=== PATIENT | female | born 1935 | race Caucasian/White ===

== ENCOUNTER → 2016-12-23 | Outpatient (CLI) | payer MEDICARE, OTHER ==
[~2016-12-23] MED LIST: DENOSUMAB 60 MG/ML 1 ML SYRINGE SQ ONE
[2016-12-23 13:16] VITALS: BP 130/73; PULSE 72; RESP 16; TEMP 97.7
== END | disposition home or self-care (01) ==
LOC: PROCWHC3 12:33
PROVIDERS: ATTEND Physician Assistant Medical
DX: M81.0 Age-related osteoporosis without current pathological fracture (principal)
CPT/HCPCS: 96372; J0897

== ENCOUNTER → 2017-03-25 | Outpatient (CLI) | payer MEDICARE, OTHER ==
--- NOTE | 2017-03-26 09:09 | MM ---
Reason for exam: screening (asymptomatic). Last mammogram was performed 4 years and 10 months ago. History: Patient is postmenopausal and has history of colon cancer at age 61. Family history of breast cancer in daughter at age 55. Benign excisional biopsy of the left breast. Physical Findings: A clinical breast exam by your physician is recommended on an annual basis and results should be correlated with mammographic findings. MG 3D Screening Mammo W/Cad Bilateral CC and MLO view(s) were taken. Prior study comparison: May 24, 2012, bilateral digital screening mammo w/CAD. July 16, 2010, bilateral digital screening mammogram. There are scattered fibroglandular densities. Finding: There are typically benign calcifications. There is a chronic nodularity in the right breast. ASSESSMENT: Benign, BI-RAD 2 RECOMMENDATION: Routine screening mammogram of both breasts in 1 year.
== END | disposition home or self-care (01) ==
LOC: RADMAMWWP 11:19
PROVIDERS: ATTEND Family Medicine
DX: Z12.31 Encounter for screening mammogram for malignant neoplasm of breast (principal); Z80.3 Family history of malignant neoplasm of breast
CPT/HCPCS: 77063; G0202

== ENCOUNTER → 2018-02-09 | Outpatient (CLI) | payer MEDICARE, OTHER ==
--- NOTE | 2018-02-10 10:01 | CT ---
EXAMINATION TYPE: CT abdomen pelvis w con DATE OF EXAM: 02/09/2018 COMPARISON: 09/02/2010 INDICATION: Upper Abdominal pain with nausea DLP: 604.6 mGycm, Automated exposure control for dose reduction was used. CONTRAST: 100 mL of Isovue 300. Study performed with Oral Contrast TECHNIQUE: Axial images were obtained from above the diaphragm to the pubic rami in the axial plane a t 5 mm thick sections. Reconstructed images are reviewed on the computer in the coronal plane. FINDINGS: Limited CT sections are obtained the lung bases. There is a stable 0.7 cm nodule within the posterio r right lung base. Lung bases are otherwise clear.. CT ABDOMEN: Liver: Normal Spleen: Normal Pancreas: Pancreas atrophy is present. There is a markedly dilated pancreatic duct measuring 1.0 cm i n the mid body of the pancreas and 0.5 cm at the distal tail of the pancreas. These measurements shou ld be 0.2 and 0.1 cm respectively. At the head of the pancreas there is a hypodense lesion estimated to measure 2.9 cm AP by 2.8 cm transverse. This appears to be abutting the superior mesenteric artery . Encasement is not identified. Common bile duct has mild prominence but is not dilated for postchole cystectomy patient and 0.6 cm. Adrenal glands: The adrenal glands are normal. Gallbladder: Normal Kidneys: No masses are evident. No hydronephrosis is present. No cysts are present. Delayed images were obtained through the kidneys, which remain unremarkable. Aorta: Vascular calcification is within the aorta. Inferior vena cava: Normal. CT PELVIS: Loops of bowel within the abdomen and pelvis are normal. There are loops of bowel which are incom pletely distended or lack oral contrast limiting their evaluation. Appendix: Normal as visualized. Urinary bladder: Decompressed with limited evaluation. Genitourinary structures: Uterus is not identified. There appear to be cysts on the right adnexal reg ion measuring 1.5 cm and 0.8 cm transverse. Left adnexal region is unremarkable. Osseous structures: No suspicious lytic or sclerotic lesions. Old pubic ramus fracture is evident. Sa croiliac joint degenerative changes are present. Facet degenerative changes and hypertrophy are withi n the lumbar spine. IMPRESSIONS: 1. Suspicious mass within the head of the pancreas measuring 2.9 x 2.8 cm with distal pancreatic mitchell t dilatation. Additional workup for neoplasm is recommended. 2. Suspected right ovarian cysts. A [place] level critical message alert has been initiated for Dina Sotomayor DO via the [employer] Critical Results System on 02/10/2018 9:58 AM. This message alert has been sent to Dina ortega DO via the preferences provided by the clinician for the receipt of Radiology Critical Findings. Message ID [id number].
== END | disposition home or self-care (01) ==
LOC: RADCTMAIN 16:46
PROVIDERS: ATTEND Family Medicine
DX: R74.8 Abnormal levels of other serum enzymes (principal)
CPT/HCPCS: 82565; 84520; 74177; 36415; Q9967

== ENCOUNTER → 2018-02-16 | Outpatient (CLI) | payer MEDICARE, OTHER ==
--- NOTE | 2018-02-17 01:37 | MR ---
EXAMINATION TYPE: MR pancreas wo/w con DATE OF EXAM: 02/16/2018 COMPARISON: NONE HISTORY: Mass of pancreas CONTRAST: Standard multiplanar, multisequence MRI departmental protocol utilizing 6.5 mL intravenous Gadavist g adolinium contrast. FINDINGS: Liver shows no focal defect. Bile ducts are not dilated. There is enlargement of the entire pancreatic duct with a beaded appearance. There is a 3 x 2.5 cm rounded mass involving the posterior pancreatic head with slight increased signal compared to the remainder of the gland on the T2 images . This area shows decreased enhancement compared to the remainder of the gland on the contrast images . There is fairly uniform enhancement of the spleen and liver. There is no adrenal mass. Kidneys have normal size and contour. There is no hydronephrosis. There is no retroperitoneal adenopathy. IMPRESSION: Irregularly dilated pancreatic duct consistent with chronic pancreatitis. Rounded solid mass involvin g the posterior pancreatic head suggestive of primary tumor. This appears unchanged compared to the CT scan of the abdomen of 02/09/2018.
== END | disposition home or self-care (01) ==
LOC: RADMRIMAIN 11:30
PROVIDERS: ATTEND Family Medicine
DX: K86.89 Other specified diseases of pancreas (principal)
CPT/HCPCS: 74183; A9581

== ENCOUNTER → 2018-03-19 | Outpatient (CLI) | payer MEDICARE, OTHER ==
--- NOTE | 2018-03-21 14:20 | PE ---
Nuclear medicine PET/CT HISTORY: Pancreatic carcinoma, initial Patient received 10.2 mCi F-18 FDG intravenously in delayed scanning was performed from the skull bas e to the mid thighs. Localization and attenuation correction CT scan was performed. Correlation to CT abdomen pelvis dated 02/09/2018, MR pancreas 02/16/2018 Neck and chest: There is no evident cervical adenopathy. No suspicious hypermetabolic uptake within t he neck. Coronary artery calcifications are dense, the heart is enlarged. There is no evident lung ma ss. There is a soft tissue mass within the right breast with associated hypermetabolic uptake, SUV 6.8, t he mass measures 15 mm. Abdomen pelvis: Poorly defined pancreatic head mass present measuring approximately 3.3 cm and shows an associated SUV 6.8. No additional suspicious hypermetabolic uptake, no retroperitoneal adenopathy. Inferior vena cava filter is in place. Dilated pancreatic duct is suspected. Intrahepatic biliary di lation also present, patient is post cholecystectomy. Atheromatous changes present within the abdomin al aorta. Osseous structures are within normal limits. IMPRESSION: Findings compatible with patient's history of pancreatic carcinoma. Correlate for possibl e right breast carcinoma. Indeterminate hypermetabolic uptake is noted as described. Consider mammogr aphy, right breast ultrasound.
== END | disposition home or self-care (01) ==
LOC: RADPETMAIN 14:03
PROVIDERS: ATTEND Internal Medicine Hematology & Oncology
DX: C25.0 Malignant neoplasm of head of pancreas (principal)
CPT/HCPCS: 78815; A9552

== ENCOUNTER 2018-03-30 11:46 | Inpatient (IN) | payer MEDICARE, OTHER ==
--- NOTE | 2018-03-30 12:40 | ED ---
General Adult HPI - General Chief complaint: Fall Stated complaint: Fall-Back Pain Time Seen by Provider: 03/30/18 11:49 Source: patient, RN notes reviewed, old records reviewed Mode of arrival: wheelchair Limitations: no limitations - History of Present Illness Initial comments: 83-year-old female presents status post fall. Patient was walking into the bank , she fell onto her low back. She is complaining of low back pain. According to her there was minor head injury. No loss of consciousness. Patient does not complain of head or neck pain. She was able to ambulate with assistance after the fall. She is on Coumadin for history of atrial fibrillation. Denies any focal numbness or weakness. Patient's pain is only in her lumbar spine. Location: genitals - Related Data Home Medications Medication Instructions Recorded Confirmed Isosorbide Mononitrate ER [Imdur] 30 mg PO DAILY 02/13/15 03/30/18 Metoprolol Tartrate [Lopressor] 50 mg PO BID 02/13/15 03/30/18 Mirabegron [Myrbetriq] 50 mg PO DAILY 02/13/15 03/30/18 Nitroglycerin Sl Tabs [Nitrostat] 0.4 mg SUBLINGUAL DAILY PRN 02/13/15 03/30/18 Simvastatin [Zocor] 40 mg PO HS 02/13/15 03/30/18 Calcium Carbonate/Vitamin D3 1 tab PO DAILY 03/30/18 03/30/18 [Calcium 600-Vit D3 200 Tablet] Diltiazem HCl [Cartia Xt] 240 mg PO DAILY 03/30/18 03/30/18 Ergocalciferol [Vitamin D2] 50,000 unit PO Q14D 03/30/18 03/30/18 Previous Rx's Medication Instructions Recorded Warfarin [Coumadin] 5 mg PO DAILY@1800 tab 08/06/17 Allergies Allergy/AdvReac Type Severity Reaction Status Date / Time sertraline [From Zoloft] Allergy Unknown Verified 03/30/18 12:18 Sulfa (Sulfonamide Allergy Itching Verified 03/30/18 12:18 Antibiotics) ibuprofen [From Motrin] AdvReac Diarrhea Verified 03/30/18 12:18 Penicillins AdvReac Itching Verified 03/30/18 12:18 Review of Systems ROS Statement: Those systems with pertinent positive or pertinent negative responses have been documented in the HPI. ROS Other: All systems not noted in ROS Statement are negative. Past Medical History Past Medical History: Atrial Fibrillation, Cancer, CVA/TIA, GERD/Reflux, Hyperlipidemia, Hypertension, Osteoarthritis (OA) Additional Past Medical History / Comment(s): leaky heart valve, hernia, hemmerhoids, had spinal menigitis, colon CA, DVT's, FX rib History of Any Multi-Drug Resistant Organisms: None Reported Past Surgical History: Back Surgery, Bowel Resection, Breast Surgery, Section, Hysterectomy, Joint Replacement, Orthopedic Surgery Additional Past Surgical History / Comment(s): colonoscopies, r/l eye implants, tendons repaired R leg and hand, Past Anesthesia/Blood Transfusion Reactions: No Reported Reaction Additional Past Anesthesia/Blood Transfusion Reaction / Comment(s): Pt has received blood in the past without reaction. Past Psychological History: No Psychological Hx Reported Smoking Status: Never smoker - Past Family History Daughter(s) Family Medical History: Cancer Additional Family Medical History / Comment(s): Daughter had breast cancer. Father Family Medical History: Cancer Additional Family Medical History / Comment(s): Father had colon cancer. Mother Family Medical History: Cancer Additional Family Medical History / Comment(s): Mother at the age of 29 yrs from a cerebral hemorrhage. Sister(s) Family Medical History: Deep Vein Thrombosis (DVT) General Exam Limitations: no limitations General appearance: alert, in no apparent distress Head exam: Present: atraumatic, normocephalic Eye exam: Present: normal appearance. Absent: PERRL (Right pupil 3 mm, left pupil 4 mm) ENT exam: Present: normal exam Neck exam: Present: normal inspection. Absent: tenderness, meningismus Respiratory exam: Present: normal lung sounds bilaterally Cardiovascular Exam: Present: regular rate, normal rhythm GI/Abdominal exam: Present: soft. Absent: distended, tenderness Extremities exam: Present: normal inspection, full ROM, normal capillary refill. Absent: tenderness, pedal edema, joint swelling, calf tenderness Back exam: Present: vertebral tenderness (Lumbar) Psychiatric exam: Present: normal affect, normal mood Skin exam: Present: warm, dry, intact. Absent: cyanosis, diaphoretic Course Vital Signs 03/30/18 03/30/18 11:54 14:08 Temperature 97.0 F L Pulse Rate 82 65 Respiratory 18 18 Rate Blood Pressure 114/73 118/68 O2 Sat by Pulse 98 98 Oximetry Medical Decision Making - Medical Decision Making 83-year-old female status post slip and fall with chief complaint of back pain. Patient did have minor head injury, CT is obtained as the patient is on Coumadin, CT is negative for intracranial hemorrhage or mass effect. CT cervical spine negative for fracture subluxation. Chest x-ray is negative for acute cardiopulmonary disease. Patient's INR is subtherapeutic at 1.1. Pelvis x-ray reveals concern for inferior and superior pubic rami fracture on the left , CT is obtained and this is negative for acute bony abnormality. Lumbar spine x-ray and CT is performed, shows L2 endplate compression fracture which is comminuted and minimally displaced. Case is discussed with Addi, physician surgical assistant covering Dr. Bah from orthopedics. This is nonsurgical. Given the patient's significant pain and difficulty with ambulating secondary to pain she will be admitted for further evaluation and pain control. Admitted to internal medicine with orthopedics on consult. - Lab Data Lab Results 03/30/18 Range/Units 13:22 PT 10.8 (9.0-12.0) sec INR 1.1 (<1.2) Disposition Clinical Impression: Fall, L2 vertebral fracture Disposition: ADMITTED IP TO THIS HOSP Condition: Stable Is patient prescribed a controlled substance at d/c from ED?: No Referrals: Dina Sotomayor DO [Primary Care Provider] - 1-2 days Time of Disposition: 14:59 Decision to Admit Reason: Admit from EC Decision Date: 03/30/18 Decision Time: 14:59
--- NOTE | 2018-03-30 13:00 | XR ---
EXAMINATION TYPE: XR chest 2V DATE OF EXAM: 03/30/2018 COMPARISON: 07/31/2017 HISTORY: Shortness of breath TECHNIQUE: Frontal and lateral views of the chest are obtained. FINDINGS: Scattered senescent parenchymal changes noted. Hyperinflation compatible with COPD. No evidence for infiltrate. No evidence for atelectasis. Heart size is stable. Mediastinal structures are stable and grossly unremarkable. No evidence for hilar prominence. Degenerative changes dorsal spine. IMPRESSION: 1. No evidence for acute pulmonary disease.
--- NOTE | 2018-03-30 13:02 | XR ---
EXAMINATION TYPE: XR pelvis AP view DATE OF EXAM: 03/30/2018 CLINICAL HISTORY: pain TECHNIQUE: Single view the pelvis is submitted. FINDINGS: Deformity inferior and superior pubic ramus on the left may reflect relatively recent fract ure. Correlate clinically. SI joints appear symmetric. IMPRESSION: 1. I cannot exclude acute or subacute fractures left superior and inferior pubic rami. ICD 10 closed FRACTURE, INITIAL EVALUATION
--- NOTE | 2018-03-30 13:15 | XR ---
Lumbar spine HISTORY: Trauma and pain 3 views of the lumbar spine, comparison to CT abdomen pelvis dated 02/09/2018 Superior endplate L2 shows loss of height of approximately 20%, there is cortical irregularity the an terior aspect of the superior endplate fracture, interval finding, no evident retropulsion. T12 also show some mild central depression which appears stable. Bone mineralization is reduced. Sclerosis pre sent in the posterior elements compatible with facet arthropathy. Lumbar vertebral bodies show preser estee alignment. There is multilevel spondylosis. Loss of disc height greatest at L5-S1. Inferior vena cava filter is noted incidentally in the right paraspinal location, no significant the filter at L1-2 level. There are vascular calcifications. Surgical clips present right upper quadrant. IMPRESSION: Acute superior endplate L2 fracture as described. Osteopenia. Facet arthropathy and degen erative disc disease. Additional findings above.
[2018-03-30] MEDS: MORPHINE SULFATE 4 MG/ML SYRINGE IM STA ×2 (13:18→14:28)
--- NOTE | 2018-03-30 13:36 | CT ---
EXAMINATION TYPE: CT brain kettyine wo con DATE OF EXAM: 03/30/2018 COMPARISON: CT brain August 20, 2014 HISTORY: Fall injury with headache and neck pain. Recently diagnosed pancreatic cancer. CT DLP: 1380.3 mGycm. Automated Exposure Control for Dose Reduction was Utilized. TECHNIQUE: CT scan of the head and cervical spine are performed without contrast. FINDINGS: There is no acute intracranial hemorrhage or midline shift identified. There is ventricul ar and sulcal prominence consistent with diffuse cerebral atrophy. There is low-attenuation in the pe riventricular white matter. There is progression from prior study. Suspect old infarct right strauss r adiata axial image 26. Age indeterminate but suspected old infarct right internal capsule anterior li mb axial image 19. Correlate clinically. Hyperostosis frontalis is present The globes are intact and the visualized sinuses are clear. The calvarium is intact. Cervical spine is visualized in its entirety from C1 through upper thoracic levels and demonstrates r eversal of normal cervical curvature without evidence of acute fracture or dislocation. Prevertebral soft tissue appears within normal limits. The C1-C2 articulation is within normal limits on the cor onal images. Osseous structures are demineralized. There is moderate to advanced disc space narrowing with mild to moderate spurring C4-C5 level. There is ossific fusion at C5-C6 and C6-C7 disc space levels. Posteri or spurring effaces anterior thecal sac at C4-C5 level on sagittal images. Review of axial images michael ws multilevel uncovertebral facet degenerative changes for reference bilaterally C3-C4 level axial im age 39 contributing to multilevel neural foraminal narrowing at the upper to mid cervical spine thyro id gland is normal in size. Lung apices are clear. Moderate to severe calcified plaque right greater than left carotid bulbs is present. Consider nonemergent carotid ultrasound follow-up to exclude sign ificant stenosis. IMPRESSION: 1. There is no acute fracture or dislocation evident in the cervical spine. 2. No acute intracranial hemorrhage or midline shift is seen.
[2018-03-30 13:49] LABS: INR 1.1 (<1.2); Prothrombin Time 10.8 sec (9.0-12.0)
--- NOTE | 2018-03-30 14:24 | CT ---
EXAMINATION TYPE: CT pelvis wo con DATE OF EXAM: 03/30/2018 COMPARISON: CT abdomen and pelvis February 09, 2018. PET CT March 19, 2018. HISTORY: Fall today, low back and pelvic pain. Newly diagnosed pancreatic cancer. CT DLP: 260.4 mGycm Automated exposure control for dose reduction was used. FINDINGS: Osseous structures are demineralized. There is no acute fracture or dislocation in the pelvis. There is old healed fracture deformity of the left inferior pelvic ramus unchanged from prior CT. There is mild to moderate symmetric axial joint space loss in both hips with mild to minimal acetabular spurri ng. Pubic symphysis is intact. Sacroiliac joints are maintained bilaterally. Mildly distended bladder is seen. Uterus is surgically absent or markedly atrophic. No suspicious sma ll or large bowel dilatation. Moderate calcified plaque distal abdominal aorta extending into pelvic branch vessels. Scattered pelvic phleboliths are seen bilaterally. IMPRESSION: NO ACUTE FRACTURE OR DISLOCATION IN PELVIS IS IDENTIFIED
--- NOTE | 2018-03-30 14:28 | CT ---
EXAMINATION TYPE: CT lumbar spine wo con DATE OF EXAM: 03/30/2018 2:17 PM COMPARISON: CT abdomen and pelvis February 09, 2018. Same-day lumbar spine x-ray. HISTORY: Fall today, low back pain. Newly diagnosed pancreatic cancer. CT DLP: 430.1 mGycm Automated exposure control for dose reduction was used. Unenhanced CT of the lumbar spine was performed. Bone and soft tissue window settings are submitted as well as coronal and sagittal reconstructions. 5 lumbar-type vertebra are redemonstrated. Osseous structures are demineralized. There is new acute m inimally displaced comminuted fracture involving the anterior superior L2 vertebra and endplates seen best sagittal image 32 where there is new mild height loss and mild step-off anteriorly axial image 30. No definitive extension to posterior margin or posterior retropulsion is identified. There is mil d to moderate disc space narrowing L5-S1 level otherwise disc space heights are fairly well-maintaine d. There is chronic mild height loss along superior T12 endplate redemonstrated. Review of axial images shows disc herniations and facet arthropathy L3-L4 through L5-S1 levels most p rominent L4-L5 level. There is moderate to severe calcified plaque of aorta extending into branch ves sels. There is an infrarenal IVC filter redemonstrated. There is partial visualization of duct obstru cting mass or neoplasm head uncinate process of pancreas axial image 22. IMPRESSION: New acute comminuted minimally displaced fracture involving anterior and superior endplat es L2 vertebra which correlates with same day x-ray.
[2018-03-30] MEDS ORDERED: NALOXONE 0.4 MG/ML 1 ML VIAL IV PRN (15:00)
[2018-03-30] MEDS ORDERED: MORPHINE SULFATE 2 MG/ML SYRINGE IV PRN (15:00)
--- NOTE | 2018-03-30 16:33 | P.CNOR ---
History of Present Illness - [facility] Consult date: 03/30/18 Consult reason: fracture History of present illness: This is a 83-year-old female who was recently admitted to [facility] after a fall. Patient was at the bank, she was walking to her car when she lost her balance and fell landing on her back. She was unable to ambulate, EMS was contacted and brought patient to the hospital. Upon arrival to the hospital, imaging and lab tests were done. Images demonstrated a L2 vertebral endplate fracture. I was contacted by the emergency room physician, I was able to discuss the case with him. I was unable to review the images and discussed the case with my attending Dr. Bah. Patient was then admitted under internal medicine with our orthopedic service on consult. Patient was evaluated today at bedside, she is resting comfortably. She notes most discomfort in the low back region with movement. She denies any loss of bowel or bladder function. She denies any new onset paresthesias of the lower and upper extremities. She denies any hip pain or bilateral knee pain. She denies any new onset of upper extremity pain. Review of Systems Constitutional: Reports as per HPI Past Medical History Past Medical History: Atrial Fibrillation, Cancer, CVA/TIA, Deep Vein Thrombosis (DVT), GERD/Reflux, Hyperlipidemia, Hypertension, Osteoarthritis (OA) Additional Past Medical History / Comment(s): leaky heart valve, hernia, hemmorhoids, had spinal menigitis, colon CA, DVT's, FX rib History of Any Multi-Drug Resistant Organisms: None Reported Past Surgical History: Back Surgery, Bowel Resection, Breast Surgery, Section, Hysterectomy, Joint Replacement, Orthopedic Surgery Additional Past Surgical History / Comment(s): colonoscopies, r/l eye implants, tendons repaired R leg and hand,ivc filter Past Anesthesia/Blood Transfusion Reactions: No Reported Reaction Additional Past Anesthesia/Blood Transfusion Reaction / Comm: Pt has received blood in the past without reaction. Smoking Status: Former smoker - Past Family History Daughter(s) Family Medical History: Cancer Additional Family Medical History / Comment(s): Daughter had breast cancer. Father Family Medical History: Cancer Additional Family Medical History / Comment(s): Father had colon cancer. Mother Family Medical History: Cancer Additional Family Medical History / Comment(s): Mother at the age of 29 yrs from a cerebral hemorrhage. Sister(s) Family Medical History: Deep Vein Thrombosis (DVT) Medications and Allergies Home Medications Medication Instructions Recorded Confirmed Type Isosorbide Mononitrate ER [Imdur] 30 mg PO DAILY 02/13/15 03/30/18 History Metoprolol Tartrate [Lopressor] 50 mg PO BID 02/13/15 03/30/18 History Mirabegron [Myrbetriq] 50 mg PO DAILY 02/13/15 03/30/18 History Nitroglycerin Sl Tabs [Nitrostat] 0.4 mg SUBLINGUAL DAILY PRN 02/13/15 03/30/18 History Simvastatin [Zocor] 40 mg PO HS 02/13/15 03/30/18 History Warfarin [Coumadin] 5 mg PO DAILY@1800 tab 08/06/17 03/30/18 Rx Calcium Carbonate/Vitamin D3 1 tab PO DAILY 03/30/18 03/30/18 History [Calcium 600-Vit D3 200 Tablet] Diltiazem HCl [Cartia Xt] 240 mg PO DAILY 03/30/18 03/30/18 History Ergocalciferol [Vitamin D2] 50,000 unit PO Q14D 03/30/18 03/30/18 History Allergies Allergy/AdvReac Type Severity Reaction Status Date / Time sertraline [From Zoloft] Allergy Unknown Verified 03/30/18 12:18 Sulfa (Sulfonamide Allergy Itching Verified 03/30/18 12:18 Antibiotics) ibuprofen [From Motrin] AdvReac Diarrhea Verified 03/30/18 12:18 Penicillins AdvReac Itching Verified 03/30/18 12:18 Physical Examination Orthopedic exam: No obvious open lesions or sores present throughout the bilateral lower extremities She is able to straight leg raise bilaterally Plantar flexion, dorsiflexion, EHL, FHL are intact bilaterally Dorsal pedis pulses 2+ bilaterally Sensation to light touch throughout bilateral lower extremities is intact Logroll maneuver of the bilateral lower extremities reproduces no pain There is tenderness with palpation throughout the lumbar region, also paravertebral muscles Range of motion of the upper extremities is intact, no significant strength deficits appreciated. Sensation to light touch throughout the upper extremities are intact, radial pulse bilaterally is 2+ Results - Labs Labs: Coagulation 03/30/18 Range/Units 13:22 INR 1.1 (<1.2) - Diagnostic results Lumbar AP/lateral x-ray: report reviewed CT Scan - lumbar: report reviewed, image reviewed Assessment and Plan Plan: Imaging: Multiple imaging studies were done, including pelvis x-rays and CT along with lumbar spine x-rays and CT. Images demonstrate a minimally displaced comminuted L2 endplate fracture with no retropulsion noted on the report. Assessment: 1. L2 vertebrae endplate fracture 2. Status post fall from standing 3. History of L4-L5 surgery, undetermined in an exact surgery date for patient 4. Other medical comorbidities plan: Plan: I was able to discuss the case, including physical exam findings and imaging studies with my attending Dr. Bah. No orthopedic surgical intervention needed at this time. Prescription was placed for a lumbar corset brace Once fitted for a brace, weight-bear as tolerated with walker Physical therapy evaluation Pain control GI and DVT prophylaxis per medical recommendation Medical recommendations Recommend rehab placement for therapy and assistance with activities of daily living Time with Patient: Less than 30
[2018-03-30] MEDS: traMADol 50 MG TAB PO SCH ×2 (19:10→22:26)
[2018-03-31] MEDS: traMADol 50 MG TAB PO SCH ×4 (08:41→21:52)
[2018-03-31] MEDS: ACETAMINOPHEN TAB 325 MG TAB PO PRN ×2 (10:12→16:25)
[2018-03-31] MEDS ORDERED: NITROGLYCERIN SL TABS 0.4 MG TAB SUBLINGUAL PRN (11:42)
[2018-03-31] MEDS ORDERED: ERGOCALCIFEROL 50,000 UNIT CAP PO SCH (11:45)
[2018-03-31 12:22] LABS: Basophils % (A) 1 %; Eosinophils # (A) 0.1 k/uL (0-0.7); Eosinophils % (A) 3 %; HCT 40.6 % (34.0-46.0); Lymphocytes # (A) 0.4 k/uL (1.0-4.8); Lymphocytes % (A) 9 %; MCH 32.4 pg (25.0-35.0); MCHC 34.5 g/dL (31.0-37.0); Mean Platelet Volume 6.7; Monocytes # (A) 0.3 k/uL (0-1.0); Monocytes % (A) 6 %; Neutrophils # (A) 3.3 k/uL (1.3-7.7); Neutrophils % (A) 80 %; Platelet Count 134 k/uL (150-450); RBC 4.32 m/uL (3.80-5.40); RDW 13.5 % (11.5-15.5); WBC 4.1 k/uL (3.8-10.6)
[2018-03-31 12:29] LABS: INR 1.4 (<1.2); Prothrombin Time 13.1 sec (9.0-12.0)
[2018-03-31 12:33] LABS: ALT 231 U/L (9-52); AST 132 U/L (14-36); Albumin 3.2 g/dL (3.5-5.0); Alkaline Phosphatase 159 U/L (38-126); Anion Gap 7 mmol/L; Blood Urea Nitrogen 13 mg/dL (7-17); Carbon Dioxide 30 mmol/L (22-30); Chloride 97 mmol/L (98-107); Glucose 121 mg/dL (74-99); Potassium 3.3 mmol/L (3.5-5.1); Sodium 134 mmol/L (137-145); Total Bilirubin 0.7 mg/dL (0.2-1.3); Total Protein 5.1 g/dL (6.3-8.2)
[2018-03-31] MEDS: METOPROLOL TARTRATE 50 MG TAB PO SCH ×2 (12:35→21:25)
[2018-03-31] MEDS: DILTIAZEM CD 240 MG CAP.ER.24H PO SCH (12:35)
[2018-03-31] MEDS: ISOSORBIDE MONONITRATE ER 30 MG TAB.ER.24H PO SCH (12:35)
[2018-03-31] MEDS ORDERED: POTASSIUM CHLORIDE ER 20 MEQ TAB.ER PO STA (14:49)
--- NOTE | 2018-03-31 14:56 | P.HPIM ---
History of Present Illness H&P Date: 03/31/18 Chief Complaint: Back pain with fall This is a 83-year-old female with a known past medical history of atrial fibrillation in which she is on Coumadin, CVA, hyperlipidemia, hypertension, PE and DVT status post [place] filter, history of colon cancer status post resection and chemo. Patient presented to the emergency room after a fall. Apparently she was trying to walk into the bank and which she tripped and fell backwards hitting her back and the back of her head. She denies any loss of consciousness. She was brought into the emergency room for further evaluation and treatment. Patient was able to ambulate with assistance after the fall. Patient had an x-ray and computed tomography scan of the lumbar spine showing a new acute comminuted minimally displaced fracture involving anterior and superior endplates of L2 vertebra. Patient seen by orthopedics. They're not planning any surgical intervention. They are recommending a back brace. Computed tomography scan of the brain and neck were negative. No evidence of any hemorrhage. Computed tomography scan of the pelvis was negative for any fracture. Patient is currently lying in bed comfortably no pain reported. She only has pain with movement. She denies any chest pain shortness of breath nausea vomiting bowel movement changes or urinary symptoms. Denies any fever chills or sweats. On admission INR was 1.1 did go up to 1.4. She was found to have elevated liver enzymes AST 132 ALT 231 and alk phos 159. Lipitor was discontinued. Patient also denies any numbness or tingling in the legs or feet. Patient denies any headaches, dizziness or vision changes Review of Systems Please refer to HPI otherwise unremarkable Past Medical History Past Medical History: Atrial Fibrillation, Cancer, CVA/TIA, Deep Vein Thrombosis (DVT), GERD/Reflux, Hyperlipidemia, Hypertension, Osteoarthritis (OA) Additional Past Medical History / Comment(s): leaky heart valve, hernia, hemmorhoids, had spinal menigitis, colon CA, DVT's, FX rib History of Any Multi-Drug Resistant Organisms: None Reported Past Surgical History: Back Surgery, Bowel Resection, Breast Surgery, Section, Hysterectomy, Joint Replacement, Orthopedic Surgery Additional Past Surgical History / Comment(s): colonoscopies, r/l eye implants, tendons repaired R leg and hand,ivc filter Past Anesthesia/Blood Transfusion Reactions: No Reported Reaction Additional Past Anesthesia/Blood Transfusion Reaction / Comment(s): Pt has received blood in the past without reaction. Smoking Status: Former smoker - Past Family History Daughter(s) Family Medical History: Cancer Additional Family Medical History / Comment(s): Daughter had breast cancer. Father Family Medical History: Cancer Additional Family Medical History / Comment(s): Father had colon cancer. Mother Family Medical History: Cancer Additional Family Medical History / Comment(s): Mother at the age of 29 yrs from a cerebral hemorrhage. Sister(s) Family Medical History: Deep Vein Thrombosis (DVT) Medications and Allergies Home Medications Medication Instructions Recorded Confirmed Type Isosorbide Mononitrate ER [Imdur] 30 mg PO DAILY 02/13/15 03/30/18 History Metoprolol Tartrate [Lopressor] 50 mg PO BID 02/13/15 03/30/18 History Mirabegron [Myrbetriq] 50 mg PO DAILY 02/13/15 03/30/18 History Nitroglycerin Sl Tabs [Nitrostat] 0.4 mg SUBLINGUAL DAILY PRN 02/13/15 03/30/18 History Simvastatin [Zocor] 40 mg PO HS 02/13/15 03/30/18 History Warfarin [Coumadin] 5 mg PO DAILY@1800 tab 08/06/17 03/30/18 Rx Calcium Carbonate/Vitamin D3 1 tab PO DAILY 03/30/18 03/30/18 History [Calcium 600-Vit D3 200 Tablet] Diltiazem HCl [Cartia Xt] 240 mg PO DAILY 03/30/18 03/30/18 History Ergocalciferol [Vitamin D2] 50,000 unit PO Q14D 03/30/18 03/30/18 History Allergies Allergy/AdvReac Type Severity Reaction Status Date / Time sertraline [From Zoloft] Allergy Unknown Verified 03/30/18 12:18 Sulfa (Sulfonamide Allergy Itching Verified 03/30/18 12:18 Antibiotics) ibuprofen [From Motrin] AdvReac Diarrhea Verified 03/30/18 12:18 Penicillins AdvReac Itching Verified 03/30/18 12:18 Physical Exam Vitals: Vital Signs Temp Pulse Pulse Resp BP BP Pulse Ox 03/31/18 12:37 98 113/78 03/31/18 07:30 98.3 F 83 16 115/65 03/31/18 01:30 98.2 F 83 16 97/55 94 L 03/30/18 19:53 84 16 99/56 99 03/30/18 15:37 97.1 F L 75 18 109/62 03/30/18 15:13 67 18 116/67 98 Intake and Output 03/30/18 03/31/18 03/31/18 22:59 06:59 14:59 Intake Total 400 80 658 Balance 400 80 658 Intake: IV 160 80 0.9 160 80 Oral 240 658 Other: Voiding Method Bedpan Diaper # Voids 2 1 3 Head normocephalic Neck supple Lungs clear to auscultation bilaterally no wheezing or crackles Heart regular rate and rhythm S1-S2, no rub or gallop Abdomen is soft nontender nondistended positive bowel sounds no hepatosplenomegaly Extremities no edema Neuro alert and orientated to 3 Results CBC & Chem 7: 03/31/18 12:03 03/31/18 12:03 Labs: Abnormal Lab Results - Last 24 Hours (Table) 03/31/18 03/31/18 03/31/18 Range/Units 12:03 12:03 12:03 Plt Count 134 L (150-450) k/uL Lymphocytes # 0.4 L (1.0-4.8) k/uL PT 13.1 H (9.0-12.0) sec INR 1.4 H (<1.2) Sodium 134 L (137-145) mmol/L Potassium 3.3 L (3.5-5.1) mmol/L Chloride 97 L (98-107) mmol/L Glucose 121 H (74-99) mg/dL AST 132 H (14-36) U/L ALT 231 H (9-52) U/L Alkaline Phosphatase 159 H (38-126) U/L Total Protein 5.1 L (6.3-8.2) g/dL Albumin 3.2 L (3.5-5.0) g/dL Thrombosis Risk Factor Assmnt - Choose All That Apply Any of the Below Risk Factors Present?: Yes Each Factor Represents 1 point: Obesity (BMI >25) Other Risk Factors: Yes Each Risk Factor Represents 3 Points: Age 75 years or older Thrombosis Risk Factor Assessment Total Risk Factor Score: 4 Thrombosis Risk Factor Assessment Level: Moderate Risk Assessment and Plan Assessment: 1. Fall with new acute comminuted minimally displaced fracture involving anterior and superior endplates of L2 vertebra: Patient seen by orthopedics they 've ordered a back brace and physical therapy. Also consults Dr. Springer for possible inpatient rehab 2. Fall with minor head injury. No loss of consciousness. Computed tomography scan of the brain negative for any bleed. 3. Elevated liver enzymes exact etiology unclear. Possibly medication induced. Lipitor discontinued. Check abdominal ultrasound 4. History of chronic atrial fibrillation: On Coumadin for anticoagulation. INR subtherapeutic. She'll be given Coumadin 5 mg tonight. Check PT/INR in a.m. 5. History of bilateral PE and left lower extremity DVT diagnosed in July 2017. Patient does have a [place] filter. Again note that INR is subtherapeutic's. She'll be placed on Lovenox 80 mg subcu every 12 hours until INR therapeutic 6. History of CVA 7. Hyperlipidemia 8. Essential hypertension 9. History of colon cancer in 1997: Status post colon resection and chemotherapy 10. 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 I have reviewed the Physician Shirt Presser's notes and agree with the documented findings and plan of care)
[2018-03-31] MEDS: ENOXAPARIN 80 MG/0.8 ML SYRINGE SQ SCH ×2 (15:33→21:53)
--- NOTE | 2018-03-31 17:32 | P.CONS ---
History of Present Illness - Chief Complaint Walking difficulty - History of Present Illness I had the opportunity to see patient for inpatient rehab consultation with regard to walking difficulty. She was admitted to [facility] March 30 history of fall and back pain. Lumbar x-ray and lumbar CT demonstrates L2 endplate fractures as well as facet hypertrophy L3-5. X-ray demonstrates osteopenia and facet and degenerative change. Head CT with old right strauss radiata and internal capsule infarct. C-spine CT with fusion C5, 6 as well as moderate DDD C4 with thecal effacement. Pelvic x-ray and CT negative. PT prescribed. [facility] who notes L2 fracture as well as history of lumbar surgery L4, 5. Previous functional history as elicited from patient: 83-year-old right-handed white female who is lives in one floor home with daughter and . Retired. Daughter does the cooking, laundry and driving. does some driving as well as but is in wheelchair. Patient independent with own sponge bath, gait with standard cane around the house and [address]ed walker outside the house. Dr. Son is regular doctor. History smoking but doesn't smoke or drink currently. Family history of cardiac disease in father. Review of Systems Review of systems: ENT: Denies sneezes or discharge. Eyes: Denies discharge or photophobia. Cardiac: Denies chest pain or palpitation. Pulmonary: Denies cough or shortness of breath. Breast: Denies discharge or lumps. Gastrointestinal: Denies nausea, emesis, constipation, diarrhea. Genitourinary: Denies discharge or frequency. Musculoskeletal: Low back pain. Neurologic: Denies motor or sensory change. Endocrine: Denies shakes or sweats. Oncology: Denies cancers. Dermatologic: Denies rash, itching, pruritus. ALLERGY/immunology: Denies sneezes, rashes. Past Medical History Past Medical History: Atrial Fibrillation, Cancer, CVA/TIA, Deep Vein Thrombosis (DVT), GERD/Reflux, Hyperlipidemia, Hypertension, Osteoarthritis (OA) Additional Past Medical History / Comment(s): leaky heart valve, hernia, hemmorhoids, had spinal menigitis, colon CA, DVT's, FX rib History of Any Multi-Drug Resistant Organisms: None Reported Past Surgical History: Back Surgery, Bowel Resection, Breast Surgery, Section, Hysterectomy, Joint Replacement, Orthopedic Surgery Additional Past Surgical History / Comment(s): colonoscopies, r/l eye implants, tendons repaired R leg and hand,ivc filter Past Anesthesia/Blood Transfusion Reactions: No Reported Reaction Additional Past Anesthesia/Blood Transfusion Reaction / Comm: Pt has received blood in the past without reaction. Smoking Status: Former smoker - Past Family History Daughter(s) Family Medical History: Cancer Additional Family Medical History / Comment(s): Daughter had breast cancer. Father Family Medical History: Cancer Additional Family Medical History / Comment(s): Father had colon cancer. Mother Family Medical History: Cancer Additional Family Medical History / Comment(s): Mother at the age of 29 yrs from a cerebral hemorrhage. Sister(s) Family Medical History: Deep Vein Thrombosis (DVT) Medications and Allergies Home Medications Medication Instructions Recorded Confirmed Type Isosorbide Mononitrate ER [Imdur] 30 mg PO DAILY 02/13/15 03/30/18 History Metoprolol Tartrate [Lopressor] 50 mg PO BID 02/13/15 03/30/18 History Mirabegron [Myrbetriq] 50 mg PO DAILY 02/13/15 03/30/18 History Nitroglycerin Sl Tabs [Nitrostat] 0.4 mg SUBLINGUAL DAILY PRN 02/13/15 03/30/18 History Simvastatin [Zocor] 40 mg PO HS 02/13/15 03/30/18 History Warfarin [Coumadin] 5 mg PO DAILY@1800 tab 08/06/17 03/30/18 Rx Calcium Carbonate/Vitamin D3 1 tab PO DAILY 03/30/18 03/30/18 History [Calcium 600-Vit D3 200 Tablet] Diltiazem HCl [Cartia Xt] 240 mg PO DAILY 03/30/18 03/30/18 History Ergocalciferol [Vitamin D2] 50,000 unit PO Q14D 03/30/18 03/30/18 History Allergies Allergy/AdvReac Type Severity Reaction Status Date / Time sertraline [From Zoloft] Allergy Unknown Verified 03/30/18 12:18 Sulfa (Sulfonamide Allergy Itching Verified 03/30/18 12:18 Antibiotics) ibuprofen [From Motrin] AdvReac Diarrhea Verified 03/30/18 12:18 Penicillins AdvReac Itching Verified 03/30/18 12:18 Physical Exam Vitals: Vital Signs Temp Pulse Resp BP Pulse Ox 03/31/18 14:45 97.6 F 61 16 99/64 96 03/31/18 12:37 98 113/78 03/31/18 07:30 98.3 F 83 16 115/65 03/31/18 01:30 98.2 F 83 16 97/55 94 L 03/30/18 19:53 84 16 99/56 99 Intake and Output 03/31/18 03/31/18 03/31/18 06:59 14:59 22:59 Intake Total 80 658 Balance 80 658 Intake: IV 80 0.9 80 Oral 658 Other: Voiding Method Bedpan Diaper # Voids 1 3 Skin: Atrophic, intact. General: Medium build and comfortable appearance. Head: Normocephalic, atraumatic. Eyes: Symmetric. Pupils equal round. Ears: Symmetric. Hearing within normal limits. Mouth: Clear. Neck: Supple. Carotid without bruit. Cardiac: Regular rate and rhythm. Lungs: Clear anteriorly and posteriorly. Abdomen: Soft active nontender. Extremities: Normal tone. Neurological: Mental status: Alert, cooperative, pleasant. Cranial nerves: Symmetric facial tone and trapezius. Motor: Active movement arms. Poor movement in legs, causes discomfort and back. Sensation: Intact throughout. DTRs: Symmetric and equal throughout. Mobility: Did not attempt to sit or stand on my own is having problems with back pain. Results CBC & Chem 7: 03/31/18 12:03 03/31/18 12:03 Labs: Abnormal Lab Results - Last 24 Hours (Table) 03/31/18 03/31/18 03/31/18 Range/Units 12:03 12:03 12:03 Plt Count 134 L (150-450) k/uL Lymphocytes # 0.4 L (1.0-4.8) k/uL PT 13.1 H (9.0-12.0) sec INR 1.4 H (<1.2) Sodium 134 L (137-145) mmol/L Potassium 3.3 L (3.5-5.1) mmol/L Chloride 97 L (98-107) mmol/L Glucose 121 H (74-99) mg/dL AST 132 H (14-36) U/L ALT 231 H (9-52) U/L Alkaline Phosphatase 159 H (38-126) U/L Total Protein 5.1 L (6.3-8.2) g/dL Albumin 3.2 L (3.5-5.0) g/dL Chest x-ray: report reviewed (Negative. Pelvic x-ray negative. Lumbar x-ray with L2 endplate fracture as well as osteopenia and facet and DDD changes.) CT Scan - head: report reviewed (Head with old infarcts right strauss radiata and internal capsule. C-spine with fusion C5, 6 and moderate DDD C4 with thecal effacement. Lumbar with facet hypertrophy L3-5 and L2 endplate fracture. Pelvic CT negative.) Assessment and Plan (1) L2 vertebral fracture Current Visit: Yes Status: Acute Code(s): S32.029A - UNSP FRACTURE OF SECOND LUMBAR VERTEBRA, INIT FOR CLOS FX SNOMED Code(s): 545779271 Plan: Impression: 1. Walking difficulty. 2. L2 fracture. 3. History of cervical spine and lumbar spine fusions. 4. Hypertension. 5. Discontinue. 6. History of stroke. 7. Active fibrillation. 8. Osteoarthritis. Comments and plan: PT ordered and I have added OT at this time. We will follow therapies with yourself.
[2018-03-31] MEDS: WARFARIN 5 MG TAB PO SCH (18:04)
[2018-03-31] MEDS ORDERED: diphenhydrAMINE 25 MG CAP PO PRN (20:49)
[2018-03-31] MEDS ORDERED: METOPROLOL TARTRATE 50 MG TAB PO SCH (21:00)
[2018-03-31] MEDS ORDERED: ATORVASTATIN 20 MG TAB PO SCH (21:00)
[2018-04-01] MEDS ORDERED: ACETAMINOPHEN TAB 325 MG TAB ONE (02:20)
[2018-04-01 07:08] LABS: Basophils % (A) 1 %; Eosinophils # (A) 0.1 k/uL (0-0.7); Eosinophils % (A) 3 %; HCT 41.5 % (34.0-46.0); HGB 13.9 gm/dL (11.4-16.0); Lymphocytes # (A) 0.5 k/uL (1.0-4.8); Lymphocytes % (A) 11 %; MCH 32.1 pg (25.0-35.0); MCHC 33.5 g/dL (31.0-37.0); MCV 95.9 fL (80.0-100.0); Mean Platelet Volume 6.6; Monocytes # (A) 0.3 k/uL (0-1.0); Monocytes % (A) 7 %; Neutrophils # (A) 3.6 k/uL (1.3-7.7); Neutrophils % (A) 76 %; Platelet Count 163 k/uL (150-450); RBC 4.32 m/uL (3.80-5.40); RDW 13.7 % (11.5-15.5); WBC 4.7 k/uL (3.8-10.6)
[2018-04-01 07:12] LABS: INR 1.5 (<1.2); Prothrombin Time 14.2 sec (9.0-12.0)
[2018-04-01 07:42] LABS: ALT 208 U/L (9-52); AST 131 U/L (14-36); Albumin 3.2 g/dL (3.5-5.0); Alkaline Phosphatase 183 U/L (38-126); Anion Gap 7 mmol/L; Blood Urea Nitrogen 12 mg/dL (7-17); Calcium 8.9 mg/dL (8.4-10.2); Carbon Dioxide 29 mmol/L (22-30); Chloride 97 mmol/L (98-107); Glucose 118 mg/dL (74-99); Potassium 3.1 mmol/L (3.5-5.1); Sodium 133 mmol/L (137-145); Total Bilirubin 0.9 mg/dL (0.2-1.3); Total Protein 5.2 g/dL (6.3-8.2)
--- NOTE | 2018-04-01 07:56 | P.PN ---
Progress Note - Text Progress Note Date: 04/01/18 S: The patient denies significant low back pain. O: Afebrile, vital signs stable Homans negative bilateral lower extremities Distal neurovascular status intact in the both lower extremities Minimal tenderness upper lumbar spine, no step off A/P: L2 compression fracture Ambulate with physical therapy in her lumbar corset with walker. Follow-up with Dr. Bah 2 weeks after discharge Call with any further questions.
[2018-04-01] MEDS ORDERED: POTASSIUM CHLORIDE ER 20 MEQ TAB.ER PO STA (08:18)
--- NOTE | 2018-04-01 08:23 | US ---
EXAMINATION TYPE: US liver DATE OF EXAM: 04/01/2018 COMPARISON: CT abdomen and pelvis Feb 09 2018. MRI pancreas February 16, 2018 CLINICAL HISTORY: elevated liver enzymes. Elevated LFT's, known pancreatic CA, GB removed EXAM MEASUREMENTS: Liver Length: 13.8 cm CBD: 1.3 cm Right Kidney: 9.5 x 4.0 x 4.5 cm Pancreas: Dilated pancreatic duct= 1.0 cm/ Hypoechoic lesion at panc head= 2.6 x 2.5 x 3.6 cm Liver: Intrahepatic dilatation, heterogeneous with possible vague hyperechoic lesion right posterior lobe= 1.8 x 1.4 x 1.6 cm Gallbladder: Surgically absent Evidence for sonographic Magallon's sign: No CBD: dilated= 1.3 cm Right Kidney: renal pelvis dilated with mild hydro suspected, cortical thinning IMPRESSION: Likely worsening moderate intrahepatic and extrahepatic biliary dilatation due to obstruc ting pancreatic head mass or neoplasm as enlarging common bile duct is noted and intrahepatic ductal dilatation is redemonstrated felt more prominent when comparing with prior MRI.
[2018-04-01] MEDS: ENOXAPARIN 80 MG/0.8 ML SYRINGE SQ SCH ×2 (09:24→20:29)
[2018-04-01] MEDS: traMADol 50 MG TAB PO SCH ×4 (09:24→22:18)
[2018-04-01] MEDS: ISOSORBIDE MONONITRATE ER 30 MG TAB.ER.24H PO SCH (09:25)
[2018-04-01] MEDS: CALCIUM CARB-VIT D 500MG-200UN 1 EACH TAB PO SCH (09:26)
[2018-04-01] MEDS: DILTIAZEM CD 240 MG CAP.ER.24H PO SCH (09:26)
[2018-04-01] MEDS: FAMOTIDINE 20 MG TAB PO SCH (09:31)
[2018-04-01] MEDS: METOPROLOL TARTRATE 25 MG TAB PO SCH ×2 (09:32→20:29)
[2018-04-01] MEDS: MAGNESIUM SULFATE-D5W PMX 1 GM in DEXTROSE/WATER 1 100ML.BAG IVPB SCH ×2 (10:58→12:14)
--- NOTE | 2018-04-01 11:04 | P.PN ---
Subjective Progress Note Date: 04/01/18 This is a 83-year-old female with a known past medical history of atrial fibrillation in which she is on Coumadin, CVA, hyperlipidemia, hypertension, PE and DVT status post Francine filter, history of colon cancer status post resection and chemo. Patient presented to the emergency room after a fall. Apparently she was trying to walk into the bank and which she tripped and fell backwards hitting her back and the back of her head. She denies any loss of consciousness. She was brought into the emergency room for further evaluation and treatment. Patient was able to ambulate with assistance after the fall. Patient had an x-ray and computed tomography scan of the lumbar spine showing a new acute comminuted minimally displaced fracture involving anterior and superior endplates of L2 vertebra. Patient seen by orthopedics. They're not planning any surgical intervention. They are recommending a back brace. Computed tomography scan of the brain and neck were negative. No evidence of any hemorrhage. Computed tomography scan of the pelvis was negative for any fracture. Patient is currently lying in bed comfortably no pain reported. She only has pain with movement. She denies any chest pain shortness of breath nausea vomiting bowel movement changes or urinary symptoms. Denies any fever chills or sweats. On admission INR was 1.1 did go up to 1.4. She was found to have elevated liver enzymes AST 132 ALT 231 and alk phos 159. Lipitor was discontinued. Patient also denies any numbness or tingling in the legs or feet. Patient denies any headaches, dizziness or vision changes 04/01/2018 patient is not complaining of any back pain. Has back brace in place. Orthopedics have signed off. Patient still having elevated liver enzymes does complain of some epigastric and right upper cardiac abdominal tenderness. It was brought to her attention that patient does have a history of pancreatic cancer. And apparently she follows a physician in [place]. Liver ultrasound completed showing likely worsening moderate intrahepatic and extrahepatic biliary dilation due to obstructing pancreatic head mass or neoplasm as enlarging common bile duct is noted and intrahepatic duct dilation is redemonstrated felt more prominent when comparing with prior MRI Objective - Vital Signs Vital signs: Vital Signs Temp 97.6 F 04/01/18 09:38 Pulse 65 04/01/18 09:38 Resp 16 04/01/18 09:38 BP 121/70 04/01/18 09:38 Pulse Ox 95 04/01/18 09:38 Intake & Output 03/31/18 04/01/18 04/01/18 18:59 06:59 18:59 Intake Total 778 60 118 Balance 778 60 118 Intake: IV 60 0.9 60 Oral 778 118 Other: Voiding Method Diaper Incontinent # Voids 3 2 2 - Exam Head normocephalic Neck supple Lungs clear to auscultation bilaterally no wheezing or crackles Heart regular rate and rhythm S1-S2, no rub or gallop Abdomen is soft epigastric and right upper quadrant tenderness nondistended positive bowel sounds no hepatosplenomegaly Extremities no edema Neuro alert and orientated to 3 - Labs CBC & Chem 7: 04/01/18 06:36 04/01/18 06:36 Labs: Abnormal Lab Results - Last 24 Hours (Table) 03/31/18 03/31/18 03/31/18 Range/Units 12:03 12:03 12:03 Plt Count 134 L (150-450) k/uL Lymphocytes # 0.4 L (1.0-4.8) k/uL PT 13.1 H (9.0-12.0) sec INR 1.4 H (<1.2) Sodium 134 L (137-145) mmol/L Potassium 3.3 L (3.5-5.1) mmol/L Chloride 97 L (98-107) mmol/L Glucose 121 H (74-99) mg/dL Magnesium (1.6-2.3) mg/dL AST 132 H (14-36) U/L ALT 231 H (9-52) U/L Alkaline Phosphatase 159 H (38-126) U/L Total Protein 5.1 L (6.3-8.2) g/dL Albumin 3.2 L (3.5-5.0) g/dL 04/01/18 04/01/18 04/01/18 Range/Units 06:36 06:36 06:36 Plt Count (150-450) k/uL Lymphocytes # 0.5 L (1.0-4.8) k/uL PT 14.2 H (9.0-12.0) sec INR 1.5 H (<1.2) Sodium 133 L (137-145) mmol/L Potassium 3.1 L (3.5-5.1) mmol/L Chloride 97 L (98-107) mmol/L Glucose 118 H (74-99) mg/dL Magnesium (1.6-2.3) mg/dL AST 131 H (14-36) U/L ALT 208 H (9-52) U/L Alkaline Phosphatase 183 H (38-126) U/L Total Protein 5.2 L (6.3-8.2) g/dL Albumin 3.2 L (3.5-5.0) g/dL 04/01/18 Range/Units 06:36 Plt Count (150-450) k/uL Lymphocytes # (1.0-4.8) k/uL PT (9.0-12.0) sec INR (<1.2) Sodium (137-145) mmol/L Potassium (3.5-5.1) mmol/L Chloride (98-107) mmol/L Glucose (74-99) mg/dL Magnesium 1.4 L (1.6-2.3) mg/dL AST (14-36) U/L ALT (9-52) U/L Alkaline Phosphatase (38-126) U/L Total Protein (6.3-8.2) g/dL Albumin (3.5-5.0) g/dL Assessment and Plan Assessment: 1. Fall with new acute comminuted minimally displaced fracture involving anterior and superior endplates of L2 vertebra: Patient has back brace. Pain controlled. Continue with physical therapy. She is being evaluated by Dr. Springer for possible inpatient rehab 2. Fall with minor head injury. No loss of consciousness. Computed tomography scan of the brain negative for any bleed. 3. History of pancreatic cancer: Patient having elevated liver enzymes. Intrahepatic and extrahepatic biliary dilation noted on ultrasound of the liver. Will have patient seen by GI service 4. History of chronic atrial fibrillation: On Coumadin for anticoagulation. INR subtherapeutic. She'll be given Coumadin 5 mg tonight. Check PT/INR in a.m. 5. History of bilateral PE and left lower extremity DVT diagnosed in July 2017. Patient does have a Francine filter. Again note that INR is subtherapeutic's. She'll be placed on Lovenox 80 mg subcu every 12 hours until INR therapeutic 6. History of CVA 7. Hyperlipidemia 8. Essential hypertension 9. History of colon cancer in 1997: Status post colon resection and chemotherapy 10. 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 Hypotension: Blood pressure had been in the 90s systolic. Repeat blood pressure 121/70. Decrease metoprolol to 25 mg twice a day and will continue with her Cardizem 1240 daily. Parameters have been placed on hold for systolic blood pressure less than 110 GI prophylaxis Pepcid and DVT prophylaxis Lovenox I performed an examination of the patient and discussed their management with the physician Repairer. I have reviewed the Physician Repairer's notes and agree with the documented findings and plan of care
[2018-04-01] MEDS: NON-FORMULARY DRUG (Mirabegron [Myrbetriq] 50 MG) PO SCH (12:55)
[2018-04-01] MEDS: WARFARIN 5 MG TAB PO SCH (17:29)
[2018-04-02] MEDS ORDERED: PERMETHRIN 5% CREAM 60 GM TUBE TOPICAL ONE (00:29)
[2018-04-02 06:45] LABS: Basophils % (A) 0 %; Eosinophils # (A) 0.1 k/uL (0-0.7); Eosinophils % (A) 3 %; HCT 42.7 % (34.0-46.0); HGB 14.8 gm/dL (11.4-16.0); Lymphocytes # (A) 0.4 k/uL (1.0-4.8); Lymphocytes % (A) 12 %; MCH 32.8 pg (25.0-35.0); MCHC 34.8 g/dL (31.0-37.0); MCV 94.3 fL (80.0-100.0); Mean Platelet Volume 7.1; Monocytes # (A) 0.3 k/uL (0-1.0); Monocytes % (A) 8 %; Neutrophils # (A) 2.8 k/uL (1.3-7.7); Neutrophils % (A) 76 %; Platelet Count 137 k/uL (150-450); RBC 4.53 m/uL (3.80-5.40); RDW 13.3 % (11.5-15.5); WBC 3.8 k/uL (3.8-10.6)
[2018-04-02 06:50] LABS: INR 2.2 (<1.2); Prothrombin Time 19.6 sec (9.0-12.0)
[2018-04-02 07:18] LABS: ALT 273 U/L (9-52); AST 248 U/L (14-36); Albumin 3.4 g/dL (3.5-5.0); Alkaline Phosphatase 257 U/L (38-126); Anion Gap 8 mmol/L; Blood Urea Nitrogen 7 mg/dL (7-17); Calcium 9.3 mg/dL (8.4-10.2); Carbon Dioxide 29 mmol/L (22-30); Chloride 97 mmol/L (98-107); Glucose 112 mg/dL (74-99); Potassium 3.8 mmol/L (3.5-5.1); Sodium 134 mmol/L (137-145); Total Protein 5.6 g/dL (6.3-8.2)
--- NOTE | 2018-04-02 12:01 | P.PN ---
Subjective Progress Note Date: 04/02/18 This is a 83-year-old female with a known past medical history of atrial fibrillation in which she is on Coumadin, CVA, hyperlipidemia, hypertension, PE and DVT status post Francine filter, history of colon cancer status post resection and chemo. Patient presented to the emergency room after a fall. Apparently she was trying to walk into the bank and which she tripped and fell backwards hitting her back and the back of her head. She denies any loss of consciousness. She was brought into the emergency room for further evaluation and treatment. Patient was able to ambulate with assistance after the fall. Patient had an x-ray and computed tomography scan of the lumbar spine showing a new acute comminuted minimally displaced fracture involving anterior and superior endplates of L2 vertebra. Patient seen by orthopedics. They're not planning any surgical intervention. They are recommending a back brace. Computed tomography scan of the brain and neck were negative. No evidence of any hemorrhage. Computed tomography scan of the pelvis was negative for any fracture. Patient is currently lying in bed comfortably no pain reported. She only has pain with movement. She denies any chest pain shortness of breath nausea vomiting bowel movement changes or urinary symptoms. Denies any fever chills or sweats. On admission INR was 1.1 did go up to 1.4. She was found to have elevated liver enzymes AST 132 ALT 231 and alk phos 159. Lipitor was discontinued. Patient also denies any numbness or tingling in the legs or feet. Patient denies any headaches, dizziness or vision changes 04/01/2018 patient is not complaining of any back pain. Has back brace in place. Orthopedics have signed off. Patient still having elevated liver enzymes does complain of some epigastric and right upper cardiac abdominal tenderness. It was brought to her attention that patient does have a history of pancreatic cancer. And apparently she follows a physician in [place]. Liver ultrasound completed showing likely worsening moderate intrahepatic and extrahepatic biliary dilation due to obstructing pancreatic head mass or neoplasm as enlarging common bile duct is noted and intrahepatic duct dilation is redemonstrated felt more prominent when comparing with prior MRI 04/02/2018 patient is alert and oriented 3 in no apparent distress she is complaining of some back pain otherwise no complaints, there is no fever or chills no headache or dizziness no chest pain no shortness of breath no cough no nausea or vomiting no abdominal pain no diarrhea no burning with urination no frequency or urgency and no hematuria. Objective - Vital Signs Vital signs: Vital Signs Temp 98.8 F 04/01/18 19:37 Pulse 71 04/01/18 19:37 Resp 14 04/01/18 19:37 BP 109/58 04/01/18 19:37 Pulse Ox 94 L 04/01/18 19:37 Intake & Output 04/01/18 04/02/18 04/02/18 18:59 06:59 18:59 Intake Total 708 300 Balance 708 300 Intake: Intake, IV Titration 200 Amount Magnesium Sulfate-D5w Pmx 200 1 gm In Dextrose/Water 1 100ml.bag @ 100 mls/hr IVPB Q1H [facility] Rx#: [id number] Oral 508 300 Other: Voiding Method Incontinent # Voids 2 1 1 - Exam Head normocephalic and atraumatic Neck supple no JVD no goiter no lymphadenopathy Lungs clear to auscultation bilaterally no wheezing or crackles Heart regular rate and rhythm S1-S2, no rub or gallop Abdomen is soft epigastric and right upper quadrant tenderness nondistended positive bowel sounds no hepatosplenomegaly Extremities no edema no cyanosis or clubbing Neuro alert and orientated to 3 - Labs CBC & Chem 7: 04/02/18 06:30 04/02/18 06:30 Labs: Abnormal Lab Results - Last 24 Hours (Table) 04/02/18 04/02/18 04/02/18 Range/Units 06:00 06:30 06:30 Plt Count 137 L (150-450) k/uL Lymphocytes # 0.4 L (1.0-4.8) k/uL PT 19.6 H (9.0-12.0) sec INR 2.2 H (<1.2) Sodium 134 L (137-145) mmol/L Chloride 97 L (98-107) mmol/L Creatinine 0.50 L (0.52-1.04) mg/dL Glucose 112 H (74-99) mg/dL AST 248 H (14-36) U/L ALT 273 H (9-52) U/L Alkaline Phosphatase 257 H (38-126) U/L Total Protein 5.6 L (6.3-8.2) g/dL Albumin 3.4 L (3.5-5.0) g/dL Assessment and Plan Plan: 1. Fall with new acute comminuted minimally displaced fracture involving anterior and superior endplates of L2 vertebra: Patient has back brace. Pain controlled. Continue with physical therapy. She is being evaluated by Dr. Springer for possible inpatient rehab 2. Fall with minor head injury. No loss of consciousness. Computed tomography scan of the brain negative for any bleed. 3. History of pancreatic cancer: Patient having elevated liver enzymes. Intrahepatic and extrahepatic biliary dilation noted on ultrasound of the liver. Will have patient seen by GI service, liver enzymes are increasing at this time, will discontinue Tylenol, awaiting gastroenterology input continue to monitor liver enzymes 4. History of chronic atrial fibrillation: On Coumadin for anticoagulation. INR subtherapeutic. She'll be given Coumadin 5 mg tonight. Check PT/INR in a.m. 5. History of bilateral PE and left lower extremity DVT diagnosed in July 2017. Patient does have a [place] filter. Again note that INR is subtherapeutic's. She'll be placed on Lovenox 80 mg subcu every 12 hours until INR therapeutic 6. History of CVA 7. Hyperlipidemia 8. Essential hypertension 9. History of colon cancer in 1997: Status post colon resection and chemotherapy 10. 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 Hypotension: Blood pressure had been in the 90s systolic. Repeat blood pressure 121/70. Decrease metoprolol to 25 mg twice a day and will continue with her Cardizem 1240 daily. Parameters have been placed on hold for systolic blood pressure less than 110 12. Skin rash, nursing staff were worried about the possibility of scabies, patient was given treatment last night. GI prophylaxis Pepcid and DVT prophylaxis Lovenox
[2018-04-02 12:41] LABS: Amylase 112 U/L (30-110); Lipase 448 U/L (23-300)
[2018-04-02] MEDS: NON-FORMULARY DRUG (Mirabegron [Myrbetriq] 50 MG) PO SCH (12:41)
[2018-04-02] MEDS: DILTIAZEM CD 240 MG CAP.ER.24H PO SCH (12:44)
[2018-04-02] MEDS: ISOSORBIDE MONONITRATE ER 30 MG TAB.ER.24H PO SCH (12:44)
[2018-04-02] MEDS: FAMOTIDINE 20 MG TAB PO SCH (12:44)
[2018-04-02] MEDS: CALCIUM CARB-VIT D 500MG-200UN 1 EACH TAB PO SCH (12:44)
[2018-04-02] MEDS: METOPROLOL TARTRATE 25 MG TAB PO SCH ×2 (12:44→21:05)
[2018-04-02] MEDS: traMADol 50 MG TAB PO SCH ×3 (12:45→18:29)
[2018-04-02] MEDS: ENOXAPARIN 80 MG/0.8 ML SYRINGE SQ SCH (12:59)
--- NOTE | 2018-04-02 13:51 | CONS ---
CONSULTATION DATE OF SERVICE: 04/02/2018. REQUESTING PHYSICIAN: Dr. Dina Sotomayor REASON FOR CONSULTATION: Pancreatic mass. HISTORY OF PRESENT ILLNESS: The patient is an 83-year-old pleasant white female who was admitted to the hospital after having a fall at home hitting her back and subsequently came into the emergency room and was diagnosed with an L2 fracture. from orthopedics is following the patient closely. There are no plans for any surgical intervention. While in the hospital, she had a CT of the lumbar spine which revealed minimally displaced fracture involving the L2 vertebrae. While the patient was in the hospital she had a serum transaminases and on further review of her records, she did have a CT of the abdomen as well as MRI of the abdomen done in February of 2018, which revealed a 3 x 2 cm known mass involving the posterior pancreatic head with evidence of dilated pancreatic duct and mild biliary ductal dilation. Subsequently, it appears that the patient was evaluated by Dr. Serna on an outpatient basis. The patient is an extremely poor historian. No history can be obtained from her at the present time. Presently, she denies any abdominal pain. Reports no nausea, vomiting. Denies any recent weight loss. PAST MEDICAL HISTORY: Significant for hypertension, degenerative joint disease, pancreatic mass noted 2 months ago for which she follows with Dr. Serna on an outpatient basis. At this time, I do not know if she had any further testing done or a biopsy performed. History of hypercholesteremia, atrial fibrillation on Coumadin. CURRENT MEDICATIONS: Include Imdur, Lopressor, Myrbetriq, Nitrostat, Zocor, Coumadin, Claritin, vitamin D3. ALLERGIES: TO ZOLOFT, SULFA, MOTRIN, PENICILLIN. PAST SURGICAL HISTORY: Bowel resection, breast surgery, section, back surgery, bilateral cataract surgery. FAMILY HISTORY: Mother had breast cancer. Father had colon cancer. REVIEW OF SYSTEMS: Cardiopulmonary: No chest pain, shortness of breath. Genitourinary: No dysuria or hematuria. Musculoskeletal: Unremarkable. SKIN: Unremarkable. Endocrine: Unremarkable. Psychiatric: Unremarkable. Neurological: Unremarkable. ENT vision unremarkable. Constitutional no recent weight loss. No fever, chills, night sweats. PHYSICAL EXAMINATION: Blood pressure 121/70, pulse is 65, temperature 97.6. HEENT examination unremarkable. Conjunctivae pink. Sclerae anicteric. Oral cavity no lesions. Neck no jugular venous distention or lymph node enlargement. Chest was clear to auscultation. HEART: Regular rate and rhythm. ABDOMEN: Soft. Bowel sounds are positive. No organomegaly. Extremities: No pedal edema. Skin no rashes. NEUROLOGIC: Alert and oriented x3. No focal deficits. LABS: From today WBC 3.8, hemoglobin 14.8, platelets 137, PT 19.6. INR 2.2. AST 248, ALT 273, alkaline phosphatase is 259, bilirubin is 1. IMPRESSION: 1. Elevated LFTs and recent ultrasound and prior CT scan as well as MRI of the pancreas in February of 2018 showed a 2 x 3 cm the lesion in the head of the pancreas with pancreatic ductal dilation. The patient was seen by Dr. Serna on an outpatient basis. Currently no records available from Dr. Serna's office. At this time, I do not know if she underwent endoscopic intervention or of the pancreas for a diagnosis. The patient is currently asymptomatic. She has mild elevation of serum transaminases, but clinically no obstructive jaundice. 2. Recent fall with L2 fracture for which Orthopedics following the patient closely. RECOMMENDATIONS: 1. We will consult Dr. Serna in regards to the pancreatic mass. 2. If no workup was done for the pancreatic mass, we can schedule her for an endoscopic ultrasound of the pancreas on an outpatient basis for tissue diagnosis. 3. Patient has severe . Thank you for this consultation. We will follow her closely during her hospital stay. MMODL / IJN: [id number] /
[2018-04-02] MEDS: WARFARIN 5 MG TAB PO SCH (18:29)
[2018-04-03] MEDS: traMADol 50 MG TAB PO SCH ×5 (00:19→23:09)
[2018-04-03] MEDS: HYDROcodone/APAP 5-325MG 1 EACH TAB PO PRN (03:30)
[2018-04-03 07:47] LABS: ALT 311 U/L (9-52); AST 378 U/L (14-36); Albumin 3.3 g/dL (3.5-5.0); Alkaline Phosphatase 304 U/L (38-126); Anion Gap 7 mmol/L; Blood Urea Nitrogen 10 mg/dL (7-17); Calcium 9.6 mg/dL (8.4-10.2); Carbon Dioxide 32 mmol/L (22-30); Chloride 96 mmol/L (98-107); Glucose 118 mg/dL (74-99); Potassium 3.9 mmol/L (3.5-5.1); Prothrombin Time 27.1 sec (9.0-12.0); Sodium 135 mmol/L (137-145); Total Bilirubin 1.8 mg/dL (0.2-1.3); Total Protein 5.5 g/dL (6.3-8.2)
[2018-04-03 08:08] LABS: RDW 13.5 % (11.5-15.5)
[2018-04-03 08:11] LABS: Basophils % (A) 1 %; Eosinophils # (A) 0.1 k/uL (0-0.7); Eosinophils % (A) 1 %; HCT 41.7 % (34.0-46.0); HGB 14.6 gm/dL (11.4-16.0); Lymphocytes # (A) 0.5 k/uL (1.0-4.8); Lymphocytes % (A) 13 %; MCH 33.3 pg (25.0-35.0); MCV 94.9 fL (80.0-100.0); Mean Platelet Volume 7.4; Monocytes # (A) 0.4 k/uL (0-1.0); Monocytes % (A) 10 %; Neutrophils # (A) 2.8 k/uL (1.3-7.7); Neutrophils % (A) 73 %; Platelet Count 159 k/uL (150-450); WBC 3.8 k/uL (3.8-10.6)
[2018-04-03] MEDS: NON-FORMULARY DRUG (Mirabegron [Myrbetriq] 50 MG) PO SCH (09:56)
[2018-04-03] MEDS: METOPROLOL TARTRATE 25 MG TAB PO SCH ×2 (09:57→20:16)
[2018-04-03] MEDS: FAMOTIDINE 20 MG TAB PO SCH (09:58)
[2018-04-03] MEDS: ISOSORBIDE MONONITRATE ER 30 MG TAB.ER.24H PO SCH (09:58)
[2018-04-03] MEDS: CALCIUM CARB-VIT D 500MG-200UN 1 EACH TAB PO SCH (09:59)
[2018-04-03] MEDS: DILTIAZEM CD 240 MG CAP.ER.24H PO SCH (09:59)
--- NOTE | 2018-04-03 10:34 | P.PN ---
Subjective Progress Note Date: 04/03/18 This is a 83-year-old female with a known past medical history of atrial fibrillation in which she is on Coumadin, CVA, hyperlipidemia, hypertension, PE and DVT status post Francine filter, history of colon cancer status post resection and chemo. Patient presented to the emergency room after a fall. Apparently she was trying to walk into the bank and which she tripped and fell backwards hitting her back and the back of her head. She denies any loss of consciousness. She was brought into the emergency room for further evaluation and treatment. Patient was able to ambulate with assistance after the fall. Patient had an x-ray and computed tomography scan of the lumbar spine showing a new acute comminuted minimally displaced fracture involving anterior and superior endplates of L2 vertebra. Patient seen by orthopedics. They're not planning any surgical intervention. They are recommending a back brace. Computed tomography scan of the brain and neck were negative. No evidence of any hemorrhage. Computed tomography scan of the pelvis was negative for any fracture. Patient is currently lying in bed comfortably no pain reported. She only has pain with movement. She denies any chest pain shortness of breath nausea vomiting bowel movement changes or urinary symptoms. Denies any fever chills or sweats. On admission INR was 1.1 did go up to 1.4. She was found to have elevated liver enzymes AST 132 ALT 231 and alk phos 159. Lipitor was discontinued. Patient also denies any numbness or tingling in the legs or feet. Patient denies any headaches, dizziness or vision changes 04/01/2018 patient is not complaining of any back pain. Has back brace in place. Orthopedics have signed off. Patient still having elevated liver enzymes does complain of some epigastric and right upper cardiac abdominal tenderness. It was brought to her attention that patient does have a history of pancreatic cancer. And apparently she follows a physician in [place]. Liver ultrasound completed showing likely worsening moderate intrahepatic and extrahepatic biliary dilation due to obstructing pancreatic head mass or neoplasm as enlarging common bile duct is noted and intrahepatic duct dilation is redemonstrated felt more prominent when comparing with prior MRI 04/02/2018 patient is alert and oriented 3 in no apparent distress she is complaining of some back pain otherwise no complaints, there is no fever or chills no headache or dizziness no chest pain no shortness of breath no cough no nausea or vomiting no abdominal pain no diarrhea no burning with urination no frequency or urgency and no hematuria. On 04/03/2018, patient is alert and oriented 3 in no apparent distress, she is complaining of mild back pain, she is complaining of constipation otherwise she denies any complaints, at this time total bilirubin is up to 1.8, AST is up to 378, ALT up to 311 and alkaline phosphatase up to 304. Patient was seen by gastroenterology, and they are waiting for records from oncology and from [facility] to decide in regard to further treatment steps. At this time and INR is elevated at 3.0, will hold Coumadin today and monitor INR in a.m.. Objective - Vital Signs Vital signs: Vital Signs Temp 98.0 F 04/03/18 07:01 Pulse 69 04/03/18 07:01 Resp 14 04/03/18 07:01 BP 121/70 04/03/18 07:01 Pulse Ox 94 L 04/03/18 07:01 Intake & Output 04/02/18 04/03/18 04/03/18 18:59 06:59 18:59 Intake Total 380 440 Balance 380 440 Intake: IV 130 320 0.9 130 320 Oral 250 120 Other: Voiding Method Incontinent Incontinent # Voids 1 1 - Exam Head normocephalic and atraumatic Neck supple no JVD no goiter no lymphadenopathy Lungs clear to auscultation bilaterally no wheezing or crackles Heart regular rate and rhythm S1-S2, no rub or gallop Abdomen is soft epigastric and right upper quadrant tenderness nondistended positive bowel sounds no hepatosplenomegaly Extremities no edema no cyanosis or clubbing Neuro alert and orientated to 3 - Labs CBC & Chem 7: 04/03/18 06:54 04/03/18 06:54 Labs: Abnormal Lab Results - Last 24 Hours (Table) 04/02/18 04/03/18 04/03/18 Range/Units 06:30 06:54 06:54 Lymphocytes # 0.5 L (1.0-4.8) k/uL PT 27.1 H (9.0-12.0) sec INR 3.0 H (<1.2) Sodium (137-145) mmol/L Chloride (98-107) mmol/L Carbon Dioxide (22-30) mmol/L Glucose (74-99) mg/dL Total Bilirubin (0.2-1.3) mg/dL AST (14-36) U/L ALT (9-52) U/L Alkaline Phosphatase (38-126) U/L Total Protein (6.3-8.2) g/dL Albumin (3.5-5.0) g/dL Amylase 112 H (30-110) U/L Lipase 448 H (23-300) U/L / Range/Units 06:54 Lymphocytes # (1.0-4.8) k/uL PT (9.0-12.0) sec INR (<1.2) Sodium 135 L (137-145) mmol/L Chloride 96 L (98-107) mmol/L Carbon Dioxide 32 H (22-30) mmol/L Glucose 118 H (74-99) mg/dL Total Bilirubin 1.8 H (0.2-1.3) mg/dL AST 378 H (14-36) U/L ALT 311 H (9-52) U/L Alkaline Phosphatase 304 H (38-126) U/L Total Protein 5.5 L (6.3-8.2) g/dL Albumin 3.3 L (3.5-5.0) g/dL Amylase (30-110) U/L Lipase (23-300) U/L Assessment and Plan Plan: 1. Fall with new acute comminuted minimally displaced fracture involving anterior and superior endplates of L2 vertebra: Patient has back brace. Pain controlled. Continue with physical therapy. She is being evaluated by Dr. Springer for possible inpatient rehab 2. Fall with minor head injury. No loss of consciousness. Computed tomography scan of the brain negative for any bleed. 3. History of pancreatic cancer: Patient having elevated liver enzymes. Intrahepatic and extrahepatic biliary dilation noted on ultrasound of the liver. Will have patient seen by GI service, liver enzymes are increasing at this time, will discontinue Tylenol, awaiting gastroenterology input continue to monitor liver enzymes. Patient was seen by Dr. Yael Johnson surgical garment assembly supervisor, awaiting records from oncology and [facility] to decide further management steps. Case was discussed with Dr. Johnson today. 4. History of chronic atrial fibrillation: On Coumadin for anticoagulation. INR subtherapeutic. She'll be given Coumadin 5 mg tonight. Check PT/INR in a.m. 5. History of bilateral PE and left lower extremity DVT diagnosed in July 2017. Patient does have a [place] filter. Again note that INR is subtherapeutic's. She'll be placed on Lovenox 80 mg subcu every 12 hours until INR therapeutic 6. History of CVA 7. Hyperlipidemia 8. Essential hypertension 9. History of colon cancer in 1997: Status post colon resection and chemotherapy 10. 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 Hypotension: Blood pressure had been in the 90s systolic. Repeat blood pressure 121/70. Decrease metoprolol to 25 mg twice a day and will continue with her Cardizem 1240 daily. Parameters have been placed on hold for systolic blood pressure less than 110 12. Skin rash, nursing staff were worried about the possibility of scabies, patient was given treatment last night. GI prophylaxis Pepcid and DVT prophylaxis Lovenox
--- NOTE | 2018-04-03 10:58 | PN ---
PROGRESS NOTE DATE OF SERVICE: April 03, 2018. REQUESTING PHYSICIAN: Dr. Ponce The patient is an 83-year-old pleasant white female admitted to hospital with recent fall and L2 fracture which is being managed conservatively. She was noted to have elevated LFTs and hence we are consulted. Ultrasound of the abdomen did show evidence of a pancreatic mass. It appears the patient has been seen by oncology and was referred to [facility] but patient has dementia and could not provide with any information. At this time, it is unclear if she underwent an ERCP/US of the pancreas. In any event, she is doing well. She has no complaints. PHYSICAL EXAMINATION: Blood pressure is 129/69, pulse rate 78, temperature 97.2. HEENT examination unremarkable. Conjunctivae pink. Sclerae anicteric. Oral cavity no lesions. Neck no jugular venous distention or lymph node enlargement. Chest was clear to auscultation. HEART: Regular rate and rhythm. ABDOMEN: Soft, nontender, nondistended. Bowel sounds are positive. No organomegaly. Extremities: No pedal edema. Skin no rashes. NEUROLOGIC: Alert and oriented x3. No focal deficits. LABS: From today T-bilirubin is 1.8, AST 378, ALT 311, alkaline phosphatase is 304 and bilirubin is 1.8. INR is 3. IMPRESSION: Elevated LFTs and mild jaundice secondary to biliary obstruction from pancreatic mass which was diagnosed 2 months ago. She was evaluated by Oncology in the last couple of months. It is unclear whether she had endoscopy intervention and US of the pancreas. RECOMMENDATIONS: 1. Oncology has been consulted. We will be evaluating the patient today. 2. We will discuss with them and based on her previous workup, I will consider if she needs any endoscopy intervention and CBD stent placement. Thank you for this consultation. MMODL / IJN: [id number] /
--- NOTE | 2018-04-03 11:18 | P.CONS ---
History of Present Illness - Reason for Consult Consult date: 04/02/18 Pancreatic mass, ?biopsy obtained? Requesting physician: Michelle Ponce - Chief Complaint Fall, back pain and L2 fracture - History of Present Illness Ms. Grewal is a pleasant 83 yo female who is here after fall for L2 fracture. She has a history of recently found pancreatic head mass. MRI from showed a pancreatic head mass. She underwent biopsy at OSH, path revealing adenocarcinoma. PET scan from 03/19/18 without evidence of metastatic disease. She was referred to surgery although likely not a surgical candidate due to her comorbidities and poor PS. She had a fall unfortunately and ended up hospitalized. Work up with CT head/c-spine and X rays of lower spine showed L2 fracture. Plan on conservative management per orthopedics and pain improved with brace. GI on board as she was also found to have mild transaminitis. Plan on possible EGD and wondering pt biopsy already done as no record in our EMR and pt poor historian. Pt overall currently feels well without any current pain. Denies any complaints. She does not recall having the biopsy although I did confirm with Dr. Serna that she has and pathology is adenocarcinoma. No smoking, alcohol or drugs. States her son has some type of cancer, diagnosed in his 50's. No other known family history of cancer. Review of Systems All systems: negative Constitutional: Reports as per HPI Past Medical History Past Medical History: Atrial Fibrillation, Cancer, CVA/TIA, Deep Vein Thrombosis (DVT), GERD/Reflux, Hyperlipidemia, Hypertension, Osteoarthritis (OA) Additional Past Medical History / Comment(s): leaky heart valve, hernia, hemmorhoids, had spinal menigitis, colon CA, DVT's, FX rib History of Any Multi-Drug Resistant Organisms: None Reported Past Surgical History: Back Surgery, Bowel Resection, Breast Surgery, Section, Hysterectomy, Joint Replacement, Orthopedic Surgery Additional Past Surgical History / Comment(s): colonoscopies, r/l eye implants, tendons repaired R leg and hand,ivc filter Past Anesthesia/Blood Transfusion Reactions: No Reported Reaction Additional Past Anesthesia/Blood Transfusion Reaction / Comm: Pt has received blood in the past without reaction. Smoking Status: Former smoker - Past Family History Daughter(s) Family Medical History: Cancer Additional Family Medical History / Comment(s): Daughter had breast cancer. Father Family Medical History: Cancer Additional Family Medical History / Comment(s): Father had colon cancer. Mother Family Medical History: Cancer Additional Family Medical History / Comment(s): Mother at the age of 29 yrs from a cerebral hemorrhage. Sister(s) Family Medical History: Deep Vein Thrombosis (DVT) Medications and Allergies Home Medications Medication Instructions Recorded Confirmed Type Isosorbide Mononitrate ER [Imdur] 30 mg PO DAILY 02/13/15 03/30/18 History Metoprolol Tartrate [Lopressor] 50 mg PO BID 02/13/15 03/30/18 History Mirabegron [Myrbetriq] 50 mg PO DAILY 02/13/15 03/30/18 History Nitroglycerin Sl Tabs [Nitrostat] 0.4 mg SUBLINGUAL DAILY PRN 02/13/15 03/30/18 History Simvastatin [Zocor] 40 mg PO HS 02/13/15 03/30/18 History Warfarin [Coumadin] 5 mg PO DAILY@1800 tab 08/06/17 03/30/18 Rx Calcium Carbonate/Vitamin D3 1 tab PO DAILY 03/30/18 03/30/18 History [Calcium 600-Vit D3 200 Tablet] Diltiazem HCl [Cartia Xt] 240 mg PO DAILY 03/30/18 03/30/18 History Ergocalciferol [Vitamin D2] 50,000 unit PO Q14D 03/30/18 03/30/18 History Allergies Allergy/AdvReac Type Severity Reaction Status Date / Time sertraline [From Zoloft] Allergy Unknown Verified 03/30/18 12:18 Sulfa (Sulfonamide Allergy Itching Verified 03/30/18 12:18 Antibiotics) ibuprofen [From Motrin] AdvReac Diarrhea Verified 03/30/18 12:18 Penicillins AdvReac Itching Verified 03/30/18 12:18 Physical Exam Vitals: Vital Signs Temp Pulse Resp BP Pulse Ox 04/02/18 19:29 97.2 F L 78 16 123/69 94 L 04/02/18 14:28 98 F 63 16 141/67 95 04/02/18 09:30 96.1 F L 78 16 130/75 94 L Intake and Output 04/02/18 04/02/18 04/02/18 06:59 14:59 22:59 Intake Total 380 280 Balance 380 280 Intake: IV 130 160 0.9 130 160 Oral 250 120 Other: Voiding Method Incontinent Incontinent Incontinent # Voids 1 1 1 Constitutional: No acute distress. Thin. Sitting up in chair wearing back brace. HEENT: Mucosa moist. Neck: Neck supple. Lymph: No neck/cervical LAD. Lungs: CTA-B. Heart: RRR. No LE edema. Abdomen: Soft, nontender, nondistended. MSK: 4/4 strength in all 4 extremities. Neuro: Alert and oriented x 3. No obvious gross neurologic deficits. Skin: No jaundice or rash. Psych: Appropriate affect. Results CBC & Chem 7: 04/03/18 06:54 04/03/18 06:54 Labs: Abnormal Lab Results - Last 24 Hours (Table) 04/02/18 04/02/18 04/02/18 Range/Units 06:00 06:30 06:30 Plt Count 137 L (150-450) k/uL Lymphocytes # 0.4 L (1.0-4.8) k/uL PT 19.6 H (9.0-12.0) sec INR 2.2 H (<1.2) Sodium 134 L (137-145) mmol/L Chloride 97 L (98-107) mmol/L Creatinine 0.50 L (0.52-1.04) mg/dL Glucose 112 H (74-99) mg/dL AST 248 H (14-36) U/L ALT 273 H (9-52) U/L Alkaline Phosphatase 257 H (38-126) U/L Total Protein 5.6 L (6.3-8.2) g/dL Albumin 3.4 L (3.5-5.0) g/dL Amylase (30-110) U/L Lipase (23-300) U/L 04/02/18 Range/Units 06:30 Plt Count (150-450) k/uL Lymphocytes # (1.0-4.8) k/uL PT (9.0-12.0) sec INR (<1.2) Sodium (137-145) mmol/L Chloride (98-107) mmol/L Creatinine (0.52-1.04) mg/dL Glucose (74-99) mg/dL AST (14-36) U/L ALT (9-52) U/L Alkaline Phosphatase (38-126) U/L Total Protein (6.3-8.2) g/dL Albumin (3.5-5.0) g/dL Amylase 112 H (30-110) U/L Lipase 448 H (23-300) U/L Comments: Spine X ray reviewed. CT head and C spine reviewed. Chest x-ray: report reviewed MRI - abdomen: report reviewed Assessment and Plan Assessment: 1. Pancreatic head adenocarcinoma 2. L2 fracture due to trauma/fall 3. Transaminitis Plan: Ms. Grewal is an 83 yo female with history of multiple comorbidities as listed above in history including recently found pancreatic head adenocarcinoma without evidence of metastatic disease, here for fall resulting in L2 fracture, which is being treated conservatively. I discussed pt's case with Dr. Srena, her primary oncologist. Unfortunately I do not have access to the office notes and records at this time. It seems that she has had staging work up and a biopsy, which revealed localized pancreatic adenocarcinoma. She does not seem to be a surgical candidate due to comorbidities and poor PS at baseline, however was referred to GI surgeon for possible whipple. For now, agree with GI work up regarding transaminitis. If unclear etiology, would consider checking liver MRI or PET scan to assess for possible liver met's contributing to her transaminitis prior to finalizing treatment plan.
[2018-04-04 06:59] LABS: Basophils % (A) 0 %; Eosinophils # (A) 0.1 k/uL (0-0.7); Eosinophils % (A) 2 %; HCT 45.3 % (34.0-46.0); HGB 15.3 gm/dL (11.4-16.0); Lymphocytes # (A) 0.5 k/uL (1.0-4.8); Lymphocytes % (A) 13 %; MCH 32.2 pg (25.0-35.0); MCHC 33.8 g/dL (31.0-37.0); MCV 95.1 fL (80.0-100.0); Mean Platelet Volume 6.9; Monocytes # (A) 0.4 k/uL (0-1.0); Monocytes % (A) 10 %; Neutrophils # (A) 2.7 k/uL (1.3-7.7); Neutrophils % (A) 73 %; Platelet Count 167 k/uL (150-450); RBC 4.77 m/uL (3.80-5.40); RDW 13.6 % (11.5-15.5); WBC 3.7 k/uL (3.8-10.6)
[2018-04-04 07:18] LABS: ALT 407 U/L (9-52); AST 500 U/L (14-36); Albumin 3.2 g/dL (3.5-5.0); Alkaline Phosphatase 307 U/L (38-126); Anion Gap 9 mmol/L; Blood Urea Nitrogen 11 mg/dL (7-17); Calcium 9.2 mg/dL (8.4-10.2); Carbon Dioxide 28 mmol/L (22-30); Chloride 98 mmol/L (98-107); Glucose 133 mg/dL (74-99); Potassium 3.5 mmol/L (3.5-5.1); Sodium 135 mmol/L (137-145); Total Bilirubin 2.3 mg/dL (0.2-1.3); Total Protein 5.4 g/dL (6.3-8.2)
[2018-04-04] MEDS: CALCIUM CARB-VIT D 500MG-200UN 1 EACH TAB PO SCH (08:41)
[2018-04-04] MEDS: DILTIAZEM CD 240 MG CAP.ER.24H PO SCH (08:41)
[2018-04-04] MEDS: traMADol 50 MG TAB PO SCH ×4 (08:41→23:38)
[2018-04-04] MEDS: FAMOTIDINE 20 MG TAB PO SCH (08:41)
[2018-04-04] MEDS: ISOSORBIDE MONONITRATE ER 30 MG TAB.ER.24H PO SCH (08:41)
[2018-04-04] MEDS: METOPROLOL TARTRATE 25 MG TAB PO SCH ×2 (08:41→21:31)
[2018-04-04] MEDS: NON-FORMULARY DRUG (Mirabegron [Myrbetriq] 50 MG) PO SCH (08:42)
--- NOTE | 2018-04-04 12:12 | P.PN ---
Subjective Progress Note Date: 04/04/18 This is a 83-year-old female with a known past medical history of atrial fibrillation in which she is on Coumadin, CVA, hyperlipidemia, hypertension, PE and DVT status post Francine filter, history of colon cancer status post resection and chemo. Patient presented to the emergency room after a fall. Apparently she was trying to walk into the bank and which she tripped and fell backwards hitting her back and the back of her head. She denies any loss of consciousness. She was brought into the emergency room for further evaluation and treatment. Patient was able to ambulate with assistance after the fall. Patient had an x-ray and computed tomography scan of the lumbar spine showing a new acute comminuted minimally displaced fracture involving anterior and superior endplates of L2 vertebra. Patient seen by orthopedics. They're not planning any surgical intervention. They are recommending a back brace. Computed tomography scan of the brain and neck were negative. No evidence of any hemorrhage. Computed tomography scan of the pelvis was negative for any fracture. Patient is currently lying in bed comfortably no pain reported. She only has pain with movement. She denies any chest pain shortness of breath nausea vomiting bowel movement changes or urinary symptoms. Denies any fever chills or sweats. On admission INR was 1.1 did go up to 1.4. She was found to have elevated liver enzymes AST 132 ALT 231 and alk phos 159. Lipitor was discontinued. Patient also denies any numbness or tingling in the legs or feet. Patient denies any headaches, dizziness or vision changes 04/01/2018 patient is not complaining of any back pain. Has back brace in place. Orthopedics have signed off. Patient still having elevated liver enzymes does complain of some epigastric and right upper cardiac abdominal tenderness. It was brought to her attention that patient does have a history of pancreatic cancer. And apparently she follows a physician in [place]. Liver ultrasound completed showing likely worsening moderate intrahepatic and extrahepatic biliary dilation due to obstructing pancreatic head mass or neoplasm as enlarging common bile duct is noted and intrahepatic duct dilation is redemonstrated felt more prominent when comparing with prior MRI 04/02/2018 patient is alert and oriented 3 in no apparent distress she is complaining of some back pain otherwise no complaints, there is no fever or chills no headache or dizziness no chest pain no shortness of breath no cough no nausea or vomiting no abdominal pain no diarrhea no burning with urination no frequency or urgency and no hematuria. On 04/03/2018, patient is alert and oriented 3 in no apparent distress, she is complaining of mild back pain, she is complaining of constipation otherwise she denies any complaints, at this time total bilirubin is up to 1.8, AST is up to 378, ALT up to 311 and alkaline phosphatase up to 304. Patient was seen by gastroenterology, and they are waiting for records from oncology and from [facility] to decide in regard to further treatment steps. At this time and INR is elevated at 3.0, will hold Coumadin today and monitor INR in a.m.. 04/04/2018 patient lying in bed comfortably. Denies any back pain or stomach pain. Patient's liver enzymes are worsening. Total bili has gone up from 1.8- 2.3. AST 378-500, ALT 311-407, alk phos 304-307. Awaiting reports from [facility] Objective - Vital Signs Vital signs: Vital Signs Temp 98.3 F 04/04/18 07:00 Pulse 73 04/04/18 07:00 Resp 16 04/04/18 07:00 BP 111/74 04/04/18 07:00 Pulse Ox 94 L 04/04/18 07:00 Intake & Output 04/03/18 04/04/18 04/04/18 18:59 06:59 18:59 Intake Total 240 560 Balance 240 560 Intake: IV 320 0.9 320 Oral 240 240 Other: Voiding Method Incontinent Incontinent # Voids 1 1 - Exam Head normocephalic Neck supple Lungs clear to auscultation bilaterally no wheezing or crackles Heart regular rate and rhythm S1-S2, no rub or gallop Abdomen is soft nontender nondistended positive bowel sounds Extremities no edema patient has excoriation and scabbing markings on her hands Neuro alert and orientated to 3 - Labs CBC & Chem 7: 04/04/18 06:29 04/04/18 06:29 Labs: Abnormal Lab Results - Last 24 Hours (Table) 04/04/18 04/04/18 Range/Units 06:29 06:29 WBC 3.7 L (3.8-10.6) k/uL Lymphocytes # 0.5 L (1.0-4.8) k/uL Sodium 135 L (137-145) mmol/L Glucose 133 H (74-99) mg/dL Total Bilirubin 2.3 H (0.2-1.3) mg/dL AST 500 H (14-36) U/L ALT 407 H (9-52) U/L Alkaline Phosphatase 307 H (38-126) U/L Total Protein 5.4 L (6.3-8.2) g/dL Albumin 3.2 L (3.5-5.0) g/dL Assessment and Plan Assessment: 1. Fall with new acute comminuted minimally displaced fracture involving anterior and superior endplates of L2 vertebra: Patient has back brace. Pain controlled. Continue with physical therapy. 2. Fall with minor head injury. No loss of consciousness. Computed tomography scan of the brain negative for any bleed. 3. History of pancreatic cancer: Elevated LFTs and mild jaundice secondary to biliary obstruction from pancreatic mass which was diagnosed 2 months ago. She has been followed by GI and oncology services. Awaiting further reports that were completed at [facility]. We'll await further recommendations per GI and oncology services for possible intervention 4. History of chronic atrial fibrillation: INR 3.0 yesterday. Coumadin held. Recheck PT/INR 5. History of bilateral PE and left lower extremity DVT diagnosed in July 2017. Patient does have a Francine filter. Continue monitor PT/INR 6. History of CVA 7. Hyperlipidemia 8. Essential hypertension 9. History of colon cancer in 1997: Status post colon resection and chemotherapy 10. 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 Hypotension: Blood pressure had been in the 90s systolic. Repeat blood pressure 121/70. Decrease metoprolol to 25 mg twice a day and will continue with her Cardizem 1240 daily. Parameters have been placed on hold for systolic blood pressure less than 110 12. Skin rash, nursing staff were worried about the possibility of scabies, patient was given treatment during this admission. But also rash could be related to jaundice GI prophylaxis Pepcid and DVT prophylaxis Lovenox Patient will be discharged to [facility] when medically stable I performed an examination of the patient and discussed their management with the physician Wet Process Miller Head Assistant. I have reviewed the Physician Wet Process Miller Head Assistant's notes and agree with the documented findings and plan of care
[2018-04-04 13:07] LABS: INR 3.3 (<1.2); Prothrombin Time 29.4 sec (9.0-12.0)
[2018-04-04] MEDS ORDERED: PHYTONADIONE ORAL 5 MG/5 ML ORAL.SYRG PO STA (13:51)
--- NOTE | 2018-04-04 20:04 | PN ---
PROGRESS NOTE Patient is an 83-year-old pleasant white female admitted to the hospital with a back fall following which she had an L2 fracture. While in the hospital she was noted elevated transaminases and bilirubin up to 3. She was diagnosed with pancreatic adenocarcinoma on endoscopic ultrasound of the pancreas done at [facility] about a month ago. At the bedside, the patient remains asymptomatic. PHYSICAL EXAMINATION: She appears comfortable. No apparent distress. VITAL SIGNS: Stable. Blood pressure is 112/86, pulse rate 74, temperature 97.7. HEENT: Examination unremarkable. Conjunctivae pink. Sclerae anicteric. Oral cavity, no lesions. Neck: No JVD or lymph node enlargement. Chest was clear to auscultation. HEART: Regular rate and rhythm. Abdomen is soft. Bowel sounds are positive. No organomegaly. EXTREMITIES: No pedal edema. SKIN: No rashes. NEUROLOGIC: Alert and oriented x3. No focal deficits. LAB: From today, bilirubin is 2.3, AST 500, ALT 407, alkaline phosphatase 307. INR is 3.3. IMPRESSION: 1. This is a lady with recently diagnosed pancreatic adenocarcinoma with endoscopic ultrasound with biopsy about a month ago when she presented with abdominal pain but normal serum transaminases. However, during this hospitalization, she is noted to have elevated LFTs and bilirubin up to 2.3. Ultrasound of the abdomen showed evidence of extrahepatic biliary obstruction, most likely related to pancreatic mass. No evidence of liver metastasis on recent ultrasound of the abdomen. 2. Recent L2 fracture. 3. History of deep venous thrombosis/pulmonary embolism on Coumadin with INR of 3.3. RECOMMENDATIONS: Discussed with the patient's family as well as the patient at the bedside. In view of elevated serum transaminases and bilirubin up to 2.3, which indicates possible GI obstruction related to pancreatic head mass, she will need to have a biliary drainage procedure with an ERCP and CBD stent placement. I discussed with the family the risks, benefits, and complications of procedure and also discussed with the RN regarding reversal of coagulopathy and once INR is 1.5 will plan on ERCP during this hospitalization. Thank you for this consultation. GAYLE / REBECA: [id number] /
[2018-04-05 07:40] LABS: Basophils % (A) 1 %; Eosinophils # (A) 0.1 k/uL (0-0.7); Eosinophils % (A) 2 %; HGB 14.8 gm/dL (11.4-16.0); Lymphocytes # (A) 0.5 k/uL (1.0-4.8); Lymphocytes % (A) 13 %; MCH 32.1 pg (25.0-35.0); MCHC 33.6 g/dL (31.0-37.0); MCV 95.7 fL (80.0-100.0); Mean Platelet Volume 7.1; Monocytes # (A) 0.4 k/uL (0-1.0); Monocytes % (A) 10 %; Neutrophils # (A) 2.7 k/uL (1.3-7.7); Neutrophils % (A) 71 %; Platelet Count 157 k/uL (150-450); RDW 13.5 % (11.5-15.5); WBC 3.8 k/uL (3.8-10.6)
[2018-04-05 07:52] LABS: INR 1.9 (<1.2); Prothrombin Time 16.9 sec (9.0-12.0)
[2018-04-05 08:12] LABS: ALT 436 U/L (9-52); AST 452 U/L (14-36); Albumin 3.2 g/dL (3.5-5.0); Alkaline Phosphatase 324 U/L (38-126); Anion Gap 8 mmol/L; Blood Urea Nitrogen 13 mg/dL (7-17); Carbon Dioxide 26 mmol/L (22-30); Chloride 100 mmol/L (98-107); Glucose 107 mg/dL (74-99); Potassium 3.6 mmol/L (3.5-5.1); Sodium 134 mmol/L (137-145); Total Bilirubin 4.3 mg/dL (0.2-1.3); Total Protein 5.3 g/dL (6.3-8.2)
[2018-04-05] MEDS: NON-FORMULARY DRUG (Mirabegron [Myrbetriq] 50 MG) PO SCH (08:31)
[2018-04-05] MEDS: traMADol 50 MG TAB PO SCH ×3 (08:34→17:36)
[2018-04-05] MEDS: DILTIAZEM CD 240 MG CAP.ER.24H PO SCH (08:34)
[2018-04-05] MEDS: CALCIUM CARB-VIT D 500MG-200UN 1 EACH TAB PO SCH (08:34)
[2018-04-05] MEDS: FAMOTIDINE 20 MG TAB PO SCH (08:35)
[2018-04-05] MEDS: METOPROLOL TARTRATE 25 MG TAB PO SCH ×2 (08:35→21:43)
[2018-04-05] MEDS: ISOSORBIDE MONONITRATE ER 30 MG TAB.ER.24H PO SCH (08:35)
--- NOTE | 2018-04-05 08:46 | P.PN ---
Subjective Progress Note Date: 04/05/18 Principal diagnosis: Elevated liver enzymes obstructive jaundice pancreatic mass Denies abdominal pain. LFTs increased total bilirubin 4.3. INR improved with vitamin K presently 1.9. Afebrile. Objective - Vital Signs Vital signs: Vital Signs Temp 97.5 F L 04/05/18 07:40 Pulse 96 04/05/18 07:40 Resp 16 04/05/18 07:40 BP 149/91 04/05/18 07:40 Pulse Ox 95 04/05/18 07:40 Intake & Output 04/04/18 04/05/18 04/05/18 18:59 06:59 18:59 Intake Total 82 120 Balance 82 120 Intake: IV 80 0.9 80 Oral 2 120 Other: Voiding Method Incontinent # Voids 1 - Exam General: Jaundice. Sclerae icterus. The patient is alert, oriented, in no acute distress. HET: Head is normocephalic and atraumatic. Pupils are equal and reactive. Oropharynx is clear without lesions. Neck: Supple without lymphadenopathy. Trachea midline. Heart: S1 S2. Regular rate and rhythm. Lungs: No crackles or wheezes are heard. Abdomen: Soft, nontender, nondistended with bowel sounds. No peritoneal signs. No palpable organomegaly or masses. Extremities: Normal skin color and turgor. No cyanosis, rash, ulceration, clubbing, or edema. Radial and pedal pulses are 2/4 bilaterally. Neurological: No focal deficits. Strength and sensation are grossly intact. - Labs CBC & Chem 7: 04/05/18 06:36 04/05/18 06:36 Labs: Abnormal Lab Results - Last 24 Hours (Table) 04/04/18 04/05/18 04/05/18 Range/Units 12:31 06:36 06:36 Lymphocytes # 0.5 L (1.0-4.8) k/uL PT 29.4 H (9.0-12.0) sec INR 3.3 H (<1.2) Sodium 134 L (137-145) mmol/L Glucose 107 H (74-99) mg/dL Total Bilirubin 4.3 H (0.2-1.3) mg/dL AST 452 H (14-36) U/L ALT 436 H (9-52) U/L Alkaline Phosphatase 324 H (38-126) U/L Total Protein 5.3 L (6.3-8.2) g/dL Albumin 3.2 L (3.5-5.0) g/dL 04/05/18 Range/Units 06:36 Lymphocytes # (1.0-4.8) k/uL PT 16.9 H (9.0-12.0) sec INR 1.9 H (<1.2) Sodium (137-145) mmol/L Glucose (74-99) mg/dL Total Bilirubin (0.2-1.3) mg/dL AST (14-36) U/L ALT (9-52) U/L Alkaline Phosphatase (38-126) U/L Total Protein (6.3-8.2) g/dL Albumin (3.5-5.0) g/dL Assessment and Plan (1) Obstructive jaundice due to cancer Current Visit: Yes Status: Acute Code(s): K83.1 - OBSTRUCTION OF BILE DUCT; C80.1 - MALIGNANT (PRIMARY) NEOPLASM, UNSPECIFIED SNOMED Code(s): 78150830 (2) Pancreatic cancer Current Visit: Yes Status: Acute Code(s): C25.9 - MALIGNANT NEOPLASM OF PANCREAS, UNSPECIFIED SNOMED Code(s): 895858815 (3) Elevated liver enzymes Current Visit: Yes Status: Acute Code(s): R74.8 - ABNORMAL LEVELS OF OTHER SERUM ENZYMES SNOMED Code(s): 594011700 (4) Warfarin-induced coagulopathy Current Visit: Yes Status: Acute Code(s): D68.32 - HEMORRHAGIC DISORD D/T EXTRINSIC CIRCULATING ANTICOAGULANTS; T45.515A - ADVERSE EFFECT OF ANTICOAGULANTS, INITIAL ENCOUNTER SNOMED Code(s): 21133578 Plan: 1. Clear liquid diet for dinner followed by nothing by mouth after midnight. ERCP evaluation tomorrow. Repeat CMP/PT/INR in a.m. Continue to hold anticoagulation. The safety person has discussed the risks, benefits and alternative therapies for the above-mentioned procedure and for both sedation/analgesia as well as necessary blood product administration, if indicated, as they pertain to this patient. The patient has indicated understanding and acceptance of the risks and procedures discussed. Assessment and plan a care discussed with Dr. Johnson
--- NOTE | 2018-04-05 13:17 | P.PN ---
Subjective Progress Note Date: 04/05/18 This is a 83-year-old female with a known past medical history of atrial fibrillation in which she is on Coumadin, CVA, hyperlipidemia, hypertension, PE and DVT status post Francine filter, history of colon cancer status post resection and chemo. Patient presented to the emergency room after a fall. Apparently she was trying to walk into the bank and which she tripped and fell backwards hitting her back and the back of her head. She denies any loss of consciousness. She was brought into the emergency room for further evaluation and treatment. Patient was able to ambulate with assistance after the fall. Patient had an x-ray and computed tomography scan of the lumbar spine showing a new acute comminuted minimally displaced fracture involving anterior and superior endplates of L2 vertebra. Patient seen by orthopedics. They're not planning any surgical intervention. They are recommending a back brace. Computed tomography scan of the brain and neck were negative. No evidence of any hemorrhage. Computed tomography scan of the pelvis was negative for any fracture. Patient is currently lying in bed comfortably no pain reported. She only has pain with movement. She denies any chest pain shortness of breath nausea vomiting bowel movement changes or urinary symptoms. Denies any fever chills or sweats. On admission INR was 1.1 did go up to 1.4. She was found to have elevated liver enzymes AST 132 ALT 231 and alk phos 159. Lipitor was discontinued. Patient also denies any numbness or tingling in the legs or feet. Patient denies any headaches, dizziness or vision changes 04/01/2018 patient is not complaining of any back pain. Has back brace in place. Orthopedics have signed off. Patient still having elevated liver enzymes does complain of some epigastric and right upper cardiac abdominal tenderness. It was brought to her attention that patient does have a history of pancreatic cancer. And apparently she follows a physician in [place]. Liver ultrasound completed showing likely worsening moderate intrahepatic and extrahepatic biliary dilation due to obstructing pancreatic head mass or neoplasm as enlarging common bile duct is noted and intrahepatic duct dilation is redemonstrated felt more prominent when comparing with prior MRI 04/02/2018 patient is alert and oriented 3 in no apparent distress she is complaining of some back pain otherwise no complaints, there is no fever or chills no headache or dizziness no chest pain no shortness of breath no cough no nausea or vomiting no abdominal pain no diarrhea no burning with urination no frequency or urgency and no hematuria. On 04/03/2018, patient is alert and oriented 3 in no apparent distress, she is complaining of mild back pain, she is complaining of constipation otherwise she denies any complaints, at this time total bilirubin is up to 1.8, AST is up to 378, ALT up to 311 and alkaline phosphatase up to 304. Patient was seen by gastroenterology, and they are waiting for records from oncology and from [facility] to decide in regard to further treatment steps. At this time and INR is elevated at 3.0, will hold Coumadin today and monitor INR in a.m.. 04/04/2018 patient lying in bed comfortably. Denies any back pain or stomach pain. Patient's liver enzymes are worsening. Total bili has gone up from 1.8- 2.3. AST 378-500, ALT 311-407, alk phos 304-307. Awaiting reports from [facility] 04/05/2018 patient's INR is down to 1.9. ERCP with stent scheduled for tomorrow. Patient denies any stomach or back pain. Total bili 4.3 AST 432 and ALT 436. Patient complaining of constipation. Objective - Vital Signs Vital signs: Vital Signs Temp 97.5 F L 04/05/18 07:40 Pulse 96 04/05/18 07:40 Resp 16 04/05/18 07:40 BP 149/91 04/05/18 07:40 Pulse Ox 95 04/05/18 07:40 Intake & Output 04/04/18 04/05/18 04/05/18 18:59 06:59 18:59 Intake Total 82 120 Balance 82 120 Intake: IV 80 0.9 80 Oral 2 120 Other: Voiding Method Incontinent Diaper # Voids 1 2 - Exam Head normocephalic. Scleral icterus jaundice Neck supple Lungs clear to auscultation bilaterally no wheezing or crackles Heart regular rate and rhythm S1-S2, no rub or gallop Abdomen is soft nontender nondistended positive bowel sounds Extremities no edema patient has excoriation and scabbing markings on her hands Neuro alert and orientated to 3 - Labs CBC & Chem 7: 04/05/18 06:36 04/05/18 06:36 Labs: Abnormal Lab Results - Last 24 Hours (Table) 04/04/18 04/05/18 04/05/18 Range/Units 12:31 06:36 06:36 Lymphocytes # 0.5 L (1.0-4.8) k/uL PT 29.4 H (9.0-12.0) sec INR 3.3 H (<1.2) Sodium 134 L (137-145) mmol/L Glucose 107 H (74-99) mg/dL Total Bilirubin 4.3 H (0.2-1.3) mg/dL AST 452 H (14-36) U/L ALT 436 H (9-52) U/L Alkaline Phosphatase 324 H (38-126) U/L Total Protein 5.3 L (6.3-8.2) g/dL Albumin 3.2 L (3.5-5.0) g/dL 04/05/18 Range/Units 06:36 Lymphocytes # (1.0-4.8) k/uL PT 16.9 H (9.0-12.0) sec INR 1.9 H (<1.2) Sodium (137-145) mmol/L Glucose (74-99) mg/dL Total Bilirubin (0.2-1.3) mg/dL AST (14-36) U/L ALT (9-52) U/L Alkaline Phosphatase (38-126) U/L Total Protein (6.3-8.2) g/dL Albumin (3.5-5.0) g/dL Assessment and Plan Assessment: 1. Fall with new acute comminuted minimally displaced fracture involving anterior and superior endplates of L2 vertebra: Patient has back brace. Pain controlled. Continue with physical therapy. 2. Fall with minor head injury. No loss of consciousness. Computed tomography scan of the brain negative for any bleed. 3. History of pancreatic cancer: Elevated LFTs and mild jaundice secondary to biliary obstruction from pancreatic mass which was diagnosed 2 months ago. She has been followed by GI and oncology services. Patient scheduled for ERCP evaluation tomorrow 4. History of chronic atrial fibrillation: 1.9 after vitamin K. Readdress anticoagulation tomorrow after procedure 5. History of bilateral PE and left lower extremity DVT diagnosed in July 2017. Patient does have a [place] filter. Continue monitor PT/INR 6. History of CVA 7. Hyperlipidemia 8. Essential hypertension 9. History of colon cancer in 1997: Status post colon resection and chemotherapy 10. 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 Hypotension: Blood pressure had been in the 90s systolic. Repeat blood pressure 121/70. Decrease metoprolol to 25 mg twice a day and will continue with her Cardizem 240 daily. Parameters have been placed on hold for systolic blood pressure less than 110. Blood pressures are stable 12. Skin rash, nursing staff were worried about the possibility of scabies, patient was given treatment during this admission. But also rash could be related to jaundice GI prophylaxis Pepcid and DVT prophylaxis Lovenox Patient will be discharged to [facility] when medically stable I performed an examination of the patient and discussed their management with the physician Neurology Tech. I have reviewed the Physician Neurology Tech's notes and agree with the documented findings and plan of care
[2018-04-05] MEDS: DOCUSATE 100 MG CAP PO SCH (21:43)
[2018-04-05] MEDS: diphenhydrAMINE 25 MG CAP PO PRN (21:44)
[2018-04-06] MEDS: traMADol 50 MG TAB PO SCH ×5 (02:03→21:27)
[2018-04-06] MEDS: diphenhydrAMINE 25 MG CAP PO PRN (05:45)
[2018-04-06] MEDS: HYDROcodone/APAP 5-325MG 1 EACH TAB PO PRN (05:45)
[2018-04-06 07:46] LABS: INR 1.6 (<1.2)
[2018-04-06 07:48] LABS: ALT 426 U/L (9-52); AST 396 U/L (14-36); Albumin 3.1 g/dL (3.5-5.0); Alkaline Phosphatase 357 U/L (38-126); Anion Gap 8 mmol/L; Basophils % (A) 1 %; Blood Urea Nitrogen 10 mg/dL (7-17); Carbon Dioxide 25 mmol/L (22-30); Chloride 102 mmol/L (98-107); Eosinophils # (A) 0.1 k/uL (0-0.7); Eosinophils % (A) 2 %; Glucose 108 mg/dL (74-99); HCT 43.8 % (34.0-46.0); Lymphocytes # (A) 0.5 k/uL (1.0-4.8); Lymphocytes % (A) 13 %; MCH 30.7 pg (25.0-35.0); MCHC 31.9 g/dL (31.0-37.0); MCV 96.4 fL (80.0-100.0); Mean Platelet Volume 7.4; Monocytes # (A) 0.4 k/uL (0-1.0); Monocytes % (A) 9 %; Neutrophils # (A) 2.9 k/uL (1.3-7.7); Neutrophils % (A) 73 %; Platelet Count 173 k/uL (150-450); Potassium 3.4 mmol/L (3.5-5.1); RBC 4.55 m/uL (3.80-5.40); RDW 13.7 % (11.5-15.5); Sodium 135 mmol/L (137-145); Total Bilirubin 6.2 mg/dL (0.2-1.3); Total Protein 5.2 g/dL (6.3-8.2)
[2018-04-06] MEDS: DILTIAZEM CD 240 MG CAP.ER.24H PO SCH (09:58)
[2018-04-06] MEDS: METOPROLOL TARTRATE 25 MG TAB PO SCH ×2 (09:58→20:11)
[2018-04-06] MEDS: ISOSORBIDE MONONITRATE ER 30 MG TAB.ER.24H PO SCH (09:59)
[2018-04-06 11:49] VITALS: BMI 30.5
--- NOTE | 2018-04-06 11:52 | P.PN ---
Subjective Progress Note Date: 04/06/18 This is a 83-year-old female with a known past medical history of atrial fibrillation in which she is on Coumadin, CVA, hyperlipidemia, hypertension, PE and DVT status post Francine filter, history of colon cancer status post resection and chemo. Patient presented to the emergency room after a fall. Apparently she was trying to walk into the bank and which she tripped and fell backwards hitting her back and the back of her head. She denies any loss of consciousness. She was brought into the emergency room for further evaluation and treatment. Patient was able to ambulate with assistance after the fall. Patient had an x-ray and computed tomography scan of the lumbar spine showing a new acute comminuted minimally displaced fracture involving anterior and superior endplates of L2 vertebra. Patient seen by orthopedics. They're not planning any surgical intervention. They are recommending a back brace. Computed tomography scan of the brain and neck were negative. No evidence of any hemorrhage. Computed tomography scan of the pelvis was negative for any fracture. Patient is currently lying in bed comfortably no pain reported. She only has pain with movement. She denies any chest pain shortness of breath nausea vomiting bowel movement changes or urinary symptoms. Denies any fever chills or sweats. On admission INR was 1.1 did go up to 1.4. She was found to have elevated liver enzymes AST 132 ALT 231 and alk phos 159. Lipitor was discontinued. Patient also denies any numbness or tingling in the legs or feet. Patient denies any headaches, dizziness or vision changes 04/01/2018 patient is not complaining of any back pain. Has back brace in place. Orthopedics have signed off. Patient still having elevated liver enzymes does complain of some epigastric and right upper cardiac abdominal tenderness. It was brought to her attention that patient does have a history of pancreatic cancer. And apparently she follows a physician in [place]. Liver ultrasound completed showing likely worsening moderate intrahepatic and extrahepatic biliary dilation due to obstructing pancreatic head mass or neoplasm as enlarging common bile duct is noted and intrahepatic duct dilation is redemonstrated felt more prominent when comparing with prior MRI 04/02/2018 patient is alert and oriented 3 in no apparent distress she is complaining of some back pain otherwise no complaints, there is no fever or chills no headache or dizziness no chest pain no shortness of breath no cough no nausea or vomiting no abdominal pain no diarrhea no burning with urination no frequency or urgency and no hematuria. On 04/03/2018, patient is alert and oriented 3 in no apparent distress, she is complaining of mild back pain, she is complaining of constipation otherwise she denies any complaints, at this time total bilirubin is up to 1.8, AST is up to 378, ALT up to 311 and alkaline phosphatase up to 304. Patient was seen by gastroenterology, and they are waiting for records from oncology and from [facility] to decide in regard to further treatment steps. At this time and INR is elevated at 3.0, will hold Coumadin today and monitor INR in a.m.. 04/04/2018 patient lying in bed comfortably. Denies any back pain or stomach pain. Patient's liver enzymes are worsening. Total bili has gone up from 1.8- 2.3. AST 378-500, ALT 311-407, alk phos 304-307. Awaiting reports from [facility] 04/05/2018 patient's INR is down to 1.9. ERCP with stent scheduled for tomorrow. Patient denies any stomach or back pain. Total bili 4.3 AST 432 and ALT 436. Patient complaining of constipation. On 04/06/2018 patient is planning for ERCP with stent for today. Patient is currently resting comfortably in chair awaiting procedure. AST 396, ALT 426, total bilirubin 6.2. No complaints of chest pain or shortness of breath at this time. Objective - Vital Signs Vital signs: Vital Signs Temp 97.8 F 04/06/18 07:00 Pulse 86 04/06/18 07:00 Resp 16 04/06/18 07:00 BP 130/62 04/06/18 07:00 Pulse Ox 95 04/06/18 07:00 Intake & Output 04/05/18 04/06/18 04/06/18 18:59 06:59 18:59 Intake Total 535 Balance 535 Intake: Oral 535 Other: Voiding Method Diaper Diaper Diaper # Voids 2 1 - Exam Head normocephalic Head Normocephalic. Scleral icterus jaundice Neck supple Lungs clear to auscultation bilaterally no wheezing or crackles Heart regular rate and rhythm S1-S2, no rub or gallop Abdomen is soft nontender nondistended positive bowel sounds no hepatosplenomegaly Extremities no edema. no edema patient has excoriation and scabbing markings on her hands. Back brace remains in place. Neuro alert and orientated to 3 - Labs CBC & Chem 7: 04/06/18 06:56 04/06/18 06:56 Labs: Abnormal Lab Results - Last 24 Hours (Table) 04/06/18 04/06/18 04/06/18 Range/Units 06:56 06:56 06:56 Lymphocytes # 0.5 L (1.0-4.8) k/uL PT 15.0 H (9.0-12.0) sec INR 1.6 H (<1.2) Sodium 135 L (137-145) mmol/L Potassium 3.4 L (3.5-5.1) mmol/L Glucose 108 H (74-99) mg/dL Total Bilirubin 6.2 H (0.2-1.3) mg/dL AST 396 H (14-36) U/L ALT 426 H (9-52) U/L Alkaline Phosphatase 357 H (38-126) U/L Total Protein 5.2 L (6.3-8.2) g/dL Albumin 3.1 L (3.5-5.0) g/dL Assessment and Plan Assessment: 1. Fall with new acute comminuted minimally displaced fracture involving anterior and superior endplates of L2 vertebra: Patient has back brace. Pain controlled. Continue with physical therapy. 2. Fall with minor head injury. No loss of consciousness. Computed tomography scan of the brain negative for any bleed. 3. History of pancreatic cancer: Elevated LFTs and mild jaundice secondary to biliary obstruction from pancreatic mass which was diagnosed 2 months ago. She has been followed by GI and oncology services. Patient scheduled for ERCP evaluation today 4. History of chronic atrial fibrillation: 1.9 after vitamin K. Readdress anticoagulation today after procedure. Today prior to procedure INR 1. 5. History of bilateral PE and left lower extremity DVT diagnosed in July 2017. Patient does have a [place] filter. Continue monitor PT/INR 6. History of CVA 7. Hyperlipidemia 8. Essential hypertension 9. History of colon cancer in 1997: Status post colon resection and chemotherapy 10. 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 Hypotension: Blood pressure had been in the 90s systolic. Repeat blood pressure 121/70. Decrease metoprolol to 25 mg twice a day and will continue with her Cardizem 240 daily. Parameters have been placed on hold for systolic blood pressure less than 110. Blood pressures are stable 12. Skin rash, nursing staff were worried about the possibility of scabies, patient was given treatment during this admission. But also rash could be related to jaundice GI prophylaxis Pepcid and DVT prophylaxis Lovenox Patient will be discharged to [facility] when medically stable I performed an examination of the patient and discussed their management with the Nurse Practitioner. I have reviewed the Nurse Practitioner's notes and agree with the documented findings and plan of care
[2018-04-06] MEDS ORDERED: INDOMETHACIN 50MG SUPPOSITORY RECTAL ONE (12:00)
[2018-04-06] MEDS ORDERED: KETAMINE 10 MG/ML 20 ML VIAL ONE (12:00)
[2018-04-06] MEDS ORDERED: LEVOFLOXACIN 500MG-D5W PMX 500 MG in DEXTROSE/WATER 1 100ML.BAG IVPB ONE (12:00)
[2018-04-06] MEDS ORDERED: PROPOFOL 10 MG/ML 20 ML VIAL IV ONE (12:00)
[2018-04-06] MEDS ORDERED: IOPAMIDOL-300 50ML BTL MISCELLANE ONE (12:28)
--- NOTE | 2018-04-06 12:31 | P.PCN ---
Date of Procedure: 04/06/18 Procedure(s) Performed: Brief history: Patient is a 83 year-old pleasant lady scheduled for an ERCP as part of evaluation of obstructive jaundice. She was recently diagnosed with pancreatic adenocarcinoma 1 month ago when she was noted to have pancreatic mass on CT of the abdomen and pelvis in January 2018. She was hospitalized for an L2 fracture and during this hospitalization started having elevated LFTs and jaundice and hence scheduled for an ERCP for biliary drainage. Procedure performed: ERCP with CBD stent placement Preoperative diagnoses: History of pancreatic adenocarcinoma diagnosed a month ago now with obstructive jaundice IV sedation per anesthesia: Procedure: After informed consent was obtained from the patient and after the risks benefits and complications including bleeding perforation and pancreatitis explained in detail the patient was brought into the endoscopy unit. The patient was placed in prone position and IV conscious sedation was administered by anesthesia under continuous monitoring. The Olympus side-viewing duodenoscope was then inserted into the mouth and esophagus intubated without any difficulty. The scope was gradually advanced into the stomach and duodenum. The major papilla was identified without any difficulty. Initial cannulation resulted in opacification of the common bile duct using a guidewire technique. The common bile duct was significantly dilated with a distal irregular stricture measuring 4 cm in length. At this time I proceeded with a 7 -[place] 7 cm pigtail stent which was placed in the proximal CBD without any difficulty and the patient tolerated the procedure well. The pancreatic duct was intentionally not cannulated during the entire procedure. 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 Recommendations: The findings of this examination were discussed with the patient as well as a family. She'll be started on a regular diet. She can be discharged home tomorrow. Coumadin can be resumed tonight.
[2018-04-06] MEDS ORDERED: SODIUM CHLORIDE 0.9% 700 ML IV ONE (12:37)
--- NOTE | 2018-04-06 12:48 | FL ---
EXAMINATION TYPE: FL ERCP HISTORY: Fluoroscopy time Impression: 1. Fluoroscopy support provided to the referring physician. 2 minutes and 15 seconds of fluoroscopy p rovided.
[2018-04-06] MEDS: POTASSIUM CHLORIDE 10 MEQ in WATER FOR INJECTION 1 100ML.BAG IVPB SCH ×2 (12:55→15:14)
[2018-04-06] MEDS: FAMOTIDINE 20 MG TAB PO SCH (15:44)
[2018-04-06] MEDS: CALCIUM CARB-VIT D 500MG-200UN 1 EACH TAB PO SCH (15:44)
[2018-04-06] MEDS: DOCUSATE 100 MG CAP PO SCH ×2 (15:44→20:11)
[2018-04-06] MEDS: NON-FORMULARY DRUG (Mirabegron [Myrbetriq] 50 MG) PO SCH (15:44)
[2018-04-07 07:13] LABS: Basophils % (A) 0 %; Eosinophils # (A) 0.1 k/uL (0-0.7); Eosinophils % (A) 1 %; HCT 42.4 % (34.0-46.0); Lymphocytes # (A) 0.4 k/uL (1.0-4.8); Lymphocytes % (A) 8 %; Mean Platelet Volume 6.9; Monocytes # (A) 0.3 k/uL (0-1.0); Monocytes % (A) 7 %; Neutrophils # (A) 4.1 k/uL (1.3-7.7); Neutrophils % (A) 82 %; Platelet Count 153 k/uL (150-450); RBC 4.38 m/uL (3.80-5.40); RDW 13.7 % (11.5-15.5)
[2018-04-07 07:24] LABS: INR 1.9 (<1.2); Prothrombin Time 17.1 sec (9.0-12.0)
[2018-04-07 08:00] LABS: ALT 319 U/L (9-52); AST 172 U/L (14-36); Albumin 2.9 g/dL (3.5-5.0); Alkaline Phosphatase 297 U/L (38-126); Anion Gap 7 mmol/L; Blood Urea Nitrogen 12 mg/dL (7-17); Calcium 8.7 mg/dL (8.4-10.2); Carbon Dioxide 25 mmol/L (22-30); Chloride 103 mmol/L (98-107); Glucose 113 mg/dL (74-99); Sodium 135 mmol/L (137-145); Total Bilirubin 1.7 mg/dL (0.2-1.3); Total Protein 5.1 g/dL (6.3-8.2)
[2018-04-07 08:22] LABS: Potassium 4.1 mmol/L (3.5-5.1)
[2018-04-07] MEDS: NON-FORMULARY DRUG (Mirabegron [Myrbetriq] 50 MG) PO SCH (09:37)
[2018-04-07] MEDS: traMADol 50 MG TAB PO SCH ×4 (09:39→20:25)
[2018-04-07] MEDS: FAMOTIDINE 20 MG TAB PO SCH (09:39)
[2018-04-07] MEDS: ISOSORBIDE MONONITRATE ER 30 MG TAB.ER.24H PO SCH (09:39)
[2018-04-07] MEDS: DILTIAZEM CD 240 MG CAP.ER.24H PO SCH (09:40)
[2018-04-07] MEDS: CALCIUM CARB-VIT D 500MG-200UN 1 EACH TAB PO SCH (09:40)
[2018-04-07] MEDS: METOPROLOL TARTRATE 25 MG TAB PO SCH ×2 (09:40→20:25)
[2018-04-07] MEDS: DOCUSATE 100 MG CAP PO SCH ×2 (09:40→20:25)
--- NOTE | 2018-04-07 13:18 | P.DS ---
Providers Date of admission: 03/30/18 15:00 Expected date of discharge: 04/07/18 Attending physician: Michelle Ponce Consults: 03/30/18 15:00 Consult Physician Routine Consulting Provider: Jasbir Bah Consult Reason/Comments: L2 fracture, intractable pain Do you want consulting provider notified?: Yes 03/31/18 12:43 Consult Physician Routine Consulting Provider: Addi Springer Consult Reason/Comments: inpatient rehab Do you want consulting provider notified?: Yes 04/01/18 10:57 Consult Physician Routine Consulting Provider: Yael Johnson Consult Reason/Comments: Pancreatic mass and dilated hepatic ducts Do you want consulting provider notified?: Yes 04/02/18 11:45 Consult Physician Routine Consulting Provider: Andrew Serna Consult Reason/Comments: Pancreatic mass Do you want consulting provider notified?: Yes Primary care physician: Dina Sotomayor Hospital Course: Discharge diagnosis 1. Fall with new acute comminuted minimally displaced fracture involving anterior and superior endplates of L2 vertebra: Patient has back brace. Pain controlled. Continue with physical therapy. 2. Fall with minor head injury. No loss of consciousness. Computed tomography scan of the brain negative for any bleed. 3. History of pancreatic cancer: Elevated LFTs and mild jaundice secondary to biliary obstruction from pancreatic mass which was diagnosed 2 months ago. Patient status post ERCP with stent placement 4. History of chronic atrial fibrillation: INR 1.9 at discharge. Blood and resumed. 5. History of bilateral PE and left lower extremity DVT diagnosed in July 2017. Patient does have a [place] filter. Continue monitor PT/INR 6. History of CVA 7. Hyperlipidemia 8. Essential hypertension 9. History of colon cancer in 1997: Status post colon resection and chemotherapy 10. 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 Hypotension likely related to a pressure and pain medications: Resolved. Patient restarted on her home dose of metoprolol. Continue with the Cardizem 12. Skin rash, nursing staff were worried about the possibility of scabies, patient was given treatment during this admission. But also rash could be related to jaundice Hospital course This is a 83-year-old female with a known past medical history of atrial fibrillation in which she is on Coumadin, CVA, hyperlipidemia, hypertension, PE and DVT status post [place] filter, history of colon cancer status post resection and chemo. Patient presented to the emergency room after a fall. Apparently she was trying to walk into the bank and which she tripped and fell backwards hitting her back and the back of her head. She denies any loss of consciousness. She was brought into the emergency room for further evaluation and treatment. Patient was able to ambulate with assistance after the fall. Patient had an x-ray and computed tomography scan of the lumbar spine showing a new acute comminuted minimally displaced fracture involving anterior and superior endplates of L2 vertebra. Patient seen by orthopedics. They're not planning any surgical intervention. They are recommending a back brace. Computed tomography scan of the brain and neck were negative. No evidence of any hemorrhage. Computed tomography scan of the pelvis was negative for any fracture. Patient is currently lying in bed comfortably no pain reported. She only has pain with movement. She denies any chest pain shortness of breath nausea vomiting bowel movement changes or urinary symptoms. Denies any fever chills or sweats. On admission INR was 1.1 did go up to 1.4. She was found to have elevated liver enzymes AST 132 ALT 231 and alk phos 159. Lipitor was discontinued. Patient also denies any numbness or tingling in the legs or feet. Patient denies any headaches, dizziness or vision changes 04/01/2018 patient is not complaining of any back pain. Has back brace in place. Orthopedics have signed off. Patient still having elevated liver enzymes does complain of some epigastric and right upper cardiac abdominal tenderness. It was brought to her attention that patient does have a history of pancreatic cancer. And apparently she follows a physician in [place]. Liver ultrasound completed showing likely worsening moderate intrahepatic and extrahepatic biliary dilation due to obstructing pancreatic head mass or neoplasm as enlarging common bile duct is noted and intrahepatic duct dilation is redemonstrated felt more prominent when comparing with prior MRI 04/02/2018 patient is alert and oriented 3 in no apparent distress she is complaining of some back pain otherwise no complaints, there is no fever or chills no headache or dizziness no chest pain no shortness of breath no cough no nausea or vomiting no abdominal pain no diarrhea no burning with urination no frequency or urgency and no hematuria. On 04/03/2018, patient is alert and oriented 3 in no apparent distress, she is complaining of mild back pain, she is complaining of constipation otherwise she denies any complaints, at this time total bilirubin is up to 1.8, AST is up to 378, ALT up to 311 and alkaline phosphatase up to 304. Patient was seen by gastroenterology, and they are waiting for records from oncology and from [facility] to decide in regard to further treatment steps. At this time and INR is elevated at 3.0, will hold Coumadin today and monitor INR in a.m.. 04/04/2018 patient lying in bed comfortably. Denies any back pain or stomach pain. Patient's liver enzymes are worsening. Total bili has gone up from 1.8- 2.3. AST 378-500, ALT 311-407, alk phos 304-307. Awaiting reports from [facility] 04/05/2018 patient's INR is down to 1.9. ERCP with stent scheduled for tomorrow. Patient denies any stomach or back pain. Total bili 4.3 AST 432 and ALT 436. Patient complaining of constipation. On 04/06/2018 patient is planning for ERCP with stent for today. Patient is currently resting comfortably in chair awaiting procedure. AST 396, ALT 426, total bilirubin 6.2. No complaints of chest pain or shortness of breath at this time. Patient underwent ERCP with stent placement. Per GI service, they noted a dilated proximal common bile duct with a 4 cm distal irregular stricture status post common bile duct stent placement. Patient denies any abdominal pain. Her LFTs and total bilirubin are trending down. Total bili 1.7 AST 172 ALT 319 and alk phos 297 at discharge. Labs are all showing improvement. Patient is tolerating diet. GI service has cleared her for discharge. She'll follow up with GI service in 4 weeks. Also during this admission she had a back fracture seen by orthopedics has back brace. They have cleared her for discharge. Pain is controlled with Ultram. Patient is medical stable for discharge. She'll be discharged to [facility] for further rehabilitation Patient will be followed by Dr. Ponce at [facility] I performed an examination of the patient and discussed their management with the physician Mount Loader. I have reviewed the Physician Mount Loader's notes and agree with the documented findings and plan of care Patient Condition at Discharge: Stable Plan - Discharge Summary Discharge Rx Participant: No New Discharge Prescriptions: New Docusate [Colace] 100 mg PO BID cap traMADol HCl [Ultram] 50 mg PO TID PRN #9 tab PRN Reason: Pain Continue Isosorbide Mononitrate ER [Imdur] 30 mg PO DAILY Metoprolol Tartrate [Lopressor] 50 mg PO BID Mirabegron [Myrbetriq] 50 mg PO DAILY Nitroglycerin Sl Tabs [Nitrostat] 0.4 mg SUBLINGUAL DAILY PRN PRN Reason: Angina Warfarin [Coumadin] 5 mg PO DAILY@1800 tab Calcium Carbonate/Vitamin D3 [Calcium 600-Vit D3 200 Tablet] 1 tab PO DAILY Diltiazem HCl [Cartia Xt] 240 mg PO DAILY Ergocalciferol [Vitamin D2 (DRISDOL)] 50,000 unit PO Q14D Discontinued Simvastatin [Zocor] 40 mg PO HS Discharge Medication List Isosorbide Mononitrate ER [Imdur] 30 mg PO DAILY 02/13/15 [History] Metoprolol Tartrate [Lopressor] 50 mg PO BID 02/13/15 [History] Mirabegron [Myrbetriq] 50 mg PO DAILY 02/13/15 [History] Nitroglycerin Sl Tabs [Nitrostat] 0.4 mg SUBLINGUAL DAILY PRN 02/13/15 [History] Warfarin [Coumadin] 5 mg PO DAILY@1800 tab 08/06/17 [Rx] Calcium Carbonate/Vitamin D3 [Calcium 600-Vit D3 200 Tablet] 1 tab PO DAILY [History] Diltiazem HCl [Cartia Xt] 240 mg PO DAILY 03/30/18 [History] Ergocalciferol [Vitamin D2 (DRISDOL)] 50,000 unit PO Q14D 03/30/18 [History] Docusate [Colace] 100 mg PO BID cap 04/07/18 [Rx] traMADol HCl [Ultram] 50 mg PO TID PRN #9 tab 04/07/18 [Rx] Follow up Appointment(s)/Referral(s): Yael Johnson MD [STAFF PHYSICIAN] - 4 Weeks Dina Sotomayor DO [Primary Care Provider] - 1 Week Ambulatory/Diagnostic Orders: Comprehensive Metabolic Panel [LAB.AMB] Time Frame: 1 Week, Location: None Selected Prothrombin Time INR [LAB.AMB] Time Frame: 1 Week, Location: None Selected Activity/Diet/Wound Care/Special Instructions: Diet: regular Activity: as tolerated Patient is medically stable for discharge to [facility]. Dr. Ponce to follow at [facility] Discharge Disposition: TRANSFER TO SNF/ECF
--- NOTE | 2018-04-07 17:33 | P.PN ---
Progress Note - Text Progress Note Date: 04/07/18 Pt not seen. From Hem/Onc standpoint there are no plans at this time for chemo or radiation. Pt PS is poor and she is going to rehab 1st. Pt requires a Surgical Consult then follow up with medical Oncology after rehab before any treatment plans can be made.
[2018-04-07] MEDS ORDERED: MORPHINE ORAL SOLN 10 MG/5 ML CUP PO PRN (18:19)
[2018-04-08 07:10] LABS: Basophils % (A) 1 %; Eosinophils # (A) 0.1 k/uL (0-0.7); Eosinophils % (A) 3 %; HCT 42.3 % (34.0-46.0); HGB 13.6 gm/dL (11.4-16.0); Lymphocytes # (A) 0.5 k/uL (1.0-4.8); Lymphocytes % (A) 11 %; MCH 31.1 pg (25.0-35.0); MCHC 32.3 g/dL (31.0-37.0); MCV 96.5 fL (80.0-100.0); Monocytes # (A) 0.4 k/uL (0-1.0); Monocytes % (A) 9 %; Neutrophils # (A) 3.3 k/uL (1.3-7.7); Neutrophils % (A) 75 %; Platelet Count 168 k/uL (150-450); RBC 4.38 m/uL (3.80-5.40); RDW 13.5 % (11.5-15.5); WBC 4.4 k/uL (3.8-10.6)
[2018-04-08 07:18] LABS: INR 1.5 (<1.2); Prothrombin Time 14.1 sec (9.0-12.0)
[2018-04-08 07:34] LABS: ALT 235 U/L (9-52); AST 84 U/L (14-36); Albumin 2.8 g/dL (3.5-5.0); Alkaline Phosphatase 262 U/L (38-126); Anion Gap 6 mmol/L; Blood Urea Nitrogen 10 mg/dL (7-17); Calcium 9.1 mg/dL (8.4-10.2); Carbon Dioxide 28 mmol/L (22-30); Chloride 101 mmol/L (98-107); Glucose 122 mg/dL (74-99); Potassium 3.8 mmol/L (3.5-5.1); Sodium 135 mmol/L (137-145); Total Bilirubin 1.3 mg/dL (0.2-1.3)
[2018-04-08 07:36] VITALS: BP 146/82; PULSE 74; RESP 12; TEMP 98.2
[2018-04-08] MEDS: ISOSORBIDE MONONITRATE ER 30 MG TAB.ER.24H PO SCH (09:28)
[2018-04-08] MEDS: traMADol 50 MG TAB PO SCH (09:28)
[2018-04-08] MEDS: METOPROLOL TARTRATE 25 MG TAB PO SCH (09:28)
[2018-04-08] MEDS: FAMOTIDINE 20 MG TAB PO SCH (09:28)
[2018-04-08] MEDS: DILTIAZEM CD 240 MG CAP.ER.24H PO SCH (09:28)
[2018-04-08] MEDS: CALCIUM CARB-VIT D 500MG-200UN 1 EACH TAB PO SCH (09:29)
[2018-04-08] MEDS: DOCUSATE 100 MG CAP PO SCH (09:29)
[2018-04-08] MEDS: NON-FORMULARY DRUG (Mirabegron [Myrbetriq] 50 MG) PO SCH (09:30)
[2018-04-08] MEDS: HYDROcodone/APAP 5-325MG 1 EACH TAB PO PRN (11:13)
[2018-04-08] MEDS ORDERED: WARFARIN 5 MG TAB PO ONE (18:00)
== END 2018-04-08 11:33 | DRG 542 ==
LOC: EC 11:46 → 3SUR 15:00
PROVIDERS: ADMIT Internal Medicine; ATTEND Internal Medicine
PROC: 0F798DZ Dilation of Common Bile Duct with Intraluminal Device, Via Natural or Artificial Opening Endoscopic (ICD-10-PCS; principal; 2018-04-06 13:50)
DX: M48.56XA Collapsed vertebra, not elsewhere classified, lumbar region, initial encounter for fracture (principal); K83.1 Obstruction of bile duct; C25.0 Malignant neoplasm of head of pancreas; E78.00 Pure hypercholesterolemia, unspecified; E78.5 Hyperlipidemia, unspecified; F03.90 Unspecified dementia, unspecified severity, without behavioral disturbance, psychotic disturbance, mood disturbance, and anxiety; I10 Essential (primary) hypertension; I48.2 Chronic atrial fibrillation; K21.9 Gastro-esophageal reflux disease without esophagitis; K59.00 Constipation, unspecified; M19.90 Unspecified osteoarthritis, unspecified site; R79.1 Abnormal coagulation profile; T45.515A Adverse effect of anticoagulants, initial encounter; W01.0XXA Fall on same level from slipping, tripping and stumbling without subsequent striking against object, initial encounter; Y93.01 Activity, walking, marching and hiking; Z79.01 Long term (current) use of anticoagulants; Z79.899 Other long term (current) drug therapy; Z80.0 Family history of malignant neoplasm of digestive organs; Z80.3 Family history of malignant neoplasm of breast; Z82.49 Family history of ischemic heart disease and other diseases of the circulatory system; Z85.038 Personal history of other malignant neoplasm of large intestine; Z86.711 Personal history of pulmonary embolism; Z86.718 Personal history of other venous thrombosis and embolism; Z86.73 Personal history of transient ischemic attack (TIA), and cerebral infarction without residual deficits; Z87.891 Personal history of nicotine dependence; Z90.49 Acquired absence of other specified parts of digestive tract; Z90.710 Acquired absence of both cervix and uterus; Z92.21 Personal history of antineoplastic chemotherapy; Z88.6 Allergy status to analgesic agent; Z88.0 Allergy status to penicillin; Z88.2 Allergy status to sulfonamides; R40.2142 Coma scale, eyes open, spontaneous, at arrival to emergency department; R40.2362 Coma scale, best motor response, obeys commands, at arrival to emergency department; R40.2252 Coma scale, best verbal response, oriented, at arrival to emergency department; I95.9 Hypotension, unspecified
CPT/HCPCS: 36415; 43274; 70450; 71046; 72100; 72125; 72131; 72170; 72192; 74330; 76705; 80053; 82150; 83690; 83735; 85025; 85610; 96372; 99285

== ENCOUNTER → 2018-05-03 | Outpatient (CLI) | payer MEDICARE, OTHER ==
--- NOTE | 2018-05-04 09:18 | MM ---
Reason for exam: additional evaluation requested from prior study. Last mammogram was performed 1 year and 1 month ago. History: Patient is postmenopausal, has history of colon cancer at age 61, and history of other cancer. Family history of breast cancer in daughter at age 55. Benign excisional biopsy of the left breast. Physical Findings: Nurse did not find any significant physical abnormalities on exam. MG 3D Diag Mammo W/Cad REBA Bilateral CC and MLO view(s) were taken. Technologist: RT Nikhil (R)(M) Prior study comparison: March 25, 2017, bilateral MG 3d screening mammo w/cad. May 24, 2012, bilateral digital screening mammo w/CAD. There are scattered fibroglandular densities. Asymmetric breast tissue right medial lower breat 5cm from nipple. This finding is changed when compared with previous exams. These results were verbally communicated with the patient and result sheet given to the patient on 05/03/18. ASSESSMENT: Incomplete: need additional imaging evaluation, BI-RAD 0 RECOMMENDATION: Ultrasound of the right breast.
--- NOTE | 2018-05-04 09:20 | USB ---
Reason for exam: additional evaluation requested from abnormal screening. History: Patient is postmenopausal, has history of colon cancer at age 61, and history of other cancer. Family history of breast cancer in daughter at age 55. Benign excisional biopsy of the left breast. US Breast Limited RT Right limited breast ultrasound including focal area of concern, retroareolar and axilla demonstrates a 1.6 x 1.3 x 1.7cm solid, vascular lesion at 3 o'clock and axilla nodes. These results were verbally communicated with the patient and result sheet given to the patient on 05/03/18. ASSESSMENT: Suspicious, BI-RAD 4 RECOMMENDATION: Surgical consultation of the right breast. Called Dr. Serna with mammographic findings. PRELIMINARY REPORT CALLED AND FAXED TO DR. SERNA ON 05/04/18.
== END | disposition home or self-care (01) ==
LOC: RADMAMWWP 13:45
PROVIDERS: ATTEND Internal Medicine Hematology & Oncology
DX: N63.0 Unspecified lump in unspecified breast (principal); R92.8 Other abnormal and inconclusive findings on diagnostic imaging of breast
CPT/HCPCS: 77066; 76642; G0279; 77062

== ENCOUNTER → 2018-05-06 | Outpatient (CLI) | payer MEDICARE, OTHER ==
--- NOTE | 2018-05-06 12:43 | FL ---
EXAMINATION TYPE: FL barium swallow w video DATE OF EXAM: 05/06/2018 MODIFIED SWALLOW / DEGLUTITION STUDY CLINICAL HISTORY: Dysphagia. TECHNIQUE: Deglutition study is performed utilizing thin liquid barium and barium thick applesauce o nly. Patient refused additional modalities. A total of 1 minute 5 seconds of fluoroscopic time was ut ilized during procedure. 0 spot images are saved to PACS. COMPARISON: None. FINDINGS: The oral and pharyngeal phases show satisfactory initiation and propagation with all modali ties tested. There is no evidence of penetration or aspiration with any modality tested. No signific ant pharyngeal residue was appreciated. IMPRESSION: No penetration or aspiration observed. Please refer to speech therapist notes for further details if necessary.
== END | disposition home or self-care (01) ==
LOC: RADFLMAIN 11:30
PROVIDERS: ATTEND Internal Medicine Gastroenterology
DX: R13.10 Dysphagia, unspecified (principal)
CPT/HCPCS: 74230

== ENCOUNTER → 2018-05-09 | Outpatient (CLI) | payer MEDICARE, OTHER ==
--- NOTE | 2018-05-09 13:40 | FL ---
EXAMINATION TYPE: FL esophagus cervic/pharynx DATE OF EXAM: 05/09/2018 HISTORY: 83-year-old female remote stroke, reports trouble swallowing with food and drink sticking in the esophagus. Patient taking only puree consistency. History of old stroke 30 years ago. Current hi story of pancreatic cancer. COMPARISON: Correlation CT cervical spine 03/30/2018 and dynamic swallow study 05/06/2018 TECHNIQUE: A double contrast esophagram is performed utilizing air and thick barium. Total fluoroscopy time: 2.27 minutes. Total images: 44. FINDINGS: There is slightly distorted appearance to the posterior oropharynx and hypopharynx with some soft tis katty thickening. Suspect positional change and underlying lingual tonsillar hypertrophy when correlati ng to the patient's recent CT cervical spine. There is mild silent aspiration with the initial swallow. Subsequent swallows did not show additional episodes of aspiration. The esophagus shows normal course, caliber, mucosa with appropriate emptying into the stomach. Limite d assessment of motility as prone imaging with thin barium was not utilized due to patient's risk of aspiration. There is a tiny sliding hiatal hernia. IMPRESSION: 1. Slightly distorted and thickened appearance to the posterior oropharynx and hypopharynx likely pos itional. Some lingual tonsillar hypertrophy is also noted on the patient's recent CT cervical spine. No mass is appreciated when correlating with the recent CT. 2. Mild silent aspiration at the initial swallow. 3. Tiny sliding hiatal hernia. The esophagus shows no mucosal abnormality or stricture.
== END | disposition home or self-care (01) ==
LOC: RADFLMAIN 10:55
PROVIDERS: ATTEND Internal Medicine Gastroenterology
DX: K44.9 Diaphragmatic hernia without obstruction or gangrene (principal); J35.1 Hypertrophy of tonsils; J39.2 Other diseases of pharynx
CPT/HCPCS: 74210

== ENCOUNTER 2018-06-03 16:35 | Inpatient (IN) | payer MEDICARE, OTHER ==
[2018-06-03] MEDS ORDERED: SODIUM CHLORIDE 0.9% 1,000 ML IV STA (17:12)
[2018-06-03] MEDS ORDERED: PANTOPRAZOLE 40 MG/10 ML VIAL IVP STA (17:12)
[2018-06-03] MEDS ORDERED: ONDANSETRON 4 MG/2 ML VIAL IVP STA (17:12)
[2018-06-03] MEDS ORDERED: MORPHINE SULFATE 4 MG/ML SYRINGE IV STA (17:12)
[2018-06-03 17:43] LABS: Basophils % (A) 0 %; Eosinophils % (A) 1 %; HCT 48.6 % (34.0-46.0); HGB 16.2 gm/dL (11.4-16.0); Lymphocytes # (A) 0.3 k/uL (1.0-4.8); Lymphocytes % (A) 3 %; MCH 32.6 pg (25.0-35.0); MCHC 33.4 g/dL (31.0-37.0); MCV 97.6 fL (80.0-100.0); Mean Platelet Volume 7.7; Monocytes # (A) 0.3 k/uL (0-1.0); Monocytes % (A) 3 %; Neutrophils # (A) 8.3 k/uL (1.3-7.7); Neutrophils % (A) 92 %; Platelet Count 218 k/uL (150-450); RBC 4.98 m/uL (3.80-5.40); RDW 13.6 % (11.5-15.5)
[2018-06-03 17:58] LABS: Albumin 3.1 g/dL (3.5-5.0); Calcium 9.1 mg/dL (8.4-10.2); Potassium 4.1 mmol/L (3.5-5.1); Total Bilirubin 0.8 mg/dL (0.2-1.3); Total Protein 5.3 g/dL (6.3-8.2)
--- NOTE | 2018-06-03 18:48 | XR ---
EXAMINATION TYPE: XR abdomen acute w cxr DATE OF EXAM: 06/03/2018 COMPARISON: 12/24/2010 HISTORY: Bowel obstruction abdominal pain TECHNIQUE: Chest x-ray with supine and upright abdomen FINDINGS: There is no heart failure. There is linear density at the left lung base. Heart size is normal. There are multiple gas-filled distended small bowel loops in the mid abdomen. There is large bowel ga s extending down to the rectum. I see no sign of pneumoperitoneum. There is inferior vena cava filter noted. There are chest leads. There are no pathologic calcifications over the kidneys. There is righ t upper quadrant catheter that could be a biliary stent. IMPRESSION: Mild atelectasis at the left lung base is new compared to old exam. Gas pattern is suggestive of smal l bowel ileus. This appears new compared to old exam.
--- NOTE | 2018-06-03 18:58 | ED ---
General Adult HPI - General Chief complaint: Nausea/Vomiting/Diarrhea Stated complaint: Poss Bowel Obstruction Time Seen by Provider: 06/03/18 16:36 Source: family, EMS, RN notes reviewed, old records reviewed Mode of arrival: EMS Limitations: no limitations - History of Present Illness Initial comments: This is a 83-year-old female the ER for evaluation. This patient presents today for evaluation regards toabdominal pain nausea vomiting. Patient does have known history of CVA, patient himself is poor sore history is obtained from family members. Patient has known end-stage CVA, has had significant nausea vomiting all day. Just started today. No fevers. Patient does complain of abdominal pain - Related Data Home Medications Medication Instructions Recorded Confirmed Mirabegron [Myrbetriq] 50 mg PO DAILY 02/13/15 06/03/18 Nitroglycerin Sl Tabs [Nitrostat] 0.4 mg SUBLINGUAL DAILY PRN 02/13/15 06/03/18 Calcium Carbonate/Vitamin D3 1 tab PO DAILY 03/30/18 06/03/18 [Calcium 600-Vit D3 200 Tablet] Diltiazem HCl [Cartia Xt] 240 mg PO DAILY 03/30/18 06/03/18 Docusate [Colace] 100 mg PO BID PRN 06/03/18 06/03/18 Warfarin Sodium 2.5 mg PO SUMOTUFRSA 06/03/18 06/03/18 Warfarin [Coumadin] 5 mg PO WETH 06/03/18 06/03/18 traMADol HCl [Ultram] 50 mg PO Q8H PRN 06/03/18 06/03/18 Allergies Allergy/AdvReac Type Severity Reaction Status Date / Time sertraline [From Zoloft] Allergy Unknown Verified 06/03/18 17:55 Sulfa (Sulfonamide Allergy Itching Verified 06/03/18 17:55 Antibiotics) ibuprofen [From Motrin] AdvReac Diarrhea Verified 06/03/18 17:55 Penicillins AdvReac Itching Verified 06/03/18 17:55 Review of Systems ROS Statement: Those systems with pertinent positive or pertinent negative responses have been documented in the HPI. ROS Other: All systems not noted in ROS Statement are negative. Past Medical History Past Medical History: Atrial Fibrillation, Cancer, CVA/TIA, Deep Vein Thrombosis (DVT), GERD/Reflux, Hyperlipidemia, Hypertension, Osteoarthritis (OA) Additional Past Medical History / Comment(s): leaky heart valve, hernia, hemmorhoids, had spinal menigitis, colon CA, DVT's, FX rib History of Any Multi-Drug Resistant Organisms: None Reported Past Surgical History: Back Surgery, Bowel Resection, Breast Surgery, Section, Hysterectomy, Joint Replacement, Orthopedic Surgery Additional Past Surgical History / Comment(s): colonoscopies, r/l eye implants, tendons repaired R leg and hand,ivc filter Past Anesthesia/Blood Transfusion Reactions: No Reported Reaction Additional Past Anesthesia/Blood Transfusion Reaction / Comment(s): Pt has received blood in the past without reaction. Past Psychological History: No Psychological Hx Reported Smoking Status: Former smoker Past Alcohol Use History: None Reported Past Drug Use History: None Reported - Past Family History Daughter(s) Family Medical History: Cancer Additional Family Medical History / Comment(s): Daughter had breast cancer. Father Family Medical History: Cancer Additional Family Medical History / Comment(s): Father had colon cancer. Mother Family Medical History: Cancer Additional Family Medical History / Comment(s): Mother at the age of 29 yrs from a cerebral hemorrhage. Sister(s) Family Medical History: Deep Vein Thrombosis (DVT) General Exam Limitations: no limitations General appearance: alert, in no apparent distress Head exam: Present: atraumatic, normocephalic, normal inspection Eye exam: Present: normal appearance, PERRL, EOMI. Absent: scleral icterus, conjunctival injection, periorbital swelling ENT exam: Present: normal exam, mucous membranes moist Neck exam: Present: normal inspection. Absent: tenderness, meningismus, lymphadenopathy Respiratory exam: Present: normal lung sounds bilaterally. Absent: respiratory distress, wheezes, rales, rhonchi, stridor Cardiovascular Exam: Present: regular rate, normal rhythm, normal heart sounds. Absent: systolic murmur, diastolic murmur, rubs, gallop, clicks GI/Abdominal exam: Present: soft, tenderness, guarding, normal bowel sounds. Absent: distended, rebound, rigid Extremities exam: Present: normal inspection, full ROM, normal capillary refill. Absent: tenderness, pedal edema, joint swelling, calf tenderness Back exam: Present: normal inspection Neurological exam: Present: alert, oriented X3, CN II-XII intact Psychiatric exam: Present: normal affect, normal mood Skin exam: Present: warm, dry, intact, normal color. Absent: rash Course Vital Signs 06/03/18 06/03/18 06/03/18 16:43 19:23 20:39 Temperature 96 F L Pulse Rate 106 H 103 H 87 Respiratory 22 18 18 Rate Blood Pressure 162/97 109/60 126/68 O2 Sat by Pulse 97 96 97 Oximetry 06/03/18 21:07 Temperature 97.6 F Pulse Rate Respiratory Rate Blood Pressure O2 Sat by Pulse Oximetry - Reevaluation(s) Reevaluation #1: medical record and significant CVA history is reviewed Medical Decision Making - Medical Decision Making 83 female the ER for evaluation, positive abdominal pain nausea vomiting and ileus. We'll admit for IV hydration and symptom management - Lab Data Result diagrams: 06/07/18 07:36 06/07/18 07:36 Lab Results 06/03/18 06/03/18 06/03/18 Range/Units 17:10 17:10 18:50 WBC 9.0 (3.8-10.6) k/uL RBC 4.98 (3.80-5.40) m/uL Hgb 16.2 H (11.4-16.0) gm/dL Hct 48.6 H (34.0-46.0) % MCV 97.6 (80.0-100.0) fL MCH 32.6 (25.0-35.0) pg MCHC 33.4 (31.0-37.0) g/dL RDW 13.6 (11.5-15.5) % Plt Count 218 (150-450) k/uL Neutrophils % 92 % Lymphocytes % 3 % Monocytes % 3 % Eosinophils % 1 % Basophils % 0 % Neutrophils # 8.3 H (1.3-7.7) k/uL Lymphocytes # 0.3 L (1.0-4.8) k/uL Monocytes # 0.3 (0-1.0) k/uL Eosinophils # 0.0 (0-0.7) k/uL Basophils # 0.0 (0-0.2) k/uL Sodium 138 (137-145) mmol/L Potassium 4.1 (3.5-5.1) mmol/L Chloride 101 (98-107) mmol/L Carbon Dioxide 25 (22-30) mmol/L Anion Gap 12 mmol/L BUN 14 (7-17) mg/dL Creatinine 0.73 (0.52-1.04) mg/dL Est GFR (CKD-EPI)AfAm 90 (>60 ml/min/1.73 sqM) Est GFR (CKD-EPI)NonAf 78 (>60 ml/min/1.73 sqM) Glucose 233 H (74-99) mg/dL Calcium 9.1 (8.4-10.2) mg/dL Total Bilirubin 0.8 (0.2-1.3) mg/dL AST 38 H (14-36) U/L ALT 44 (9-52) U/L Alkaline Phosphatase 68 (38-126) U/L Total Protein 5.3 L (6.3-8.2) g/dL Albumin 3.1 L (3.5-5.0) g/dL Amylase 69 (30-110) U/L Lipase 232 (23-300) U/L Urine Color Yellow Urine Appearance Cloudy H (Clear) Urine pH 6.5 (5.0-8.0) Ur Specific [place] 1.014 (1.001-1.035) Urine Protein 1+ H (Negative) Urine Glucose (UA) 2+ H (Negative) Urine Ketones Negative (Negative) Urine Blood Negative (Negative) Urine Nitrite Negative (Negative) Urine Bilirubin Negative (Negative) Urine Urobilinogen <2.0 (<2.0) mg/dL Ur Leukocyte Esterase Large H (Negative) Urine RBC 5 (0-5) /hpf Urine WBC 66 H (0-5) /hpf Ur Squamous Epith Cells 10 H (0-4) /hpf Hyaline Casts 7 H (0-2) /lpf Urine Mucus Rare H (None) /hpf - Radiology Data Radiology results: report reviewed (x-ray of abdominal seriess and chest shows positive ileus), image reviewed Disposition Clinical Impression: Nausea and vomiting, Ileus Disposition: ADMITTED IP TO THIS HOSP Condition: Fair Is patient prescribed a controlled substance at d/c from ED?: No
[2018-06-03 19:03] LABS: Appearance,Urine Cloudy (Clear); Bilirubin,Urine Negative (Negative); Blood,Urine Negative (Negative); Color,Urine Yellow; Glucose,Urine (UA) 2+ (Negative); Hyaline Casts,Urine 7 /lpf (0-2); Ketones,Urine Negative (Negative); Leukocyte Esterase,Urine Large (Negative); Mucus,Urine Rare /hpf; Nitrite,Urine Negative (Negative); PH, Urine 6.5 (5.0-8.0); Protein,Urine 1+ (Negative); RBC,Urine 5 /hpf (0-5); Specific Gravity,Urine 1.014 (1.001-1.035); Squamous Epithelial Cell,Urine 10 /hpf (0-4); Urobilinogen,Urine <2.0 mg/dL (<2.0); WBC,Urine 66 /hpf (0-5)
[2018-06-03] MEDS ORDERED: cefTRIAXone 2,000 MG in SODIUM CHLORIDE 0.9% 100 ML IVPB STA (19:40)
[2018-06-03] MEDS ORDERED: SODIUM CHLORIDE 0.9% 1,000 ML IV ONE (19:42)
[2018-06-03] MEDS ORDERED: ONDANSETRON 4 MG/2 ML VIAL IVP PRN (19:44)
[2018-06-03] MEDS: MORPHINE SULFATE 4 MG/ML SYRINGE IVP PRN (22:59)
[2018-06-04] MEDS: MORPHINE SULFATE 4 MG/ML SYRINGE IVP PRN (05:41)
[2018-06-04] MEDS: PANTOPRAZOLE 40 MG/10 ML VIAL IVP SCH (08:27)
[2018-06-04] MEDS: ENOXAPARIN 40 MG/0.4 ML SYRINGE SQ SCH (08:27)
--- NOTE | 2018-06-04 10:05 | P.GSCN ---
History of Present Illness Consult date: 06/04/18 Reason for Consult: Ileus History of present illness: This is an 83-year-old female known to myself. Patient was admitted through the hospital last night. Her abdominal x-rays were suggestive of possible ileus or small bowel structure. Patient denies any abdominal pain this morning. She's had flatus. Past Medical History Past Medical History: Atrial Fibrillation, Cancer, CVA/TIA, Deep Vein Thrombosis (DVT), GERD/Reflux, Hyperlipidemia, Hypertension, Osteoarthritis (OA) Additional Past Medical History / Comment(s): leaky heart valve, hernia, hemmorhoids, had spinal menigitis, colon CA, DVT's, FX rib History of Any Multi-Drug Resistant Organisms: None Reported Past Surgical History: Back Surgery, Bowel Resection, Breast Surgery, Section, Hysterectomy, Joint Replacement, Orthopedic Surgery Additional Past Surgical History / Comment(s): colonoscopies, r/l eye implants, tendons repaired R leg and hand,ivc filter Past Anesthesia/Blood Transfusion Reactions: No Reported Reaction Additional Past Anesthesia/Blood Transfusion Reaction / Comm: Pt has received blood in the past without reaction. Past Psychological History: No Psychological Hx Reported Additional Psychological History / Comment(s): Pt and her spouse reside with pt' s daughter, Florencia. Pt has a 4 pronged cane and a walker to use. Pt no longer drives, her spouse is able to drive. Pt is otherwise independent. Smoking Status: Former smoker Past Alcohol Use History: None Reported Additional Past Alcohol Use History / Comment(s): Pt started smoking in 9 and quit in 1963. Past Drug Use History: None Reported - Past Family History Daughter(s) Family Medical History: Cancer Additional Family Medical History / Comment(s): Daughter had breast cancer. Father Family Medical History: Cancer Additional Family Medical History / Comment(s): Father had colon cancer. Mother Family Medical History: Cancer Additional Family Medical History / Comment(s): Mother at the age of 29 yrs from a cerebral hemorrhage. Sister(s) Family Medical History: Deep Vein Thrombosis (DVT) Medications and Allergies Home Medications Medication Instructions Recorded Confirmed Type Mirabegron [Myrbetriq] 50 mg PO DAILY 02/13/15 06/03/18 History Nitroglycerin Sl Tabs [Nitrostat] 0.4 mg SUBLINGUAL DAILY PRN 02/13/15 06/03/18 History Calcium Carbonate/Vitamin D3 1 tab PO DAILY 03/30/18 06/03/18 History [Calcium 600-Vit D3 200 Tablet] Diltiazem HCl [Cartia Xt] 240 mg PO DAILY 03/30/18 06/03/18 History Docusate [Colace] 100 mg PO BID PRN 06/03/18 06/03/18 History Warfarin Sodium 2.5 mg PO SUMOTUFRSA 06/03/18 06/03/18 History Warfarin [Coumadin] 5 mg PO WETH 06/03/18 06/03/18 History traMADol HCl [Ultram] 50 mg PO Q8H PRN 06/03/18 06/03/18 History Allergies Allergy/AdvReac Type Severity Reaction Status Date / Time sertraline [From Zoloft] Allergy Unknown Verified 06/03/18 17:55 Sulfa (Sulfonamide Allergy Itching Verified 06/03/18 17:55 Antibiotics) ibuprofen [From Motrin] AdvReac Diarrhea Verified 06/03/18 17:55 Penicillins AdvReac Itching Verified 06/03/18 17:55 Surgical - Exam Vital Signs Temp Pulse Resp BP Pulse Ox 96 F L 106 H 22 162/97 97 06/03/18 16:43 06/03/18 16:43 06/03/18 16:43 06/03/18 16:43 06/03/18 16:43 - General well developed, no distress - Eyes PERRL - ENT normal pinna - Neck no masses - Respiratory normal expansion - Cardiovascular Rhythm: regular - Abdomen Abdomen: soft, non tender Results - Labs 06/03/18 17:10 06/03/18 17:10 Abnormal Lab Results - Last 24 Hours (Table) 06/03/18 06/03/18 06/03/18 Range/Units 17:10 17:10 18:50 Hgb 16.2 H (11.4-16.0) gm/dL Hct 48.6 H (34.0-46.0) % Neutrophils # 8.3 H (1.3-7.7) k/uL Lymphocytes # 0.3 L (1.0-4.8) k/uL Glucose 233 H (74-99) mg/dL AST 38 H (14-36) U/L Total Protein 5.3 L (6.3-8.2) g/dL Albumin 3.1 L (3.5-5.0) g/dL Urine Appearance Cloudy H (Clear) Urine Protein 1+ H (Negative) Urine Glucose (UA) 2+ H (Negative) Ur Leukocyte Esterase Large H (Negative) Urine WBC 66 H (0-5) /hpf Ur Squamous Epith Cells 10 H (0-4) /hpf Hyaline Casts 7 H (0-2) /lpf Urine Mucus Rare H (None) /hpf Microbiology - Last 24 Hours (Table) 06/03/18 18:50 Urine Culture - Preliminary Urine,Catheterized Diabetes panel 06/03/18 Range/Units 17:10 Sodium 138 (137-145) mmol/L Potassium 4.1 (3.5-5.1) mmol/L Chloride 101 (98-107) mmol/L Carbon Dioxide 25 (22-30) mmol/L BUN 14 (7-17) mg/dL Creatinine 0.73 (0.52-1.04) mg/dL Glucose 233 H (74-99) mg/dL Calcium 9.1 (8.4-10.2) mg/dL AST 38 H (14-36) U/L ALT 44 (9-52) U/L Alkaline Phosphatase 68 (38-126) U/L Total Protein 5.3 L (6.3-8.2) g/dL Albumin 3.1 L (3.5-5.0) g/dL Calcium panel 06/03/18 Range/Units 17:10 Calcium 9.1 (8.4-10.2) mg/dL Albumin 3.1 L (3.5-5.0) g/dL Pituitary panel 06/03/18 Range/Units 17:10 Sodium 138 (137-145) mmol/L Potassium 4.1 (3.5-5.1) mmol/L Chloride 101 (98-107) mmol/L Carbon Dioxide 25 (22-30) mmol/L BUN 14 (7-17) mg/dL Creatinine 0.73 (0.52-1.04) mg/dL Glucose 233 H (74-99) mg/dL Calcium 9.1 (8.4-10.2) mg/dL Adrenal panel 06/03/18 Range/Units 17:10 Sodium 138 (137-145) mmol/L Potassium 4.1 (3.5-5.1) mmol/L Chloride 101 (98-107) mmol/L Carbon Dioxide 25 (22-30) mmol/L BUN 14 (7-17) mg/dL Creatinine 0.73 (0.52-1.04) mg/dL Glucose 233 H (74-99) mg/dL Calcium 9.1 (8.4-10.2) mg/dL Total Bilirubin 0.8 (0.2-1.3) mg/dL AST 38 H (14-36) U/L ALT 44 (9-52) U/L Alkaline Phosphatase 68 (38-126) U/L Total Protein 5.3 L (6.3-8.2) g/dL Albumin 3.1 L (3.5-5.0) g/dL Assessment and Plan Assessment: The patient's ileus appears to resolve. Her abdomen is soft nontender. She will start on diet.
[2018-06-04 12:08] LABS: INR 2.5 (<1.2); Prothrombin Time 22.3 sec (9.0-12.0)
[2018-06-04 13:24] VITALS: BMI 21.2
--- NOTE | 2018-06-04 17:05 | P.HPIM ---
History of Present Illness H&P Date: 06/04/18 Chief Complaint: Nausea and vomiting Hayde Grewal is an 89 year old female who presented to [facility] emergency room with a chief complaint of nausea vomiting and abdominal discomfort she was evaluated in the emergency room, white blood count was within normal limits at 9.8, patient was afebrile at 96 urine analysis revealed evidence of urinary tract infection abdomen x-ray revealed evidence of small bowel ileus which is new compared to old exam, she was kept nothing by mouth and was admitted to medical floor surgical consultation with Dr. Avilez was requested. Patient has known previous history of colon cancer was previous bowel resection. Past medical history significant for #1 history of atrial fibrillation, maintained on Coumadin #2 history of stroke affecting the left side mostly left lower extremity weakness. #3 history of lower extremity DVT and PE patient has a [place] filter placed in the past #4 history of osteoporosis with L2 vertebral fracture. #5 history of hypertension #6 history of hyperlipidemia #7 history of osteoarthritis #8 history of colon cancer with partial bowel resection #9 history of falls with rib fracture Past Medical History Past Medical History: Atrial Fibrillation, Cancer, CVA/TIA, Deep Vein Thrombosis (DVT), GERD/Reflux, Hyperlipidemia, Hypertension, Osteoarthritis (OA) Additional Past Medical History / Comment(s): leaky heart valve, hernia, hemmorhoids, had spinal menigitis, colon CA, DVT's, FX rib History of Any Multi-Drug Resistant Organisms: None Reported Past Surgical History: Back Surgery, Bowel Resection, Breast Surgery, Section, Hysterectomy, Joint Replacement, Orthopedic Surgery Additional Past Surgical History / Comment(s): colonoscopies, r/l eye implants, tendons repaired R leg and hand,ivc filter Past Anesthesia/Blood Transfusion Reactions: No Reported Reaction Additional Past Anesthesia/Blood Transfusion Reaction / Comment(s): Pt has received blood in the past without reaction. Past Psychological History: No Psychological Hx Reported Additional Psychological History / Comment(s): Pt and her spouse reside with pt' s daughter, Florencia. Pt has a 4 pronged cane and a walker to use. Pt no longer drives, her spouse is able to drive. Pt is otherwise independent. Smoking Status: Former smoker Past Alcohol Use History: None Reported Additional Past Alcohol Use History / Comment(s): Pt started smoking in 9 and quit in 1963. Past Drug Use History: None Reported - Past Family History Daughter(s) Family Medical History: Cancer Additional Family Medical History / Comment(s): Daughter had breast cancer. Father Family Medical History: Cancer Additional Family Medical History / Comment(s): Father had colon cancer. Mother Family Medical History: Cancer Additional Family Medical History / Comment(s): Mother at the age of 29 yrs from a cerebral hemorrhage. Sister(s) Family Medical History: Deep Vein Thrombosis (DVT) Medications and Allergies Home Medications Medication Instructions Recorded Confirmed Type Mirabegron [Myrbetriq] 50 mg PO DAILY 02/13/15 06/03/18 History Nitroglycerin Sl Tabs [Nitrostat] 0.4 mg SUBLINGUAL DAILY PRN 02/13/15 06/03/18 History Calcium Carbonate/Vitamin D3 1 tab PO DAILY 03/30/18 06/03/18 History [Calcium 600-Vit D3 200 Tablet] Diltiazem HCl [Cartia Xt] 240 mg PO DAILY 03/30/18 06/03/18 History Docusate [Colace] 100 mg PO BID PRN 06/03/18 06/03/18 History Warfarin Sodium 2.5 mg PO SUMOTUFRSA 06/03/18 06/03/18 History Warfarin [Coumadin] 5 mg PO WETH 06/03/18 06/03/18 History traMADol HCl [Ultram] 50 mg PO Q8H PRN 06/03/18 06/03/18 History Allergies Allergy/AdvReac Type Severity Reaction Status Date / Time sertraline [From Zoloft] Allergy Unknown Verified 06/03/18 17:55 Sulfa (Sulfonamide Allergy Itching Verified 06/03/18 17:55 Antibiotics) ibuprofen [From Motrin] AdvReac Diarrhea Verified 06/03/18 17:55 Penicillins AdvReac Itching Verified 06/03/18 17:55 Physical Exam Vitals: Vital Signs Temp Pulse Pulse Resp BP BP Pulse Ox 06/04/18 15:09 88 16 06/04/18 13:45 97.8 F 88 16 95/54 96 06/04/18 07:24 102 H 100/56 06/04/18 05:54 97.2 F L 90 16 92/51 06/04/18 00:00 90 16 09/21/18 21:20 97.4 F L 93 16 118/70 93 L 06/03/18 21:07 97.6 F 06/03/18 20:39 87 18 126/68 97 06/03/18 19:23 103 H 18 109/60 96 Intake and Output 06/04/18 06/04/18 06/04/18 06:59 14:59 22:59 Intake Total 1180 Balance 1180 Intake: Intake, IV Titration 1150 Amount Sodium Chloride 0.9% 1, 1100 000 ml @ 100 mls/hr IV . Q10H [facility] Rx#:[id number] cefTRIAXone 1,000 mg In 50 Sodium Chloride 0.9% 50 ml @ 100 mls/hr IVPB Q24HR [facility] Rx#:[id number] Oral 30 Other: Voiding Method Bedside Commode Bedside Commode Bedside Commode Incontinent # Voids 2 3 3 Weight 54.431 kg 54.431 kg In general patient is alert and oriented 3 in no apparent distress HEENT head normocephalic and atraumatic Neck is supple no JVD no goiter no lymphadenopathy Chest exam reveals a few scattered crackles no wheezing Cardiac exam reveals regular heart sounds S1 and S2 no gallops no murmurs Abdomen is soft nontender no organomegaly with normal bowel sounds Extremity exam reveals no edema no cyanosis or clubbing Neurological examination reveals left sided weakness mostly in the left lower extremity which is chronic Results CBC & Chem 7: 06/03/18 17:10 06/03/18 17:10 Labs: Abnormal Lab Results - Last 24 Hours (Table) 06/03/18 06/03/18 06/03/18 Range/Units 17:10 17:10 18:50 Hgb 16.2 H (11.4-16.0) gm/dL Hct 48.6 H (34.0-46.0) % Neutrophils # 8.3 H (1.3-7.7) k/uL Lymphocytes # 0.3 L (1.0-4.8) k/uL PT (9.0-12.0) sec INR (<1.2) Glucose 233 H (74-99) mg/dL AST 38 H (14-36) U/L Total Protein 5.3 L (6.3-8.2) g/dL Albumin 3.1 L (3.5-5.0) g/dL Urine Appearance Cloudy H (Clear) Urine Protein 1+ H (Negative) Urine Glucose (UA) 2+ H (Negative) Ur Leukocyte Esterase Large H (Negative) Urine WBC 66 H (0-5) /hpf Ur Squamous Epith Cells 10 H (0-4) /hpf Hyaline Casts 7 H (0-2) /lpf Urine Mucus Rare H (None) /hpf 06/04/18 Range/Units 11:55 Hgb (11.4-16.0) gm/dL Hct (34.0-46.0) % Neutrophils # (1.3-7.7) k/uL Lymphocytes # (1.0-4.8) k/uL PT 22.3 H (9.0-12.0) sec INR 2.5 H (<1.2) Glucose (74-99) mg/dL AST (14-36) U/L Total Protein (6.3-8.2) g/dL Albumin (3.5-5.0) g/dL Urine Appearance (Clear) Urine Protein (Negative) Urine Glucose (UA) (Negative) Ur Leukocyte Esterase (Negative) Urine WBC (0-5) /hpf Ur Squamous Epith Cells (0-4) /hpf Hyaline Casts (0-2) /lpf Urine Mucus (None) /hpf Microbiology - Last 24 Hours (Table) 06/03/18 18:50 Urine Culture - Preliminary Urine,Catheterized Thrombosis Risk Factor Assmnt - Choose All That Apply Each Risk Factor Represents 3 Points: Age 75 years or older, History of DVT/PE Thrombosis Risk Factor Assessment Total Risk Factor Score: 6 Thrombosis Risk Factor Assessment Level: High Risk Assessment and Plan Plan: #1 partial bowel obstruction patient is kept nothing by mouth surgical consultation requested will monitor progress, no surgical intervention is recommended at this time. #2 Urinary tract infection, patient was started on Rocephin in the emergency room will continue eating urine culture #3 underlying history of atrial fibrillation will resume Coumadin. #4 hypertension well-controlled on current medication will continue #5 previous history of DVT with PE and has [place] filter placed, will resume Coumadin. At this time patient was evaluated by Dr. Avilez no surgical intervention recommended she has no abdominal pain she will be started on clear liquid diet will monitor progress closely will continue with IV Rocephin and resume Coumadin will recheck labs in a.m.
[2018-06-04] MEDS ORDERED: WARFARIN 5 MG TAB PO ONE (18:00)
[2018-06-05] MEDS: PANTOPRAZOLE 40 MG/10 ML VIAL IVP SCH (07:26)
[2018-06-05] MEDS: ENOXAPARIN 40 MG/0.4 ML SYRINGE SQ SCH (07:26)
[2018-06-05 07:38] LABS: Basophils % (A) 1 %; Eosinophils # (A) 0.1 k/uL (0-0.7); Eosinophils % (A) 3 %; HCT 38.6 % (34.0-46.0); Lymphocytes # (A) 0.7 k/uL (1.0-4.8); Lymphocytes % (A) 17 %; MCH 33.4 pg (25.0-35.0); MCHC 34.1 g/dL (31.0-37.0); MCV 97.7 fL (80.0-100.0); Mean Platelet Volume 6.9; Monocytes # (A) 0.3 k/uL (0-1.0); Monocytes % (A) 7 %; Neutrophils % (A) 72 %; Platelet Count 143 k/uL (150-450); RBC 3.95 m/uL (3.80-5.40); RDW 13.6 % (11.5-15.5); WBC 4.1 k/uL (3.8-10.6)
[2018-06-05 07:41] LABS: INR 2.4 (<1.2); Prothrombin Time 21.9 sec (9.0-12.0)
[2018-06-05 07:49] LABS: HGB 13.2 gm/dL (11.4-16.0)
[2018-06-05 08:42] LABS: ALT 40 U/L (9-52); AST 31 U/L (14-36); Albumin 2.5 g/dL (3.5-5.0); Alkaline Phosphatase 55 U/L (38-126); Anion Gap 4 mmol/L; Blood Urea Nitrogen 6 mg/dL (7-17); Calcium 8.5 mg/dL (8.4-10.2); Carbon Dioxide 24 mmol/L (22-30); Chloride 108 mmol/L (98-107); Glucose 107 mg/dL (74-99); Potassium 3.5 mmol/L (3.5-5.1); Sodium 136 mmol/L (137-145); Total Bilirubin 0.4 mg/dL (0.2-1.3); Total Protein 4.7 g/dL (6.3-8.2)
--- NOTE | 2018-06-05 11:44 | P.PN ---
Progress Note - Text Progress Note Date: 06/05/18 Patient is lying comfortably in bed. She states she feels some anxiety. She denies any abdominal pain. She is tolerating liquids. On exam her vital signs are stable. Her abdomen soft. The patient's ileus appears to have resolved. She will have her diet advanced as tolerated.
--- NOTE | 2018-06-05 13:17 | P.PN ---
Subjective Progress Note Date: 06/05/18 Hayde Grewal is an 89 year old female who presented to [facility] emergency room with a chief complaint of nausea vomiting and abdominal discomfort she was evaluated in the emergency room, white blood count was within normal limits at 9.8, patient was afebrile at 96 urine analysis revealed evidence of urinary tract infection abdomen x-ray revealed evidence of small bowel ileus which is new compared to old exam, she was kept nothing by mouth and was admitted to medical floor surgical consultation with Dr. Avilez was requested. Patient has known previous history of colon cancer was previous bowel resection. On 06/05/2018 patient was seen and examined, she is alert and oriented 3, she is tolerating diet well, she is passing gas but has not had any bowel movement, there is no nausea or vomiting or abdominal pain, at this time plan is to advance diet and monitor Objective - Vital Signs Vital signs: Vital Signs Temp 98.2 F 06/05/18 06:00 Pulse 92 06/05/18 06:00 Resp 16 06/05/18 06:00 BP 118/66 06/05/18 06:00 Pulse Ox 95 06/05/18 06:00 Intake & Output 06/04/18 06/05/18 06/05/18 18:59 06:59 18:59 Intake Total 1180 1200 Balance 1180 1200 Weight 54.431 kg 54.431 kg Intake: Intake, IV Titration 1150 800 Amount Sodium Chloride 0.9% 1, 1100 800 000 ml @ 100 mls/hr IV . Q10H [facility] Rx#:[id number] cefTRIAXone 1,000 mg In 50 Sodium Chloride 0.9% 50 ml @ 100 mls/hr IVPB Q24HR [facility] Rx#:[id number] Oral 30 400 Other: Voiding Method Bedside Commode Bedside Commode Bedside Commode Diaper # Voids 3 1 2 - Exam In general patient is alert and oriented 3 in no apparent distress HEENT head normocephalic and atraumatic Neck is supple no JVD no goiter no lymphadenopathy Chest exam reveals a few scattered crackles no wheezing Cardiac exam reveals regular heart sounds S1 and S2 no gallops no murmurs Abdomen is soft nontender no organomegaly with normal bowel sounds Extremity exam reveals no edema no cyanosis or clubbing Neurological examination reveals left sided weakness mostly in the left lower extremity which is chronic - Labs CBC & Chem 7: 06/05/18 07:07 06/05/18 07:07 Labs: Abnormal Lab Results - Last 24 Hours (Table) 06/05/18 06/05/18 06/05/18 Range/Units 07:07 07:07 07:07 Plt Count 143 L (150-450) k/uL Lymphocytes # 0.7 L (1.0-4.8) k/uL PT 21.9 H (9.0-12.0) sec INR 2.4 H (<1.2) Sodium 136 L (137-145) mmol/L Chloride 108 H (98-107) mmol/L BUN 6 L (7-17) mg/dL Creatinine 0.48 L (0.52-1.04) mg/dL Glucose 107 H (74-99) mg/dL Total Protein 4.7 L (6.3-8.2) g/dL Albumin 2.5 L (3.5-5.0) g/dL Microbiology - Last 24 Hours (Table) 06/03/18 18:50 Urine Culture - Final Urine,Catheterized Assessment and Plan Plan: #1 partial bowel obstruction patient is kept nothing by mouth surgical consultation requested will monitor progress, no surgical intervention is recommended at this time. #2 Urinary tract infection, patient was started on Rocephin in the emergency room will continue eating urine culture #3 underlying history of atrial fibrillation will resume Coumadin. #4 hypertension well-controlled on current medication will continue #5 previous history of DVT with PE and has Francine filter placed, will resume Coumadin. At this time patient was evaluated by Dr. Avilez no surgical intervention recommended she has no abdominal pain she will be started on clear liquid diet, she was advanced today to full liquid diet will monitor progress closely will continue with IV Rocephin and resume Coumadin will recheck labs in a.m.
[2018-06-05] MEDS: SODIUM CHLORIDE 0.9% 1,000 ML IV SCH (16:12)
[2018-06-05] MEDS ORDERED: WARFARIN 2.5 MG TAB PO ONE (18:00)
[2018-06-06 07:13] LABS: Basophils % (A) 1 %; Eosinophils # (A) 0.1 k/uL (0-0.7); Eosinophils % (A) 3 %; HCT 41.1 % (34.0-46.0); HGB 14.2 gm/dL (11.4-16.0); Lymphocytes # (A) 0.7 k/uL (1.0-4.8); Lymphocytes % (A) 18 %; MCH 33.3 pg (25.0-35.0); MCHC 34.6 g/dL (31.0-37.0); MCV 96.1 fL (80.0-100.0); Mean Platelet Volume 7.2; Monocytes # (A) 0.3 k/uL (0-1.0); Monocytes % (A) 7 %; Neutrophils # (A) 2.7 k/uL (1.3-7.7); Neutrophils % (A) 69 %; Platelet Count 146 k/uL (150-450); RBC 4.28 m/uL (3.80-5.40); RDW 13.4 % (11.5-15.5); WBC 3.9 k/uL (3.8-10.6)
[2018-06-06 07:18] LABS: INR 3.7 (<1.2); Prothrombin Time 32.8 sec (9.0-12.0)
[2018-06-06 08:07] LABS: ALT 37 U/L (9-52); AST 29 U/L (14-36); Albumin 2.7 g/dL (3.5-5.0); Alkaline Phosphatase 65 U/L (38-126); Anion Gap 5 mmol/L; Blood Urea Nitrogen 5 mg/dL (7-17); Calcium 8.7 mg/dL (8.4-10.2); Carbon Dioxide 28 mmol/L (22-30); Chloride 104 mmol/L (98-107); Glucose 128 mg/dL (74-99); Potassium 3.4 mmol/L (3.5-5.1); Sodium 137 mmol/L (137-145); Total Bilirubin 0.5 mg/dL (0.2-1.3); Total Protein 4.9 g/dL (6.3-8.2)
[2018-06-06] MEDS ORDERED: Potassium Replacement Protocol 1 EACH MISC MISCELLANE PRN ×2 (08:34→11:59)
--- NOTE | 2018-06-06 08:45 | XR ---
Abdomen HISTORY: Abdominal pain, resolving ileus Frontal view of the abdomen on 2 images correlated to prior exam 12/24/2010, 06/03/2018 there is an inferior vena cava filter at the right paraspinal location with the nose the filter stabl e compared to prior exam. Lung bases show some blunting of the costophrenic angles suggesting small e ffusions. There is a catheter present over the midline just double-J. There are air-fluid levels pres ent with gas distended loops of bowel. Bone mineralization mildly reduced. Vascular calcifications no sandy in the pelvis. IMPRESSION: There is reduction of the number of gas-filled loops of bowel as compared to prior exam. Probable basilar atelectasis and possible small effusions. Indwelling double-J stent over the midline , postprocedural changes.
[2018-06-06] MEDS: PANTOPRAZOLE 40 MG/10 ML VIAL IVP SCH (09:07)
--- NOTE | 2018-06-06 10:15 | P.PN ---
Subjective Progress Note Date: 06/06/18 Hayde Grewal is an 89 year old female who presented to [facility] emergency room with a chief complaint of nausea vomiting and abdominal discomfort she was evaluated in the emergency room, white blood count was within normal limits at 9.8, patient was afebrile at 96 urine analysis revealed evidence of urinary tract infection abdomen x-ray revealed evidence of small bowel ileus which is new compared to old exam, she was kept nothing by mouth and was admitted to medical floor surgical consultation with Dr. Avilez was requested. Patient has known previous history of colon cancer was previous bowel resection. On 06/05/2018 patient was seen and examined, she is alert and oriented 3, she is tolerating diet well, she is passing gas but has not had any bowel movement, there is no nausea or vomiting or abdominal pain, at this time plan is to advance diet and monitor 06/06/2018 patient is alert and oriented 3. Patient is currently resting comfortably in bed. Patient does state that she is passing gas but has a bowel movement. Patient denies nausea or vomiting. Patient denies chest pain or shortness of breath. Patient denies any urinary burning or frequency Objective - Vital Signs Vital signs: Vital Signs Temp 97.6 F 06/06/18 05:33 Pulse 97 06/06/18 05:33 Resp 18 06/06/18 05:33 BP 152/77 06/06/18 05:33 Pulse Ox 96 06/06/18 05:33 Intake & Output 06/05/18 06/06/18 06/06/18 18:59 06:59 18:59 Intake Total 1030 480 Output Total 3 Balance 1027 480 Weight 54.431 kg Intake: Intake, IV Titration 50 Amount cefTRIAXone 1,000 mg In 50 Sodium Chloride 0.9% 50 ml @ 100 mls/hr IVPB Q24HR [facility] Rx#:[id number] Oral 980 480 Output: Stool 3 Other: Voiding Method Bedside Commode Bedside Commode Incontinent # Voids 4 3 - Exam In general patient is alert and oriented 3 in no apparent distress HEENT head normocephalic and atraumatic Neck is supple no JVD no goiter no lymphadenopathy Chest exam reveals a few scattered crackles no wheezing Cardiac exam reveals regular heart sounds S1 and S2 no gallops no murmurs Abdomen is soft nontender no organomegaly with normal bowel sounds Extremity exam reveals no edema no cyanosis or clubbing Neurological examination reveals left sided weakness mostly in the left lower extremity which is chronic - Labs CBC & Chem 7: 06/06/18 06:53 06/06/18 06:53 Labs: Abnormal Lab Results - Last 24 Hours (Table) 06/06/18 06/06/18 06/06/18 Range/Units 06:53 06:53 06:53 Plt Count 146 L (150-450) k/uL Lymphocytes # 0.7 L (1.0-4.8) k/uL PT 32.8 H (9.0-12.0) sec INR 3.7 H (<1.2) Potassium 3.4 L (3.5-5.1) mmol/L BUN 5 L (7-17) mg/dL Creatinine 0.48 L (0.52-1.04) mg/dL Glucose 128 H (74-99) mg/dL Total Protein 4.9 L (6.3-8.2) g/dL Albumin 2.7 L (3.5-5.0) g/dL Assessment and Plan Assessment: #1 partial bowel obstruction patient is kept nothing by mouth surgical consultation requested will monitor progress, no surgical intervention is recommended at this time. Abdominal x-ray completed showing reduction of the number of gas-filled loops of bowel as compared to prior exam. Probable basilar atelectasis and possible small effusions. Indwelling double J stent 9, postprocedural changes. Per surgical services advance diet as tolerated. #2 Urinary tract infection, patient was started on Rocephin. UA showing large amount of leukocyte esterase urine culture ordered #3 underlying history of atrial fibrillation will resume Coumadin. #4 hypertension well-controlled on current medication will continue #5 previous history of DVT with PE and has [place] filter placed, will resume Coumadin. INR 3.7 DVT prophylaxis Coumadin GI prophylaxis Protonix I performed an examination of the patient and discussed their management with the Nurse Practitioner. I have reviewed the Nurse Practitioner's notes and agree with the documented findings and plan of care
[2018-06-06] MEDS: SODIUM CHLORIDE 0.9% 1,000 ML IV SCH (10:55)
[2018-06-06] MEDS: POTASSIUM CHLORIDE ER 20 MEQ TAB.ER PO SCH (11:45)
--- NOTE | 2018-06-06 14:02 | XR ---
EXAMINATION TYPE: XR chest 2V DATE OF EXAM: 06/06/2018 COMPARISON: Prior chest x-ray 06/03/2018 03/30/2018 HISTORY: Possible aspiration, shortness of breath TECHNIQUE: Frontal and lateral views of the chest are obtained. FINDINGS: There is some improved aeration at the left lung base. Heart remains enlarged. Postprocedu ral changes again noted within the abdomen. No evident pneumothorax. Pulmonary vascularity and ezekiel a re not significantly changed. There is blunting the posterior costophrenic angles. There are coronary artery calcifications. Prominent lung lines suggest possible underlying COPD. IMPRESSION: Difficult to exclude small effusions. Improved aeration. Cardiomegaly. Postop changes.
--- NOTE | 2018-06-06 14:23 | P.PN ---
Subjective Progress Note Date: 06/06/18 83-year-old female sitting up in bed in no acute distress chief complaint states has not had a bowel movement today patient has been incontinent urine Patient reports no nausea vomiting denying shortness breath or chest pain. White count 3.9 potassium 3.4 the INR is elevated at 3.7 additionally patient reports difficulty in swallowing defer to the attending to address abdominal x- ray obtained this morning reviewing the report a reduction in the gas-filled loops of the bowel compared to prior exam Objective - Vital Signs Vital signs: Vital Signs Temp 97.6 F 06/06/18 05:33 Pulse 97 06/06/18 05:33 Resp 18 06/06/18 05:33 BP 152/77 06/06/18 05:33 Pulse Ox 96 06/06/18 05:33 Intake & Output 06/05/18 06/06/18 06/06/18 18:59 06:59 18:59 Intake Total 1030 480 Output Total 3 Balance 1027 480 Weight 54.431 kg Intake: Intake, IV Titration 50 Amount cefTRIAXone 1,000 mg In 50 Sodium Chloride 0.9% 50 ml @ 100 mls/hr IVPB Q24HR [facility] Rx#:[id number] Oral 980 480 Output: Stool 3 Other: Voiding Method Bedside Commode Bedside Commode Bedside Commode Incontinent Incontinent # Voids 4 3 - Exam Physical exam 83-year-old female sitting up in bed very hard hearing appears in no acute distress l ungs diminished at the bases otherwise adequate air movement Heart S1-S2 audible regular Abdomen soft not distended bowel tones present no stool incontinently urine, no nausea no vomiting extremities no edema - Labs CBC & Chem 7: 06/06/18 06:53 06/06/18 06:53 Labs: Abnormal Lab Results - Last 24 Hours (Table) 06/06/18 06/06/18 06/06/18 Range/Units 06:53 06:53 06:53 Plt Count 146 L (150-450) k/uL Lymphocytes # 0.7 L (1.0-4.8) k/uL PT 32.8 H (9.0-12.0) sec INR 3.7 H (<1.2) Potassium 3.4 L (3.5-5.1) mmol/L BUN 5 L (7-17) mg/dL Creatinine 0.48 L (0.52-1.04) mg/dL Glucose 128 H (74-99) mg/dL Total Protein 4.9 L (6.3-8.2) g/dL Albumin 2.7 L (3.5-5.0) g/dL Assessment and Plan Assessment: Impression Present on admission abdominal pain suspect due to ileus resolving UTI being followed by medicine Hypertension 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 Rose Marie Gan nurse practitioner acting as scribe for signing physician.
[2018-06-06] MEDS: POTASSIUM CHLORIDE 10 MEQ in WATER FOR INJECTION 1 100ML.BAG IVPB SCH ×2 (15:57→17:38)
[2018-06-07] MEDS: SODIUM CHLORIDE 0.9% 1,000 ML IV SCH (08:29)
[2018-06-07] MEDS: PANTOPRAZOLE 40 MG/10 ML VIAL IVP SCH (08:30)
[2018-06-07 08:33] LABS: Basophils % (A) 0 %; Eosinophils # (A) 0.1 k/uL (0-0.7); Eosinophils % (A) 2 %; HCT 41.9 % (34.0-46.0); HGB 14.3 gm/dL (11.4-16.0); Lymphocytes # (A) 0.6 k/uL (1.0-4.8); Lymphocytes % (A) 17 %; MCH 32.7 pg (25.0-35.0); MCHC 34.2 g/dL (31.0-37.0); MCV 95.7 fL (80.0-100.0); Mean Platelet Volume 7.2; Monocytes # (A) 0.3 k/uL (0-1.0); Monocytes % (A) 7 %; Neutrophils # (A) 2.5 k/uL (1.3-7.7); Neutrophils % (A) 71 %; Platelet Count 153 k/uL (150-450); RBC 4.38 m/uL (3.80-5.40); RDW 13.4 % (11.5-15.5); WBC 3.5 k/uL (3.8-10.6)
[2018-06-07 08:36] LABS: INR 3.8 (<1.2); Prothrombin Time 34.1 sec (9.0-12.0)
[2018-06-07 08:47] LABS: ALT 36 U/L (9-52); AST 29 U/L (14-36); Albumin 2.7 g/dL (3.5-5.0); Alkaline Phosphatase 63 U/L (38-126); Anion Gap 5 mmol/L; Blood Urea Nitrogen 4 mg/dL (7-17); Calcium 8.6 mg/dL (8.4-10.2); Carbon Dioxide 26 mmol/L (22-30); Chloride 106 mmol/L (98-107); Glucose 114 mg/dL (74-99); Potassium 3.5 mmol/L (3.5-5.1); Sodium 137 mmol/L (137-145); Total Bilirubin 0.5 mg/dL (0.2-1.3); Total Protein 4.9 g/dL (6.3-8.2)
--- NOTE | 2018-06-07 11:44 | P.PN ---
Subjective Progress Note Date: 06/07/18 Hayde Grewal is an 89 year old female who presented to [facility] emergency room with a chief complaint of nausea vomiting and abdominal discomfort she was evaluated in the emergency room, white blood count was within normal limits at 9.8, patient was afebrile at 96 urine analysis revealed evidence of urinary tract infection abdomen x-ray revealed evidence of small bowel ileus which is new compared to old exam, she was kept nothing by mouth and was admitted to medical floor surgical consultation with Dr. Avilez was requested. Patient has known previous history of colon cancer was previous bowel resection. On 06/05/2018 patient was seen and examined, she is alert and oriented 3, she is tolerating diet well, she is passing gas but has not had any bowel movement, there is no nausea or vomiting or abdominal pain, at this time plan is to advance diet and monitor 06/06/2018 patient is alert and oriented 3. Patient is currently resting comfortably in bed. Patient does state that she is passing gas but has not had a bowel movement. Patient denies nausea or vomiting. Patient denies chest pain or shortness of breath. Patient denies any urinary burning or frequency 06/07/2018 patient is alert and oriented 3. Per nursing staff patient did have a bowel movement yesterday. This time patient does complain of some abdominal pain. Patient denies any nausea or vomiting. Patient denies chest pain or shortness of breath. Patient denies any urinary burning or frequency. Objective - Vital Signs Vital signs: Vital Signs Temp 98.1 F 06/07/18 06:10 Pulse 88 06/07/18 10:20 Resp 16 06/07/18 06:10 BP 140/76 06/07/18 06:10 Pulse Ox 96 06/07/18 06:10 Intake & Output 06/06/18 06/07/18 06/07/18 18:59 06:59 18:59 Intake Total 830 240 Balance 830 240 Weight 54.431 kg Intake: Intake, IV Titration 650 Amount Sodium Chloride 0.9% 1, 650 000 ml @ 50 mls/hr IV . Q20H [facility] Rx#:[id number] Oral 180 240 Other: Voiding Method Bedside Commode Bedside Commode Incontinent Diaper Incontinent # Voids 1 1 # Bowel Movements 1 - Exam In general patient is alert and oriented 3 in no apparent distress HEENT head normocephalic and atraumatic Neck is supple no JVD no goiter no lymphadenopathy Chest exam reveals a few scattered crackles no wheezing Cardiac exam reveals regular heart sounds S1 and S2 no gallops no murmurs Abdomen is soft nontender no organomegaly with normal bowel sounds Extremity exam reveals no edema no cyanosis or clubbing Neurological examination reveals left sided weakness mostly in the left lower extremity which is chronic - Labs CBC & Chem 7: 06/07/18 07:36 06/07/18 07:36 Labs: Abnormal Lab Results - Last 24 Hours (Table) 06/07/18 06/07/18 06/07/18 Range/Units 07:36 07:36 07:36 WBC 3.5 L (3.8-10.6) k/uL Lymphocytes # 0.6 L (1.0-4.8) k/uL PT 34.1 H (9.0-12.0) sec INR 3.8 H (<1.2) BUN 4 L (7-17) mg/dL Creatinine 0.43 L (0.52-1.04) mg/dL Glucose 114 H (74-99) mg/dL Total Protein 4.9 L (6.3-8.2) g/dL Albumin 2.7 L (3.5-5.0) g/dL Assessment and Plan Assessment: #1 partial bowel obstruction patient is kept nothing by mouth surgical consultation requested will monitor progress, no surgical intervention is recommended at this time. Abdominal x-ray completed showing reduction of the number of gas-filled loops of bowel as compared to prior exam. Probable basilar atelectasis and possible small effusions. Indwelling double J stent 9, postprocedural changes. Per surgical services advance diet as tolerated. No evidence of an acute surgical abdomen at this time. Continue supportive care per surgical services #2 Urinary tract infection, patient was started on Rocephin. UA showing large amount of leukocyte esterase urine culture ordered #3 underlying history of atrial fibrillation will resume Coumadin. #4 hypertension well-controlled on current medication will continue #5 previous history of DVT with PE and has [place] filter placed, will resume Coumadin. INR 3.8 #6 difficulty in swallowing. Chest x-ray completed showing difficult to exclude small effusion. Improved aeration. Cardiomegaly. Postop changes. Speech consulted for swallow eval. No signs of aspiration per speech therapy. DVT prophylaxis Coumadin GI prophylaxis Protonix I performed an examination of the patient and discussed their management with the Nurse Practitioner. I have reviewed the Nurse Practitioner's notes and agree with the documented findings and plan of care
[2018-06-07] MEDS ORDERED: HYDROcodone/APAP 5-325MG 1 EACH TAB PO PRN (12:07)
[2018-06-07] MEDS: DOCUSATE 100 MG CAP PO SCH ×2 (13:52→20:31)
[2018-06-07] MEDS: POLYETHYLENE GLYCOL 3350 17 GM POWD.PACK PO SCH (13:52)
--- NOTE | 2018-06-07 13:57 | P.PN ---
Subjective Progress Note Date: 06/07/18 83-year-old female seen sitting up in bed asking for diet to be advanced currently denying abdominal pain when questioning reports no nausea vomiting nursing reports patient had a bowel movement yesterday no stool today abdomen not distended nontender Objective - Vital Signs Vital signs: Vital Signs Temp 97.6 F 06/07/18 12:47 Pulse 65 06/07/18 12:47 Resp 16 06/07/18 12:47 BP 135/80 06/07/18 12:47 Pulse Ox 96 06/07/18 12:47 Intake & Output 06/06/18 06/07/18 06/07/18 18:59 06:59 18:59 Intake Total 830 240 Balance 830 240 Weight 54.431 kg Intake: Intake, IV Titration 650 Amount Sodium Chloride 0.9% 1, 650 000 ml @ 50 mls/hr IV . Q20H [facility] Rx#:[id number] Oral 180 240 Other: Voiding Method Bedside Commode Bedside Commode Incontinent Diaper Incontinent # Voids 1 1 # Bowel Movements 1 - Exam Physical exam 83-year-old female sitting up in bed very hard hearing appears in no acute distress l asking for a diet ungs adequate air movement no shortness of breath no cough Heart S1-S2 audible regular Abdomen soft not distended bowel tones present no stool had a bowel movement yesterday by nursing report incontinently urine, no nausea no vomiting extremities no edema - Labs CBC & Chem 7: 06/07/18 07:36 06/07/18 07:36 Labs: Abnormal Lab Results - Last 24 Hours (Table) 06/07/18 06/07/18 06/07/18 Range/Units 07:36 07:36 07:36 WBC 3.5 L (3.8-10.6) k/uL Lymphocytes # 0.6 L (1.0-4.8) k/uL PT 34.1 H (9.0-12.0) sec INR 3.8 H (<1.2) BUN 4 L (7-17) mg/dL Creatinine 0.43 L (0.52-1.04) mg/dL Glucose 114 H (74-99) mg/dL Total Protein 4.9 L (6.3-8.2) g/dL Albumin 2.7 L (3.5-5.0) g/dL Assessment and Plan Assessment: Impression Present on admission abdominal pain suspect due to ileus resolving UTI being followed by medicine Hypertension 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 Rose Marie Gan nurse practitioner acting as scribe for signing physician.
[2018-06-08] MEDS: SODIUM CHLORIDE 0.9% 1,000 ML IV SCH (04:32)
[2018-06-08] MEDS: DOCUSATE 100 MG CAP PO SCH ×2 (07:58→21:22)
[2018-06-08] MEDS: DILTIAZEM CD 240 MG CAP.ER.24H PO SCH (07:58)
[2018-06-08] MEDS: POLYETHYLENE GLYCOL 3350 17 GM POWD.PACK PO SCH (07:59)
[2018-06-08] MEDS: PANTOPRAZOLE 40 MG TABLET PO SCH (07:59)
[2018-06-08] MEDS: NON-FORMULARY DRUG (Mirabegron [Myrbetriq] 50 MG) PO SCH (08:06)
[2018-06-08 08:24] LABS: INR 2.9 (<1.2); Prothrombin Time 25.8 sec (9.0-12.0)
[2018-06-08 08:29] LABS: Basophils % (A) 1 %; Eosinophils # (A) 0.1 k/uL (0-0.7); Eosinophils % (A) 2 %; HCT 41.6 % (34.0-46.0); HGB 13.7 gm/dL (11.4-16.0); Lymphocytes # (A) 0.6 k/uL (1.0-4.8); Lymphocytes % (A) 16 %; MCH 32.1 pg (25.0-35.0); MCHC 32.9 g/dL (31.0-37.0); MCV 97.5 fL (80.0-100.0); Mean Platelet Volume 6.7; Monocytes # (A) 0.3 k/uL (0-1.0); Monocytes % (A) 8 %; Neutrophils # (A) 2.5 k/uL (1.3-7.7); Neutrophils % (A) 72 %; Platelet Count 151 k/uL (150-450); RBC 4.26 m/uL (3.80-5.40); RDW 13.7 % (11.5-15.5); WBC 3.5 k/uL (3.8-10.6)
[2018-06-08 10:03] LABS: ALT 32 U/L (9-52); AST 26 U/L (14-36); Albumin 2.6 g/dL (3.5-5.0); Alkaline Phosphatase 58 U/L (38-126); Anion Gap 6 mmol/L; Blood Urea Nitrogen 6 mg/dL (7-17); Calcium 8.8 mg/dL (8.4-10.2); Carbon Dioxide 24 mmol/L (22-30); Chloride 108 mmol/L (98-107); Glucose 112 mg/dL (74-99); Potassium 3.2 mmol/L (3.5-5.1); Sodium 138 mmol/L (137-145); Total Bilirubin 0.5 mg/dL (0.2-1.3); Total Protein 4.9 g/dL (6.3-8.2)
[2018-06-08] MEDS ORDERED: Potassium Replacement Protocol 1 EACH MISC MISCELLANE PRN (10:43)
[2018-06-08] MEDS: POTASSIUM CHLORIDE 10 MEQ in WATER FOR INJECTION 1 100ML.BAG IVPB SCH ×4 (12:51→18:02)
[2018-06-08] MEDS: CALCIUM CARB-VIT D 500MG-200UN 1 EACH TAB PO SCH (12:56)
--- NOTE | 2018-06-08 13:08 | P.PN ---
Subjective Progress Note Date: 06/08/18 83-year-old female seen at the bedside sitting up in bed pleasant oriented to person and place taking a diet no difficulty reports no nausea no vomiting no stool white count 3.5 hemoglobin 13.7 INR 2.9 potassium 3.2 being replaced reports the patient has been up in a chair today Objective - Vital Signs Vital signs: Vital Signs Temp 97.5 F L 06/08/18 05:00 Pulse 84 06/08/18 05:00 Resp 16 06/08/18 05:00 BP 131/78 06/08/18 05:00 Pulse Ox 97 06/08/18 05:00 Intake & Output 06/07/18 06/08/18 06/08/18 18:59 06:59 18:59 Intake Total 1410 840 Balance 1410 840 Weight 54.431 kg Intake: Intake, IV Titration 450 600 Amount Sodium Chloride 0.9% 1, 400 600 000 ml @ 50 mls/hr IV . Q20H [facility] Rx#:[id number] cefTRIAXone 1,000 mg In 50 Sodium Chloride 0.9% 50 ml @ 100 mls/hr IVPB Q24HR [facility] Rx#:[id number] Oral 960 240 Other: Voiding Method Bedside Commode Bedside Commode Diaper Diaper Incontinent Incontinent # Voids 4 2 - Exam Physical exam 83-year-old female sitting up in bed very hard hearing appears in no acute distress pleasant cooperative oriented to self and place ungs adequate air movement no shortness of breath no cough Heart S1-S2 audible regular Abdomen soft not distended bowel tones present no stool incontinently urine, no nausea no vomiting tolerating a diet extremities no edema - Labs CBC & Chem 7: 06/08/18 07:37 06/08/18 07:37 Labs: Abnormal Lab Results - Last 24 Hours (Table) 06/08/18 06/08/18 06/08/18 Range/Units 07:37 07:37 07:37 WBC 3.5 L (3.8-10.6) k/uL Lymphocytes # 0.6 L (1.0-4.8) k/uL PT 25.8 H (9.0-12.0) sec INR 2.9 H (<1.2) Potassium 3.2 L (3.5-5.1) mmol/L Chloride 108 H (98-107) mmol/L BUN 6 L (7-17) mg/dL Creatinine 0.45 L (0.52-1.04) mg/dL Glucose 112 H (74-99) mg/dL Total Protein 4.9 L (6.3-8.2) g/dL Albumin 2.6 L (3.5-5.0) g/dL Assessment and Plan Assessment: Impression Present on admission abdominal pain suspect due to ileus resolving UTI being followed by medicine Hypertension 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 Rose Marie Gan nurse practitioner acting as scribe for signing physician.
--- NOTE | 2018-06-08 13:17 | P.PN ---
Subjective Progress Note Date: 06/08/18 Hayde Grewal is an 89 year old female who presented to [facility] emergency room with a chief complaint of nausea vomiting and abdominal discomfort she was evaluated in the emergency room, white blood count was within normal limits at 9.8, patient was afebrile at 96 urine analysis revealed evidence of urinary tract infection abdomen x-ray revealed evidence of small bowel ileus which is new compared to old exam, she was kept nothing by mouth and was admitted to medical floor surgical consultation with Dr. Avilez was requested. Patient has known previous history of colon cancer was previous bowel resection. On 06/05/2018 patient was seen and examined, she is alert and oriented 3, she is tolerating diet well, she is passing gas but has not had any bowel movement, there is no nausea or vomiting or abdominal pain, at this time plan is to advance diet and monitor 06/06/2018 patient is alert and oriented 3. Patient is currently resting comfortably in bed. Patient does state that she is passing gas but has not had a bowel movement. Patient denies nausea or vomiting. Patient denies chest pain or shortness of breath. Patient denies any urinary burning or frequency 06/07/2018 patient is alert and oriented 3. Per nursing staff patient did have a bowel movement yesterday. This time patient does complain of some abdominal pain. Patient denies any nausea or vomiting. Patient denies chest pain or shortness of breath. Patient denies any urinary burning or frequency. On 06/08/2018 patient is alert and oriented 3 has not had a bowel movement. Patient denies any abdominal pain today. Patient denies any nausea and vomiting. Minimum appetite per patient. At this time patient denies chest pain or shortness of breath. Patient denies any urinary burning or frequency. Objective - Vital Signs Vital signs: Vital Signs Temp 97.8 F 06/08/18 12:00 Pulse 60 06/08/18 12:00 Resp 16 06/08/18 12:00 BP 103/60 06/08/18 12:00 Pulse Ox 97 06/08/18 12:00 Intake & Output 06/07/18 06/08/18 06/08/18 18:59 06:59 18:59 Intake Total 1410 840 Balance 1410 840 Weight 54.431 kg Intake: Intake, IV Titration 450 600 Amount Sodium Chloride 0.9% 1, 400 600 000 ml @ 50 mls/hr IV . Q20H [facility] Rx#:[id number] cefTRIAXone 1,000 mg In 50 Sodium Chloride 0.9% 50 ml @ 100 mls/hr IVPB Q24HR [facility] Rx#:[id number] Oral 960 240 Other: Voiding Method Bedside Commode Bedside Commode Diaper Diaper Incontinent Incontinent # Voids 4 2 - Exam In general patient is alert and oriented 3 in no apparent distress HEENT head normocephalic and atraumatic Neck is supple no JVD no goiter no lymphadenopathy Chest exam reveals a few scattered crackles no wheezing Cardiac exam reveals regular heart sounds S1 and S2 no gallops no murmurs Abdomen is soft nontender no organomegaly with normal bowel sounds Extremity exam reveals no edema no cyanosis or clubbing Neurological examination reveals left sided weakness mostly in the left lower extremity which is chronic - Labs CBC & Chem 7: 06/08/18 07:37 06/08/18 07:37 Labs: Abnormal Lab Results - Last 24 Hours (Table) 06/08/18 06/08/18 06/08/18 Range/Units 07:37 07:37 07:37 WBC 3.5 L (3.8-10.6) k/uL Lymphocytes # 0.6 L (1.0-4.8) k/uL PT 25.8 H (9.0-12.0) sec INR 2.9 H (<1.2) Potassium 3.2 L (3.5-5.1) mmol/L Chloride 108 H (98-107) mmol/L BUN 6 L (7-17) mg/dL Creatinine 0.45 L (0.52-1.04) mg/dL Glucose 112 H (74-99) mg/dL Total Protein 4.9 L (6.3-8.2) g/dL Albumin 2.6 L (3.5-5.0) g/dL Assessment and Plan Assessment: #1 partial bowel obstruction patient is kept nothing by mouth surgical consultation requested will monitor progress, no surgical intervention is recommended at this time. Abdominal x-ray completed showing reduction of the number of gas-filled loops of bowel as compared to prior exam. Probable basilar atelectasis and possible small effusions. Indwelling double J stent 9, postprocedural changes. Per surgical services advance diet as tolerated. No evidence of an acute surgical abdomen at this time. Continue supportive care per surgical services. Colace and MiraLAX added per surgical team. #2 Urinary tract infection, patient was started on Rocephin. UA showing large amount of leukocyte esterase urine culture ordered #3 underlying history of atrial fibrillation will resume Coumadin. #4 hypertension well-controlled on current medication will continue #5 previous history of DVT with PE and has [place] filter placed, will resume Coumadin. INR 3.8 #6 difficulty in swallowing. Chest x-ray completed showing difficult to exclude small effusion. Improved aeration. Cardiomegaly. Postop changes. Barium swallow completed. No signs of aspiration per speech therapy. #7 hypokalemia. Potassium 3.2. Replace per protocol DVT prophylaxis Coumadin GI prophylaxis Protonix I performed an examination of the patient and discussed their management with the Nurse Practitioner. I have reviewed the Nurse Practitioner's notes and agree with the documented findings and plan of care
[2018-06-08] MEDS ORDERED: NA PHOS,M-B/NA PHOS,DI-BA 133 ML ENEMA RECTAL ONE (13:53)
[2018-06-09] MEDS: SODIUM CHLORIDE 0.9% 1,000 ML IV SCH (00:13)
[2018-06-09 08:31] LABS: INR 1.8 (<1.2); Prothrombin Time 16.9 sec (9.0-12.0)
[2018-06-09 08:42] LABS: ALT 34 U/L (9-52); AST 34 U/L (14-36); Albumin 2.8 g/dL (3.5-5.0); Alkaline Phosphatase 56 U/L (38-126); Anion Gap 6 mmol/L; Blood Urea Nitrogen 8 mg/dL (7-17); Carbon Dioxide 25 mmol/L (22-30); Chloride 106 mmol/L (98-107); Glucose 117 mg/dL (74-99); Potassium 3.9 mmol/L (3.5-5.1); Sodium 137 mmol/L (137-145); Total Bilirubin 0.6 mg/dL (0.2-1.3); Total Protein 5.1 g/dL (6.3-8.2)
[2018-06-09 08:51] LABS: Basophils % (A) 1 %; Eosinophils # (A) 0.1 k/uL (0-0.7); Eosinophils % (A) 2 %; Lymphocytes # (A) 0.5 k/uL (1.0-4.8); Lymphocytes % (A) 16 %; MCH 32.9 pg (25.0-35.0); MCHC 34.2 g/dL (31.0-37.0); MCV 96.1 fL (80.0-100.0); Mean Platelet Volume 7.1; Monocytes # (A) 0.2 k/uL (0-1.0); Monocytes % (A) 7 %; Neutrophils # (A) 2.6 k/uL (1.3-7.7); Neutrophils % (A) 74 %; Platelet Count 180 k/uL (150-450); RBC 4.26 m/uL (3.80-5.40); RDW 13.5 % (11.5-15.5); WBC 3.5 k/uL (3.8-10.6)
[2018-06-09] MEDS: NON-FORMULARY DRUG (Mirabegron [Myrbetriq] 50 MG) PO SCH (09:17)
--- NOTE | 2018-06-09 09:24 | CDI ---
Documentation Clarification Form Date: 06/09/18 CDS: Leyla Guillen RN Admit Date: 05/23/18 Patient Name: Hayde Grewal ATTENTION: The Clinical Documentation Specialists (CDI) and [facility] Coding Staff appreciate your assistance in clarifying documentation. Please respond to the clarification below the line at the bottom and electronically sign. The CDI & [facility] Coding staff will review the response and follow-up if needed. Please note: Queries are made part of the Legal Health Record. If you have any questions, please contact the author of this message via ITS. Dr. Joseluis Ponce MD, Can you please render your opinion on the following documentation? Pt. presented with abdominal pain. Admitted for possible bowel obstruction/ ileus. History/Risk Factors: a fib, stroke, DVT, osteoporosis, HTN, hyperlipidemia, OA , colon cancer with partial bowel resection, falls, x smoker Clinical Indicators: Labs: Albumin 2.7, Total Protein 4.9 Current BMI: 21.3 Insufficient energy intake: yes RD 06/08 states:" Appetite poor, nutrition intake poor, underweight" Treatment: Dietary Consult: yes Supplements/TPN: Commercial beverage, and Ensure Enlive Lab monitoring In your professional opinion, can you please clarify if these findings signify one of the following conditions? Mild Protein-Calorie Malnutrition Moderate Protein-Calorie Malnutrition Other condition, please specify Unable to determine mild protein calorie malnutrition MTDD
[2018-06-09] MEDS: DILTIAZEM CD 240 MG CAP.ER.24H PO SCH (09:32)
[2018-06-09] MEDS: DOCUSATE 100 MG CAP PO SCH (09:32)
[2018-06-09] MEDS: POLYETHYLENE GLYCOL 3350 17 GM POWD.PACK PO SCH (09:33)
[2018-06-09] MEDS: PANTOPRAZOLE 40 MG TABLET PO SCH (09:33)
[2018-06-09 11:57] VITALS: BP 111/64; PULSE 111; RESP 14; TEMP 98.1
[2018-06-09] MEDS: CALCIUM CARB-VIT D 500MG-200UN 1 EACH TAB PO SCH (13:51)
--- NOTE | 2018-06-09 14:20 | P.PN ---
Subjective Progress Note Date: 06/09/18 83-year-old female sitting up in the chair talking with taking a diet patient states she had a bowel movement today when questioning patient patient' s denying any abdominal pain denies dizziness lightheadedness chest pain or shortness of breath Objective - Vital Signs Vital signs: Vital Signs Temp 98.1 F 06/09/18 11:56 Pulse 111 H 06/09/18 11:56 Resp 14 06/09/18 11:56 BP 111/64 06/09/18 11:56 Pulse Ox 96 06/09/18 11:56 Intake & Output 06/08/18 06/09/18 06/09/18 18:59 06:59 18:59 Intake Total 2190 960 Output Total 3 Balance 2187 960 Weight 54.431 kg Intake: Intake, IV Titration 750 600 Amount Potassium Chloride 10 meq 300 In Water For Injection 1 100ml.bag @ 100 mls/hr IVPB Q1HR [facility] Rx#: [id number] Sodium Chloride 0.9% 1, 400 600 000 ml @ 50 mls/hr IV . Q20H [facility] Rx#:[id number] cefTRIAXone 1,000 mg In 50 Sodium Chloride 0.9% 50 ml @ 100 mls/hr IVPB Q24HR [facility] Rx#:[id number] Oral 1440 360 Output: Stool 3 Other: Voiding Method Bedside Commode Diaper Diaper Diaper Incontinent Incontinent Incontinent # Voids 3 2 # Bowel Movements 1 - Exam Physical exam 83-year-old female sitting up in a chair very hard hearing appears in no acute distress pleasant cooperative oriented to self and place ungs adequate air movement no shortness of breath no cough Heart S1-S2 audible regular Abdomen soft not distended bowel tones present states had a bowel movement this morning incontinently urine, no nausea no vomiting tolerating a diet extremities no edema - Labs CBC & Chem 7: 06/09/18 07:29 06/09/18 07:29 Labs: Abnormal Lab Results - Last 24 Hours (Table) 06/09/18 06/09/18 06/09/18 Range/Units 07:29 07:29 07:29 WBC 3.5 L (3.8-10.6) k/uL Lymphocytes # 0.5 L (1.0-4.8) k/uL PT 16.9 H (9.0-12.0) sec INR 1.8 H (<1.2) Creatinine 0.42 L (0.52-1.04) mg/dL Glucose 117 H (74-99) mg/dL Total Protein 5.1 L (6.3-8.2) g/dL Albumin 2.8 L (3.5-5.0) g/dL Assessment and Plan Assessment: Impression Present on admission abdominal pain suspect due to ileus resolving UTI being followed by medicine Hypertension 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 Rose Marie Gan nurse practitioner acting as scribe for signing physician.
--- NOTE | 2018-06-09 15:04 | P.DS ---
Providers Date of admission: 06/03/18 19:43 Expected date of discharge: 06/09/18 Attending physician: Michelle Ponce Consults: 06/03/18 19:42 Consult Physician Routine Consulting Provider: Nitin Avilez Consult Reason/Comments: ileus Do you want consulting provider notified?: Yes Primary care physician: Dina Sotomayor [facility] Course: Discharge diagnosis #1 partial bowel obstruction patient is kept nothing by mouth surgical consultation requested will monitor progress, no surgical intervention is recommended at this time. Abdominal x-ray completed showing reduction of the number of gas-filled loops of bowel as compared to prior exam. Probable basilar atelectasis and possible small effusions. Indwelling double J stent 9, postprocedural changes. Per surgical services advance diet as tolerated. No evidence of an acute surgical abdomen at this time. Continue supportive care per surgical services. Colace and MiraLAX added per surgical team. She received enema yesterday patient did have bowel movement. Patient states she's feeling much improved and eager to go home. Patient has been cleared for discharge from surgical standpoint. Patient to follow-up outpatient surgical services #2 Urinary tract infection, patient was started on Rocephin. UA showing large amount of leukocyte esterase urine culture ordered. Patient has completed treatment for UTI #3 underlying history of atrial fibrillation will resume Coumadin. Coumadin will be decreased to 2.5 every day due to patient having elevated INR throughout stay. INR has been ordered to be drawn in 3 days. 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 Coumadin will be decreased to 2.5 every day #6 difficulty in swallowing. Chest x-ray completed showing difficult to exclude small effusion. Improved aeration. Cardiomegaly. Postop changes. Barium swallow completed. No signs of aspiration per speech therapy. #7 hypokalemia. Potassium 3.2. Replace per protocol. Potassium 3.9 I performed an examination of the patient and disc Hospital Course Hayde Grewal is an 89 year old female who presented to [facility] emergency room with a chief complaint of nausea vomiting and abdominal discomfort she was evaluated in the emergency room, white blood count was within normal limits at 9.8, patient was afebrile at 96 urine analysis revealed evidence of urinary tract infection abdomen x-ray revealed evidence of small bowel ileus which is new compared to old exam, she was kept nothing by mouth and was admitted to medical floor surgical consultation with Dr. Avilez was requested. Patient has known previous history of colon cancer was previous bowel resection. On 06/05/2018 patient was seen and examined, she is alert and oriented 3, she is tolerating diet well, she is passing gas but has not had any bowel movement, there is no nausea or vomiting or abdominal pain, at this time plan is to advance diet and monitor 06/06/2018 patient is alert and oriented 3. Patient is currently resting comfortably in bed. Patient does state that she is passing gas but has not had a bowel movement. Patient denies nausea or vomiting. Patient denies chest pain or shortness of breath. Patient denies any urinary burning or frequency 06/07/2018 patient is alert and oriented 3. Per nursing staff patient did have a bowel movement yesterday. This time patient does complain of some abdominal pain. Patient denies any nausea or vomiting. Patient denies chest pain or shortness of breath. Patient denies any urinary burning or frequency. On 06/08/2018 patient is alert and oriented 3 has not had a bowel movement. Patient denies any abdominal pain today. Patient denies any nausea and vomiting. Minimum appetite per patient. At this time patient denies chest pain or shortness of breath. Patient denies any urinary burning or frequency. On 06/09/2018 is alert and oriented 3. Patient does report that she did have a bowel movement. Patient states she feels much improved. Denies nausea or vomiting. Denies chest pain or shortness breath. Patient is eager to go home. Patient will be going home with daughter and home healthcare services .Patient 's Coumadin will be decreased to 2.5 mg every day. Patient had elevated PT-INR level during stay. Current pain level 1.9. PT/INR order for 3 days. Patient to follow-up closely with PCP and surgical services. I performed an examination of the patient and discussed their management with the Nurse Practitioner. I have reviewed the Nurse Practitioner's notes and agree with the documented findings and plan of care Patient Condition at Discharge: Stable Plan - Discharge Summary Discharge Rx Participant: No New Discharge Prescriptions: New Warfarin [Coumadin] 2.5 mg PO DAILY@1800 #30 tab Continue Mirabegron [Myrbetriq] 50 mg PO DAILY Nitroglycerin Sl Tabs [Nitrostat] 0.4 mg SUBLINGUAL DAILY PRN PRN Reason: Angina Calcium Carbonate/Vitamin D3 [Calcium 600-Vit D3 200 Tablet] 1 tab PO DAILY Diltiazem HCl [Cartia Xt] 240 mg PO DAILY Docusate [Colace] 100 mg PO BID PRN PRN Reason: Constipation traMADol HCl [Ultram] 50 mg PO Q8H PRN PRN Reason: Pain Discontinued Warfarin [Coumadin] 5 mg PO WETH Warfarin Sodium 2.5 mg PO SUMOTUFRSA Discharge Medication List Mirabegron [Myrbetriq] 50 mg PO DAILY 02/13/15 [History] Nitroglycerin Sl Tabs [Nitrostat] 0.4 mg SUBLINGUAL DAILY PRN 02/13/15 [History] Calcium Carbonate/Vitamin D3 [Calcium 600-Vit D3 200 Tablet] 1 tab PO DAILY [History] Diltiazem HCl [Cartia Xt] 240 mg PO DAILY 03/30/18 [History] Docusate [Colace] 100 mg PO BID PRN 06/03/18 [History] traMADol HCl [Ultram] 50 mg PO Q8H PRN 06/03/18 [History] Warfarin [Coumadin] 2.5 mg PO DAILY@1800 #30 tab 06/09/18 [Rx] Follow up Appointment(s)/Referral(s): [facility], [NON-STAFF] - 1 Week Dina Sotomayor DO [Primary Care Provider] - 1-2 days Nitin Avilez MD [STAFF PHYSICIAN] - 2 Weeks Ambulatory/Diagnostic Orders: Prothrombin Time INR [LAB.AMB] Time Frame: 3 Days, Location: None Selected Activity/Diet/Wound Care/Special Instructions: Diet soft food Activity as tolerated
[2018-06-09] MEDS ORDERED: WARFARIN 2.5 MG TAB PO SCH (18:00)
== END 2018-06-09 16:15 | disposition home health service (06) | DRG 389 ==
LOC: EC 16:35 → 5MS5E 19:43
PROVIDERS: ADMIT Internal Medicine; ATTEND Internal Medicine
DX: K56.7 Ileus, unspecified (principal); J98.11 Atelectasis; N39.0 Urinary tract infection, site not specified; I69.954 Hemiplegia and hemiparesis following unspecified cerebrovascular disease affecting left non-dominant side; E44.1 Mild protein-calorie malnutrition; I48.91 Unspecified atrial fibrillation; R13.10 Dysphagia, unspecified; E78.5 Hyperlipidemia, unspecified; E87.6 Hypokalemia; F41.9 Anxiety disorder, unspecified; I11.9 Hypertensive heart disease without heart failure; K21.9 Gastro-esophageal reflux disease without esophagitis; M81.0 Age-related osteoporosis without current pathological fracture; R79.1 Abnormal coagulation profile; M19.90 Unspecified osteoarthritis, unspecified site; K64.9 Unspecified hemorrhoids; R32 Unspecified urinary incontinence; Z79.01 Long term (current) use of anticoagulants; Z68.21 Body mass index [BMI] 21.0-21.9, adult; Z85.038 Personal history of other malignant neoplasm of large intestine; Z86.718 Personal history of other venous thrombosis and embolism; Z87.891 Personal history of nicotine dependence; Z90.49 Acquired absence of other specified parts of digestive tract; Z90.710 Acquired absence of both cervix and uterus; Z91.81 History of falling; Z88.0 Allergy status to penicillin; Z88.2 Allergy status to sulfonamides; Z88.8 Allergy status to other drugs, medicaments and biological substances; Z96.60 Presence of unspecified orthopedic joint implant; Z86.711 Personal history of pulmonary embolism; Z80.0 Family history of malignant neoplasm of digestive organs; Z80.3 Family history of malignant neoplasm of breast; Z82.3 Family history of stroke; Z82.49 Family history of ischemic heart disease and other diseases of the circulatory system
CPT/HCPCS: 36415; 71046; 74018; 74022; 80053; 81001; 82150; 83690; 84132; 85025; 85610; 87086; 96361; 96365; 96375; 99285